=== PATIENT | male | born 1950 | race Caucasian/White ===

== ENCOUNTER 2022-12-04 18:10 | Outpatient (RCR) | payer MEDICARE, SELFPAY | END 2022-12-29 23:59 | disposition home or self-care (01) | LOC: MM 18:10 | PROVIDERS: PCP Nurse Practitioner Family; Visit Provider Internal Medicine | DX: Z51.81 Encounter for therapeutic drug level monitoring (principal); Z79.01 Long term (current) use of anticoagulants; I48.0 Paroxysmal atrial fibrillation ==

== ENCOUNTER 2022-12-26 09:06 | Outpatient (OUT) | payer MEDICARE, SELFPAY ==
[2022-12-26 09:29] LABS: Basophils Percent Auto 0.3 % (0.2-2.0); Eosinophils Absolute Auto 0.1 10^3/uL (0.0-0.7); Eosinophils Percent Auto 1.7 % (0.9-7.0); Hematocrit 43.9 % (42.0-54.0); Hemoglobin 14.4 g/dL (14.0-18.0); Immature Granulocytes Abs Auto 0.03 10^3/uL (0.00-0.03); Immature Granulocytes Pct Auto 0.5 % (0.0-0.5); Lymphocytes Absolute Auto 1.8 10^3/uL (1.2-3.8); Lymphocytes Percent Auto 31.4 % (20.5-60.0); Mean Corpuscular HGB Conc 32.8 g/dL (29.9-35.2); Mean Corpuscular Hemoglobin 33.3 pg (25.9-34.0); Mean Corpuscular Volume 101.4 fL (80.0-94.0); Mean Platelet Volume 9.6 fL (9.5-13.5); Monocytes Absolute Auto 0.4 10^3/uL (0.3-0.8); Monocytes Percent Auto 7.1 % (1.7-12.0); Neutrophils Absolute Auto 3.4 10^3/uL (1.4-6.5); Platelet Count 275 10^3/uL (150-450); Red Blood Count 4.33 10^6/uL (4.70-6.10); White Blood Count 5.7 10^3/uL (4.0-11.0)
[2022-12-26 10:47] LABS: Estimated Average Glucose 192 mg/dL; Glycohemoglobin A1C 8.3 % (4.5-6.2)
[2022-12-26 11:27] LABS: Alanine Aminotransferase 17 U/L (16-63); Albumin Globulin Ratio 1.2; Albumin Level 3.8 g/dL (3.4-5.0); Alkaline Phosphatase 39 U/L (46-116); Anion Gap 11.7; Aspartate Amino Transferase 19 U/L (15-37); BUN Creatinine Ratio 14.6; Bilirubin Total 0.9 mg/dL (0.2-1.0); Calcium 8.9 mg/dL (8.5-10.1); Carbon Dioxide 30.8 mmol/L (21.0-32.0); Chloride 102 mmol/L (98-107); Cholesterol 112 mg/dL (<=200); Estimated GFR (African America >60 (>=60); Estimated GFR (Non-African Ame >60 (>=60); Free T3 2.05 pg/mL (2.18-3.98); Globulin 3.2 g/dL; Glucose 158 mg/dL (74-106); HDL Cholesterol 57 mg/dL (40-60); LDL Cholesterol Calculated 41.4 mg/dL; Potassium 4.5 mmol/L (3.5-5.1); Sodium 140 mmol/L (136-145); Thyroid Stimulating Hormone 6.165 uIU/mL (0.358-3.740); Triglycerides 68 mg/dL (<=150); Uric Acid 3.3 mg/dL (3.5-7.2); VLDL CHOLESTEROL 13.6 mg/dL
[2022-12-27 11:28] LABS: Insulin 58.8 uIU/mL (2.6-24.9)
== END 2022-12-26 09:07 | disposition home or self-care (01) ==
LOC: LAB 09:09
PROVIDERS: PCP Nurse Practitioner Family; Visit Provider Nurse Practitioner Family
DX: E78.5 Hyperlipidemia, unspecified (principal); Z12.5 Encounter for screening for malignant neoplasm of prostate
CPT/HCPCS: 36415; 80053; 80061; 83036; 83525; 84436; 84443; 84481; 84550; 85025; G0103

== ENCOUNTER 2023-01-03 06:45 | Outpatient (OUT) | payer MEDICARE, SELFPAY ==
[2023-01-03 07:15] LABS: Basophils Percent Auto 0.5 % (0.2-2.0); Eosinophils Absolute Auto 0.1 10^3/uL (0.0-0.7); Eosinophils Percent Auto 1.1 % (0.9-7.0); Hematocrit 40.7 % (42.0-54.0); Hemoglobin 13.3 g/dL (14.0-18.0); Immature Granulocytes Abs Auto 0.03 10^3/uL (0.00-0.03); Immature Granulocytes Pct Auto 0.5 % (0.0-0.5); Lymphocytes Absolute Auto 1.8 10^3/uL (1.2-3.8); Lymphocytes Percent Auto 27.8 % (20.5-60.0); Mean Corpuscular HGB Conc 32.7 g/dL (29.9-35.2); Mean Corpuscular Hemoglobin 33.1 pg (25.9-34.0); Mean Corpuscular Volume 101.2 fL (80.0-94.0); Mean Platelet Volume 9.8 fL (9.5-13.5); Monocytes Absolute Auto 0.6 10^3/uL (0.3-0.8); Monocytes Percent Auto 8.4 % (1.7-12.0); Neutrophils Percent Auto 61.7 % (43.0-75.0); Platelet Count 264 10^3/uL (150-450); Red Blood Count 4.02 10^6/uL (4.70-6.10); White Blood Count 6.5 10^3/uL (4.0-11.0)
[2023-01-03 09:41] LABS: Alanine Aminotransferase 20 U/L (16-63); Albumin Globulin Ratio 1.5; Albumin Level 4.2 g/dL (3.4-5.0); Alkaline Phosphatase 41 U/L (46-116); Anion Gap 11.8; Aspartate Amino Transferase 23 U/L (15-37); BUN Creatinine Ratio 17.3; Bilirubin Direct 0.2 mg/dL (0.0-0.2); Bilirubin Total 0.8 mg/dL (0.2-1.0); Calcium 8.6 mg/dL (8.5-10.1); Carbon Dioxide 27.6 mmol/L (21.0-32.0); Chloride 103 mmol/L (98-107); Cholesterol 117 mg/dL (<=200); Estimated GFR (African America >60 (>=60); Estimated GFR (Non-African Ame >60 (>=60); Globulin 2.8 g/dL; Glucose 195 mg/dL (74-106); HDL Cholesterol 58 mg/dL (40-60); LDL Cholesterol Calculated 45.6 mg/dL; Potassium 4.4 mmol/L (3.5-5.1); Sodium 138 mmol/L (136-145); Triglycerides 67 mg/dL (<=150); VLDL CHOLESTEROL 13.4 mg/dL
[2023-01-04 05:07] LABS: HBsAg Screen Negative (Negative); HCV Antibody Non Reactive (Non Reactive); Hep B Core Ab, Tot Negative (Negative); Hep B Surface Ab Non Reactive (.)
[2023-01-05 11:08] LABS: QuantiFERON-TB Gold Plus Negative (Negative)
== END 2023-01-03 06:46 | disposition home or self-care (01) ==
LOC: LAB 06:45
PROVIDERS: PCP Nurse Practitioner Family; Visit Provider Dermatology
DX: L40.0 Psoriasis vulgaris (principal); Z79.899 Other long term (current) drug therapy
CPT/HCPCS: 36415; 80053; 80061; 82248; 85025; 86480; 86704; 86706; 86803; 87340

== ENCOUNTER 2023-11-01 08:25 | Outpatient (OUT) | payer MEDICARE, SELFPAY ==
[2023-11-01 08:56] LABS: Anion Gap 12.3; BUN Creatinine Ratio 14.3; Calcium 9.1 mg/dL (8.5-10.1); Carbon Dioxide 28.9 mmol/L (21.0-32.0); Chloride 104 mmol/L (98-107); Estimated GFR (African America >60 (>=60); Estimated GFR (Non-African Ame >60 (>=60); Glucose 124 mg/dL (74-106); Potassium 4.2 mmol/L (3.5-5.1); Sodium 141 mmol/L (136-145)
== END 2023-11-01 08:26 | disposition home or self-care (01) ==
LOC: LAB 08:27
PROVIDERS: PCP Nurse Practitioner Family; Visit Provider Internal Medicine Cardiovascular Disease
DX: I48.0 Paroxysmal atrial fibrillation (principal)
CPT/HCPCS: 36415; 80048

== ENCOUNTER 2023-12-11 07:34 | Outpatient (OUT) | payer MEDICARE, SELFPAY ==
--- OUTSIDE RECORDS SUMMARY | 2023-12-11 07:38 | XMS_ITS | CCD ---
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 Role Phone Miladis Pereira Primary Care Provider [phone] UNKNOWN, PHYSICIAN Primary Care Unavailable SELF, REFERRED Referring Unavailable AREN SPARROW Attending Unavailable AREN SPARROW Admitting Unavailable BENJAMIN PATEL Attending Unavailable BENJAMIN PATEL Admitting Unavailable SELF, REFERRED Referring Unavailable SELF, REFERRED Primary Care Unavailable UNKNOWN, PHYSICIAN Primary Care Unavailable SELF, REFERRED Referring Unavailable KAYLA BETTS Attending Unavailable KAYLA BETTS Admitting Unavailable LAKSHMIPATHY ., CATIA Attending Leena vailable LAKSHMIPATHY ., ROSAATH Admitting Leena vailable HOY ., DR PALACIOS Primary Care Unavailable FAWWAD, ONTIVEROS H Admitting Unavailable HOY ., DR PALACIOS Primary Care Unavailable FAWWAD, ONTIVEROS H Attending Unavailable FAWWAD, ONTIVEROS H Admitting Unavailable HOY ., DR PALACIOS Primary Care Unavailable FAWWAD, ONTIVEROS H Attending Unavailable SYDNEE ., DR VARSHA Gonzalez Admitting Unavailable MILADIS PEREIRA Primary Care Unavailable RANDHAWA ., DR VARSHA Gonzalez Attending Unavailable SYDNEE ., DR VARSHA Gonzalez Consulting Unavailable LAKSHMIPATHY ., CATIA Consulting Leena vailable LAKSHMIPATHY ., NARENDTINYATH Attending Leena vailable LAKSHMIPATHY ., NARENDTINYATH Admitting Leena vailable MILADIS PEREIRA Primary Care Unavailable FAWWAD, ONTIVEROS H Admitting Unavailable HOY ., DR PALACIOS Primary Care Unavailable FAWWAD, ONTIVEROS H Attending Unavailable FAWWAD, ONTIVEROS H Admitting Unavailable FAWWAD, ONTIVEROS H Attending Unavailable HOY ., DR PALACIOS Primary Care Unavailable HOY ., DR PALACIOS Primary Care Unavailable HOY ., DR PALACIOS Consulting Unavailable RANDHAWA ., DR VARSHA Gonzalez Attending Unavailable RANDHAWA ., DR VARSHA Gonzalez Admitting Unavailable RANDHAWA ., DR VARSHA Gonzalez Consulting Unavailable AGUBOSIM, LOULOU Consulting Unavailable LAKSHMIPATHY ., NARENDRANATH Consulting Leena vailable LAKSHMIPATHY ., NARENDRANATH Attending Leena vailable LAKSHMIPATHY ., NARENDRANATH Admitting Leena vailable HOY ., DR PALACIOS Primary Care Unavailable FAWWAD, ONTIVEROS H Admitting Unavailable HOY ., DR PALACIOS Primary Care Unavailable FAWWAD, ONTIVEROS H Attending Unavailable FAWWAD, ONTIVEROS H Admitting Unavailable HOY ., DR PALACIOS Primary Care Unavailable FAWWAD, ONTIVEROS H Attending Unavailable FAWWAD, ONTIVEROS H Admitting Unavailable HOY ., DR PALACIOS Primary Care Unavailable FAWWAD, ONTIVEROS H Attending Unavailable FAWWAD, ONTIVEROS H Admitting Unavailable FAWWAD, ONTIVEROS H Attending Unavailable HOY ., DR PALACIOS Primary Care Unavailable FAWWAD, ONTIVEROS H Attending Unavailable FAWWAD, ONTIVEROS H Admitting Unavailable [facility] Primary Care Unavailable FAWWAD, ONTIVEROS H Admitting Unavailable HOY ., DR PALACIOS Primary Care Unavailable FAWWAD, ONTIVEROS H Attending Unavailable LAKSHMIPATHY ., NARENDRANATH Attending Leena vailable LAKSHMIPATHY ., NARENDRANATH Admitting Leena vailable HALKER ., ROSLYN Consulting Unavailable [facility] Primary Care Unavailable ALEX ., DIANA Consulting Unavailable RANDHAWA ., DR VARSHA Gonzalez Admitting Unavailable RANDHAWA ., DR VARSHA Gonzalez Attending Unavailable HOY ., DR PALACIOS Primary Care Unavailable LAKSHMIPATHY ., NARENDRANATH Attending Leena vailable LAKSHMIPATHY ., NARENDRANATH Admitting Leena vailable CÉSAR IBANEZ Consulting Unavaila ble [facility], [place] Primary Care Unavailable LAKSHMIPATHY ., NARENDRANATH Consulting Leena vailable LAKSHMIPATHY ., NARENDRANATH Admitting Leena vailable LAKSHMIPATHY ., CATIA Attending Leena esilable RAFFAELE ., DR PALACIOS Primary Care Unavailable RICHARD, DR MAKENNA Lopez Consulting Unavailable LAKSHMIPATHY ., CATIA Consulting Leena vailable ALGHOTHANI, MOHAMAD Attending Unavailable RICHARD, DR MAKENNA Lopez Consulting Unavailable ALGHOTHANI, MOHAMAD Admitting Unavailable MILADIS PEREIRA Primary Care Unavailable MARISEL, DEEJAY Consulting Unavailable RAFFAELE ., DR PALACIOS Consulting Unavailable SYDNEE ., DR VARSHA Gonzalez Admitting Unavailable RAFFAELE ., DR PALACIOS Primary Care Unavailable RANDHAWA ., DR VARSHA Gonzalez Attending Unavailable ISAI .DIANA Consulting Unavailable FAFLAQUITA, H Admitting Unavailable LIAN PARKIKH H Attending Unavailable MILADIS PEREIRA Primary Care Unavailable AREN SPARROW Attending Unavailable MIMI HERNANDEZ Attending Unavailable AREN SPARROW Admitting Unavailable AREN SPARROW Attending Unavailable AREN SPARROW Referring Unavailable AREN SPARROW Referring Unavailable Allergies Allergy Classification Reported Allergen(s) Allergy Type Date of Onset Reaction(s) Facility (2 sources) Clindamycin; Translations: [CLINDAMYCIN PHOSPHATE] Drug Allergy 12-12-2018 [facility] Medications Completed/Discontinued Medications Medication Drug Class(es) Dates Sig (Normalized) Sig (Original) atorvastatin 80 mg oral tablet (1 source) HMG-CoA Reductase Inhibitor Start: 02-23-2020 atorvastatin (LIPITOR) 80 mg tablet Take by mouth. 0 02/23/2020 Active Comment on above: Take by mouth. glipiZIDE 5 mg oral tablet (1 source) Sulfonylurea Start: 02-23-2020 glipiZIDE (GLUCOTROL) 5 mg tablet Take by mouth. 0 02/23/2020 Active Comment on above: Take by mouth. insulin, isophane / Regular Insulin, Human (1 source) Insulin Start: 11-11-2019 insulin NPH-insulin regular (HumuLIN 70/30) pen Inject subcutaneously. 0 11/11/2019 Active Comment on above: Inject subcutaneousl y. lisinopril 2.5 mg oral tablet (1 source) Angiotensin Converting Enzyme Inhibitor Start: 02-23-2020 lisinopril 2.5 mg tablet Take by mouth. 0 02/23/2020 Active Comment on above: Take by mouth. metFORMIN hydrochloride 1000 mg oral tablet (1 source) Biguanide Start: 02-23-2020 metFORMIN (GLUCOPHAGE) 1,000 mg tablet Take by mouth. 0 02/23/2020 Active Comment on above: Take by mouth. sotalol hydrochloride 80 mg oral tablet (1 source) Antiarrhythmic Start: 11-11-2019 sotalol (BETAPACE) 80 mg tablet Take 80 mg by mouth. 0 11/11/2019 Active Comment on above: Take 80 mg by mouth. warfarin sodium 5 mg oral tablet (1 source) Vitamin K Antagonist Start: 02-23-2020 warfarin (COUMADIN) 5 mg tablet Take by mouth. 0 02/23/2020 Active Comment on above: Take by mouth. Problems Problem Classification Problem Date Documented Date Episodic/Chronic Cancer of bladder (1 source) Personal history of malignant neoplasm of bladder; Translations: [PERSONAL HX MALIG NEOPLASM BLADDER] Onset: 11-09-2022 Episodic Cardiac dysrhythmias (7 sources) Paroxysmal atrial fibrillation; Translations: [PAROXYSMAL ATRIAL FIBRILLATION] Onset: 10-02-2022 Chronic Cardiac dysrhythmias (2 sources) Bradycardia, unspecified; Translations: [Bradycardia, unspecified] Onset: 11-21-2022 Episodic Congestive heart failure; nonhypertensive (2 sources) Chronic systolic (congestive) heart failure; Translations: [Chronic systolic (congestive) heart failure] Onset: 11-03-2022 Chronic Coronary atherosclerosis and other heart disease (2 sources) Atherosclerotic heart disease of [place] coronary artery without angina pectoris; Translations: [Atherosclerotic heart disease of [place] coronary artery without angina pectoris] Onset: 11-03-2022 Chronic Diabetes mellitus without complication (1 source) Type 2 diabetes mellitus without complications; Translations: [TYPE 2 DM WITHOUT COMPLICATIONS] Onset: 11-09-2022 Chronic Disorders of lipid metabolism (5 sources) Pure hypercholesterolemia, unspecified; Translations: [Mixed hyperlipidemia] Onset: 03-17-2022 Chronic Essential hypertension (3 sources) Essential (primary) hypertension; Translations: [ESSENTIAL PRIMARY HYPERTENSION] Onset: 03-17-2022 Chronic Other aftercare (1 source) snf (current) use of insulin; 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] Onset: 11-09-2022 Episodic Other aftercare (1 source) medical terminologist (current) use of aspirin; Translations: [SKILLED NURSING CURRENT USE OF ASPIRIN] Onset: 11-09-2022 Episodic Other aftercare (1 source) medical terminologist (current) use of oral hypoglycemic drugs; Translations: [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 USE ORAL HYPOGLYCEMIC DX] Onset: 11-09-2022 Episodic Other aftercare (5 sources) Encounter for therapeutic drug level monitoring; Translations: [[facility] DRUG LEVL MONITORING] Onset: 10-28-2022 Episodic Other aftercare (1 source) medical terminologist (current) use of anticoagulants; Translations: [SKILLED NURSING CURRNT USE ANTICOAGULANTS] Onset: 11-29-2022 Episodic Other aftercare (4 sources) Other senior care (current) drug therapy; Translations: [OTH SKILLED NURSING CURRENT DRUG THERAPY] Onset: 10-23-2022 Episodic Other nervous system disorders (1 source) Other chronic pain; Translations: [OTHER CHRONIC PAIN] Onset: 10-18-2022 Chronic Residual codes; unclassified (1 source) Procedure and treatment not carried out for other reasons; Translations: [PROC AND TX NOT CARRIED OUT OTH REASONS] Onset: 11-09-2022 Episodic Screening and history of mental health and substance abuse codes (1 source) Personal history of nicotine dependence; Translations: [PERSONAL HISTORY OF NICOTINE DEPEND] Onset: 11-09-2022 Episodic Spondylosis; intervertebral disc disorders; other back problems (4 sources) Other spondylosis with radiculopathy, lumbar region; Translations: [OTH SPONDYLS RADICULOPATHY LUMB RGN] Onset: 02-02-2022 Chronic Spondylosis; intervertebral disc disorders; other back problems (5 sources) Radiculopathy, lumbar region; Translations: [Intervertebral disc disorders with radiculopathy, lumbar region] Onset: 02-06-2022 Episodic Unclassified (1 source) LOW BACK PAIN, UNSPECIFIED; Translations: [LOW BACK PAIN, UNSPECIFIED] Onset: 05-15-2022 Unclassified (1 source) CONTACT W/AND (SUSP) EXPOS COVID-19; Translations: [CONTACT W/AND (SUSP) EXPOS COVID-19] Onset: 2022 Results Test Name Value Interpretation Reference Range Facility Physician Referralon 024 Physician Referral [id number] [facility] Office Visiton 11-21-2023 Follow-up visit [id number] Lenard Pitts 1950 M Date Provider Department Center 11/21/2023 Juan Manuel-MIMI HERNANDEZ [facility] No family history on file Level of Service:77240 NE OFFICE/OUTPATIENT ESTABLISHED MOD MDM 30 MIN Reason for Visit and Comments: Follow-up [887646] - Follow up from cardioversion Normal [facility] 11-05-2023 [facility] Electrophysiology Consult Note Reason for visit: afib HPI: Lenard Pitts is a 73 y.o. year old with past medical history of HTN/ DM2/ Persistent/? Permanent A-fib on amiodarone, metoprolol and warfarin, CAD, hypertension, hyperlipidemia. He was recently at [facility] ER in August 2021 for strokelike symptoms which have resolved and MRI at the time was negative for any acute infarct. He has history of cardioversion x2 and failed therapy on sotalol. Currently asymptomatic of his A-fib and has been tolerating amiodarone Denies chest pain, SOB, palpitations, lightheadedness/syncop e, and bleeding on Eliquis. No recent labs/imaging. He was seen by Kishor KHALIL and was started on amiodarone. seem to be tolerating his DOAC. PMH: No past medical history on file. PSH: No past surgical history on file. SH: Social Determinants of Health Tobacco Use: Medium Risk (11/21/2022) Patient History Smoking Tobacco Use: Former Smokeless Tobacco Use: Never Passive Exposure: Not on file Alcohol Use: Not on file Financial Resource Strain: Not on file Food Insecurity: Not on file Transportation Needs: Not on file Physical Activity: Not on file Stress: Not on file Social Connections: Not on file Intimate Partner Violence: Unknown (08/23/2023) MD Safety & Environment Fear of Current or Ex-Partner: Not on file Emotionally Abused: Not on file Physically Abused: Not on file Sexually Abused: Not on file Physically or Sexually Abused: Not on file Depression: Not on file Housing Stability: Not on file Utilities: Not on file Allergies: Allergies Allergen Reactions Clindamycin Phosphate Swelling Weight: 86.2kg Visit Vitals BP 133/76 Pulse 55 Resp 18 Wt 83.9 kg (185 lb) SpO2 99% BMI 28.98 kg/m??? Smoking Status Former BSA 1.99 m??? Meds: No current facility-administered medications on file prior to encounter. Current Outpatient Medications on File Prior to Encounter Medication Sig Dispense Refill amiodarone (Pacerone) 200 mg tablet Take 1 tablet (200 mg) by mouth once daily as directed. 90 tablet 3 apixaban (Eliquis) 5 mg tablet Take 1 tablet (5 mg) by mouth in the morning and at bedtime. 60 tablet 11 apixaban (Eliquis) 5 mg tablet Take 1 tablet (5 mg) by mouth in the morning and at bedtime. 180 tablet 3 aspirin 81 mg chewable tablet Chew 1 tablet every day by oral route. atorvastatin (Lipitor) 80 mg tablet Take 1 tablet every day by oral route. empagliflozin (Jardiance) 10 mg Take 1 tablet every day by oral route for 30 days. 90 tablet 3 folic acid (Folvite) 1 mg tablet TAKE ONE PILL BY MOUTH ON THE DAYS NOT TAKING THE METHOTREXATE. insulin NPH and regular human (NovoLIN) 100 unit/mL (70-30) injection lisinopril 5 mg tablet TAKE 1 TABLET EVERY DAY (Patient taking differently: Take 2.5 mg by mouth in the morning.) 90 tablet 3 metFORMIN (Glucophage) 1,000 mg tablet Take 1 tablet twice a day by oral route for 90 days. methotrexate 2.5 mg tablet TAKE 4 TABLETS BY MOUTH ONCE WEEKLY ON SUNDAY metoprolol succinate XL (Toprol-XL) 25 mg 24 hr tablet TAKE 1 TABLET ONE TIME DAILY DIRECTED . DO NOT CRUSH OR CHEW 90 tablet 3 multivitamin tablet Take 1 tablet by mouth in the morning. amiodarone (Pacerone) 200 mg tablet Take 1 tablet (200 mg) by mouth in the morning. 90 tablet 3 empagliflozin (Jardiance) 25 mg Take 25 mg by mouth in the morning. nitroglycerin (Nitrostat) 0.4 mg SL tablet [DISCONTINUED] warfarin (Coumadin) 5 mg tablet Take by mouth. ROS: Review of Systems HENT: Positive for hearing loss. Musculoskeletal: Positive for back pain and joint pain. All other systems reviewed and are negative. Physical Exam: Constitutional General Appearance: well-nourished, well-developed, appears stated age Level of Distress: comfortable Psychiatric Mental Status: alert, normal affect Orientation: oriented to time, place, and person Insight: good judgement Eyes Lids and Conjunctivae: non-injected, no xanthelasma ENMT Ears: no lesions on external ear Nose: no lesions on external nose Oropharynx: no cyanosis, no pallor Neck Neck: supple, trachea midline Carotid Arteries: bilateral normal upstroke, no bruits Jugular Veins: normal jugular venous pressure Thyroid: not enlarged Lungs Respiratory Effort: unlabored Chest Exam: normal curvature, no thoracic deformity Auscultation: clear, no wheezing, no rales, no rhonchi Cardiovascular Rate And Rhythm: regular Heart Sounds: normal S1, normal s2, no gallop Systolic Murmur: not heard Diastolic Murmur: not heard Extremities: no cyanosis, no edema, no peripheral signs of emboli Peripheral Pulses Radial Pulse: normal Abdomen Inspection and Palpation: soft, non distended, no bruit, non tender Musculoskeletal Inspection: no joint swelling Neurologic Gait: normal gait Skin Inspection and Palpation: warm and dry Nails: no clubbing Labs: 10/23/22 TSH elevated Liver function no (more content not included)... Normal [facility] NURSNOTEon 11-05-2023 NURSNOTE RN educated pt on d/ c instructions. RN encouraged pt to voice any questions or concerns. Pt verbalizes no questions or concerns at this time. Pt was wheeled off of unit with all of belongings. Normal [facility] Orders Onlyon 10-29-2023 Orders Only [id number] Lenard Pitts 1950 M Date Provider Department Center 10/29/2023 JOSUE SMITH [facility] No family history on file Normal [facility] Office Visiton 10-16-2023 Follow-up visit [id number] Lenard Pitts 1950 M Date Provider Department Center 10/16/2023 Alysha-AREN SPARROW [facility] No family history on file Level of Service:47879 NE OFFICE/OUTPATIENT NEW MODERATE MDM 45 MINUTES Normal [facility] POINT OF CARE GLUCOSEon 05-0 Glucose [Mass/Vol] 228 mg/dL Critically high 74-106 [facility] Comment on above: Performed By: #### P OCGLUC #### [facility] [address] [place], [place] [address] Dr. Alex Doll PROTIMEon 11-07-2022 INR Coag (PPP) [Relative time] 1.03 {INR} Normal [facility] Comment on above: Performed By: #### T , LIVER #### [facility] [address] [place], [place] [address] Dr. Alex Doll INR GUIDELINES SEE BELOW Normal [facility] Comment on above: Result Comment: TARA RED INR: 2.0 - 3.0 CONDITIONS NOT LISTED BELOW 2.5 - 3.5 FOR PROSTHETIC HEART VALVE REPLACEMENT 2.5 - 3.5 RECURRENT THROMBOSIS Performed By: #### T SH, LIVER #### [facility] [address] [place] [address] [address] Alex Doll PT Coag (PPP) [Time] 10.9 s Normal 9.0-11.6 [facility] Comment on above: Performed By: #### T , LIVER #### [facility] [address] [place] [address] [address] Alex Doll MRI LSPINE WO CONon 11-02-19 MRI LSPINE WO CON EXAM: MRI LSPINE WO CON HISTORY: Lumbar radiculopathy COMPARISON: Lumbar spine radiographs 10/17/[address] lumbar spine 10/13/2021. TECHNIQUE: Multiplanar multisequence MR imaging of the lumbar spine was performed without intravenous contrast. FINDINGS: Alignment: No substantial subluxation. Vertebrae: Vertebral body heights are maintained. No marrow signal abnormalities to suggest neoplasm. Conus medullaris: Conus terminates in normal position at L2. Normal signal and contour. Degenerative changes: Lower thoracic spine: Disc desiccation and disc height loss with Schmorl's nodes. Small disc bulges at T11-T12. There is mild canal stenosis at T10-T11. Moderate bilateral foraminal stenosis. T12-L1: Mild disc height loss with diffuse disc bulge. Minimal facet arthropathy. Mild canal stenosis. No substantial foraminal stenosis. L1-L2: Minimal diffuse disc bulge. Mild right greater than left facet arthropathy with minimal thickening of ligamentum flavum. No substantial canal stenosis. Mild right foraminal stenosis. Left foramen is patent. Schmorl's node involving superior endplate of L1.. L2-L3: Diffuse disc bulge slightly eccentric to left. Mild to moderate right and mild left facet arthropathy with thickening of ligamentum flavum. Mild to moderate canal stenosis. Moderate right and mild to moderate left foraminal stenosis. L3-L4: Diffuse disc bulge. Moderate facet arthropathy with thickening of ligamentum flavum. Moderate canal stenosis. Moderate right greater than left foraminal stenosis. L4-L5: Eccentric left disc bulge. Moderate left and mild right facet arthropathy with prominent thickening of ligamentum flavum greater on the left. Mild canal stenosis with narrowing of left subarticular recess. Mild right and advanced left foraminal stenosis. There is an anteriorly projecting left synovial cyst measuring 3.5 x 5.2 x 12 mm. L5-S1: Moderate left and mild right facet arthropathy. No substantial canal or foraminal stenosis. Upper Sacrum: No focal lesion identified. Additional comments: Visualized intra-abdominal/pelvic soft tissues are grossly unremarkable. IMPRESSION: 1. Moderate degenerative change of lower thoracic and lumbar spine as detailed above with canal stenosis most prominent at L3-L4 with moderate canal stenosis. 2. Prominent degenerative changes are also noted at L4-L5 with anteriorly projecting left synovial cyst detailed above. 3. Varying degrees of foraminal stenosis detailed above. Electronically authenticated by: CÉSAR IBANEZ Date: 2022-11-01 10:08 Normal [facility] FREE T4on 10-23-2022 Free T4 [Mass/Vol] 0.89 ng/dL Normal 0.76-1.46 [facility] Comment on above: Performed By: #### F T4 #### [facility] [address] [place] [address] Dr. Alex Doll LIVER PROFILEon 10-23-2022 Albumin [Mass/Vol] 3.8 g/dL Normal 3.4-5.0 [facility] Comment on above: Performed By: #### T SH, LIVER #### [facility] [address] [place] [address] Dr. Alex Doll Albumin/Globulin [Mass ratio] 1.2 {ratio} Normal [facility] Comment on above: Performed By: #### T SH, LIVER #### [facility] [address] [place] [address] Dr. Alex Doll ALP [Catalytic activity/Vol] 40 U/L Critically low 46-116 [facility] Comment on above: Performed By: #### T SH, LIVER #### [facility] [address] [place] [address] Dr. Alex Doll ALT [Catalytic activity/Vol] 20 U/L Normal 16-63 [facility] Comment on above: Performed By: #### T SH, LIVER #### [facility] [address] [place] [address] [address] Alex Doll AST [Catalytic activity/Vol] 22 U/L Normal 15-37 [facility] Comment on above: Performed By: #### T SH, LIVER #### [facility] [address] [place] [address] Dr. Alex Doll BILI, CONJUGATED 0.2 mg/dL Normal 0.0-0.2 [facility] Comment on above: Performed By: #### T EVER, LIVER #### [facility] [address] [place] [address] Dr. Alex Doll Bilirubin [Mass/Vol] 0.9 mg/dL Normal 0.2-1.0 [facility] Comment on above: Performed By: #### T SH, LIVER #### [facility] [address] [place] [address] Dr. Alex Doll Globulin (S) [Mass/Vol] 3.3 g/dL Normal [facility] Comment on above: Performed By: #### T EVER, LIVER #### [facility] [address] [place] [address] Dr. Alex Doll Protein [Mass/Vol] 7.1 g/dL Normal 6.4-8.2 [facility] Comment on above: Performed By: #### T SH, LIVER #### [facility] [address] [place] [address] Dr. Alex Doll TSHon 10-23-2022 TSH 6.589 uIU/mL Critically high 0.358-3.740 [facility] Comment on above: Performed By: #### T SH, LIVER #### [facility] [address] [place] [address] [address] Alex Doll XR CHEST 2 Von 10-23-2022 XR CHEST 2 V EXAMINATION: XR CHES T 2 V HISTORY: Long-term current use of drug therapy COMPARISON: XR chest 10/14/2021 FINDINGS: LUNGS: No significant pulmonary parenchymal abnormalities. VASCULATURE: No increased pulmonary vasculature. PLEURA: No pneumothorax, effusion, or pleural thickening. CARDIAC: No cardiomegaly or cardiac silhouette abnormality. MEDIASTINUM: No visible mass or adenopathy. BONES: No fracture or visible bone lesion. OTHER: Negative. IMPRESSION: 1. No acute cardiopulmonary process or significant fibrosis. Electronically authenticated by: MAKENNA RAMOS Date: 2022-10-23 08:[address] [facility] XR LSPINE 2_3 VIEWSon 2022 XR LSPINE 2_3 VIEWS EXAMINATION: XR LSPI NE 2_3 VIEWS HISTORY: Lumbar radiculopathy COMPARISON: XR L-spine 10/14/2021 FINDINGS: BONES: Moderate left convex curvature of thoracolumbar spine. No fracture or spondylolisthesis. Moderate-marked degenerative facet arthropathy L4-L5, L5-S1. DISC SPACES: Mild-moderate narrowing at all lumbar levels. Mild-moderate foramen narrowing L3-L4 through L5-S1. PARASPINOUS: Negative. No paraspinous abnormality is seen. OTHER: Negative. IMPRESSION: 1. Multilevel moderate degenerative changes of lumbar spine; not appreciably changed. Electronically authenticated by: MAKENNA RAMOS Date: 2022-10-17 09:[address] [facility] POINT OF CARE GLUCOSEon 12-30 Glucose [Mass/Vol] 154 mg/dL Critically high 74-[address] [facility] Comment on above: Performed By: #### P OCGLUC #### [facility] [address] [address] [address] Alex Doll Covid-19 PCR (CVDTB)on 12-30 SARS-CoV-2 (COVID-19) RNA RICH+probe Ql (Unsp spec) Not detected Normal NOT DETECTED [facility] Comment on above: Result Comment: This test is not yet approved or cleared by the [place] FDA. When there are no FDA-approved or cleared tests available, and other criteria are met, FDA can make tests available under an emergency access mechanism called an Emergency Use Authorization (EUA). The EUA for this test is supported by the [place] of Health and Human Service's (HHS's) declaration that circumstances exist to justify the emergency use of in vitro diagnostics for the detection and/or diagnosis of the virus that causes COVID-19. This EUA will remain in effect (meaning this test can be used) for the duration of the COVID-19 declaration justifying emergency of IVDs, unless it is terminated or revoked by FDA (after which the test may no longer be used). When diagnostic testing is negative, the possibility of a false negative should be considered in the context of a patient's recent exposures and the presence of clinical signs and symptoms consistent with SARS-CoV-2. Performed By: #### T , LIVER #### [facility] [address] [address] [address] Alex Doll Cardiovascular Lab Reporton 07-01-2021 Cardiovascular Lab Report [facility] Patient Name: Lenard Pitts MR #: [id number] [facility] Physician: Benjamin Patel CNP Department of Service Date: 06/29/2021 Medicine Birthdate: 1950 Division of Room #: CC Cardiology Adult Cardiovascular Services [place] [address] Cardiovascular Laboratory Report FINAL IMPRESSIONS: 1. Mild CAD, stable from previous coronary angiography RECOMMENDATIONS: 1. Aggressive risk factor modification. 2. Optimization of medical management for non obstructive CAD 3. Follow up with PCP as scheduled PROCEDURE: After risks, benefits, and alternatives were explained, written informed consent was obtained. The patient was prepped and draped in usual sterile fashion. Using 1% lidocaine solution, local infiltration anesthesia was achieved over the left radial artery. Using a micropuncture kit, access to the right radial artery was obtained. Coronary angiography was performed using the JR4 guide cathether and JL4 diagnositc catheters. After reviewing the images, it was elected to conclude the procedure. Overall, the patient tolerated the procedure well. There were no obvious complications. He was to be transferred to Recovery in stable condition. FINDINGS: Hemodynamics: AO 126/76. Left Ventriculography: This was not performed. Ejection fraction: Normal by noninvasive imaging. CORONARY ARTERIES: Left Main Coronary Artery: This arises from the left coronary cusp. It bifurcates into the left anterior descending and left circumflex coronary artery. No significant stenosis noted Left Anterior Descending: Luminal irregularities throughout in LAD. Patient has 50% stenosis in ostial septal branch. This is a small branch and image appears stable from previous coronary angiography Left Circumflex: No signficiant stenosis noted Right coronary artery: This arises from the right coronary cusp. No significant stenosis noted. INDICATIONS: Chest pain Electronically Signed by: Deejay Hermosillo MD 07/01/2021 11:41 A Benjamin Patel CNP Date Dict: 07/01/2021/11:33 A/Deejay Hermosillo MD Date Trans: 07/01/2021 11:33 A/ [id number] Normal [facility] CBC W/DIFFon 06-29-2021 ABS IMM GRANS 0.0 10*3/uL Normal 0.0-0.2 [facility] Comment on above: Performed By: #### 5 0103 #### [facility] [address] [place] [address], [facility] ABS NEUTROPHILS 4.2 10*3/uL Normal 1.6-7.6 [facility] Comment on above: Performed By: #### 5 0103 #### [facility] [address] [place] [address], [facility] Basophils (Bld) [#/Vol] 0.0 10*3/uL Normal 0.0-0.2 [facility] Comment on above: Performed By: #### 5 0103 #### [facility] [address] [place] [address], [facility] Basophils/100 WBC (Bld) 0.6 % Normal 0.0-1.0 [facility] Comment on above: Performed By: #### 5 0103 #### [facility] [address] [place] [address], [facility] Eosinophils (Bld) [#/Vol] 0.1 10*3/uL Normal 0.0-0.5 [facility] Comment on above: Performed By: #### 5 0103 #### [facility] [address] [place] [address], [facility] Eosinophils/100 WBC (Bld) 1.3 % Normal 0.0-6.0 [facility] Comment on above: Performed By: #### 5 0103 #### [facility] [address] Erythrocyte distribution width (RBC) [Ratio] 12.7 % Normal 11.5-15.0 [facility] Comment on above: Performed By: #### 5 0103 #### [facility] [address] [place] [address], [facility] Hematocrit (Bld) [Volume fraction] 43.8 % Normal 39.0-50.0 [facility] Comment on above: Performed By: #### 5 0103 #### [facility] [address] [place] [address], [facility] Hemoglobin (Bld) [Mass/Vol] 14.5 g/dL Normal 13.0-17.0 [facility] Comment on above: Performed By: #### 5 0103 #### [facility] [address] [place] [address], [facility] IMMATURE GRANS 0.3 % Normal 0.0-1.0 [facility] Comment on above: Performed By: #### 5 0103 #### [facility] [address] [place] [address], [facility] Lymphocytes (Bld) [#/Vol] 1.9 10*3/uL Normal 1.2-4.0 [facility] Comment on above: Performed By: #### 5 0103 #### [facility] [address] [place] [address], [facility] Lymphocytes/100 WBC (Bld) 28.5 % Normal 20.0-45.0 [facility] Comment on above: Performed By: #### 5 3 #### [facility] [address] [place] [address], [facility] MCH (RBC) [Entitic mass] 32.7 pg Normal 27.0-33.0 [facility] Comment on above: Performed By: #### 3 #### [facility] [address] [facility] [place] [address], [facility] MCHC (RBC) [Mass/Vol] 33.1 g/dL Normal 32.0-35.0 [facility] Comment on above: Performed By: #### 5 3 #### [facility] [address] [facility] [place] [address], [facility] MCV (RBC) [Entitic vol] 98.9 fL High 82.0-98.0 [facility] Comment on above: Performed By: #### 5 102 #### [facility] [address] [place] [address], [facility] Monocytes (Bld) [#/Vol] 0.5 10*3/uL Normal 0.1-1.0 [facility] Comment on above: Performed By: #### 5 3 #### [facility] [address] [facility] [place] [address], [facility] MONOS 7.4 % Normal 5.0-12.0 [facility] Comment on above: Performed By: #### 5 3 #### [facility] [address] [place] [address], [facility] Neutrophils/100 WBC (Bld) 61.9 % Normal 40.0-72.0 [facility] Comment on above: Performed By: #### 102 #### [facility] [address] [facility] [place] [place] [address], [facility] Nucleated RBC/100 WBC (Bld) [Ratio] 0 % Normal 0-0 [facility] Comment on above: Performed By: #### 5 0103 #### [facility] [address] [place] [address], [facility] PLAT CNT 249 10*3/uL Normal 150-400 [facility] Comment on above: Performed By: #### 5 0103 #### [facility] [address] [place] [address], [facility] RBC (Bld) [#/Vol] 4.43 10*6/uL Normal 4.20-5.70 [facility] Comment on above: Performed By: #### 5 0103 #### [facility] [address] [place] [address], [facility] WBC (Bld) [#/Vol] 6.74 10*3/uL Normal 4.00-10.60 [facility] Comment on above: Performed By: #### 5 0103 #### [facility] [address] [place], [place] [id number] [place] [address] Cardiovascular Lab Reporton 05-16-2021 Cardiovascular Lab Report [facility] Patient Name: Lenard Pitts [facility] MR #: [id number] Physician: Aren Sparrow MD Department of Service Date: 05/16/2021 Medicine Birthdate: 1950 Division of Room #: CC Cardiology Adult Cardiovascular Services [facility] [address] [place], [place] [address] Cardiovascular Laboratory Report DIRECT CARDIOVERSION PROCEDURE NOTE Date: 05/16/2021. Type of procedure: DC Cardioversion. Performed by: Aren Sparrow MD. Informed consent: Signed by patient. Indication: Afib. Preparation and technique: 71-year-old gentleman who was seen by Jazmyn Patel in the [facility] who had a previous cardioversion in 2019 and that converted to sinus rhythm. 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 He had previously failed sotalol cardioversion and so he was brought after anticoagulation. After an informed consent was obtained following a discussion with the patient where I explained the risk and benefit of the procedure that is not limited to skin davis, fluid in the lungs, heart attack, stroke, or even , though that is very rare. Patches were placed in anteroposterior direction and patient was made comfortable with Versed 3mg/ Fentanyl 25mcg. Following sedation, the patient underwent 360 joules synchronized which failed to cardiovert and with repositioning and 360J. he converted to sinus rhythm. Post procedure, the patient was stable. No complications noted. Plan: Continue anticoagulation. Ct Amiodarone. Aren Sparrow MD Cardiac Electrophysiology Electronically Signed by: Aren Sparrow MD 05/18/2021 09:45 A Aren Sparrow MD Date Dict: 05/16/2021/12:56 P/Aren Sparrow MD Date Trans: 05/16/2021 03:42 P/alicia [id number] Normal [facility] CNOVon 11-23-2020 CNOV Office Visit (MARKO ) LENARD PITTS ([id number]) 1950 M Date Time Provider Department 11/23/20 2:00 PM WEIGHT, COLE ZHU During your visit today, we recorded the following information about you: Rula Nobles APRN.DOPE SPRAYER 11/23/2020 9:19 PM Signed No show Referring Provider: SREEDHAR THURMAN [[id number]] Allergies As of Date: 11/23/2020 Noted Allergy Reaction CLINDAMYCIN PHOSPHATE 12/12/2018 7 - Swelling Date Reviewed: 11/12/2020 Reviewed by: Praveena Pritchard MA - Fully Assessed Reason for Visit: No Show [1558] Primary Visit Diagnosis:NO SHOW Prescriptions as of 11/23/2020 Sig: FOLIC ACID 1 MG TABLET Take 1 mg by mouth. METHOTREXATE SODIUM 2.5 MG TA* TAKE 4 TABLEST BY MOUTH ONCE * ONE-A-DAY MEN'S MULTIVITAMIN * Take by mouth. NOVOLIN 70-30 FLEXPEN U-100 I* Inject subcutaneously twice d* MULTI-VITAMIN ORAL Take 1 tablet by mouth. WARFARIN 5 MG TABLET Take by mouth. ATORVASTATIN 80 MG TABLET Take by mouth. GLIPIZIDE 5 MG TABLET Take by mouth. LISINOPRIL 2.5 MG TABLET Take by mouth. METFORMIN 1,000 MG TABLET Take by mouth. SOTALOL 80 MG TABLET Take 80 mg by mouth. 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 CNOVSRaimundo 11-12-2020 CNOVSP Visit (SP) Office (HEMASA) LENARD PITTS ([id number]) 1950 M Date Time Provider Department 11/12/20 9:00 AM SREEDHAR THURMAN During your visit today, we recorded the following information about you: Temperature Pulse Respiration Blood pressure 97.3 degrees 70/minute 16/minute 476/92 Weight Height 94.3 kg 1.702 m Sreedhar Thurman MD 11/12/2020 9:25 AM Signed PATIENT NAME: Lenard White [facility] NO.: [id number] ATTENDING PHYSICIAN: Sreedhar Thurman MD DATE OF SERVICE: November 12, [address] Sreedhar Thurman [address] [place] [address] here is an update on a follow up visit on male Lenard Pitts at the clinic 11/12/2020 Diagnosis: 1. Bladder cancer s/p TURBT and BCG ( Last BCG 2014) Treatment History: HPI: Lenard Pitts is a 70 year old year old male here for follow up. Doing well and has not seen urology yet. Denies any urinary symptoms. PAST MEDICAL HISTORY Diagnosis Date - Atrial fibrillation (HCC) - Bladder cancer (HCC) - Diabetes mellitus type 2 (HCC) - Hyperlipidemia - Hypertension - Psoriasis Social History Tobacco Use - Smoking status: Former Smoker Quit date: 1983 Years since quittin.3 - Smokeless tobacco: Never Used Vaping Use - Vaping Use: Never used Substance Use Topics - Alcohol use: Not on file - Drug use: Not on file FAMILY HISTORY Problem Relation Age of Onset - Heart disease Mother - Diabetes Father Past medical, social and family history reviewed without any changes. REVIEW OF SYSTEMS GENERAL: No weight loss, malaise or fevers. No night sweats. HEENT: Negative for headaches, No changes in hearing or vision, no nose bleeds or other nasal problems. RESPIRATORY: Negative for cough, wheezing and shortness of breath CARDIOVASCULAR: Negative for chest pain, leg swelling and palpitations GI: Negative for abdominal discomfort, blood in stools or black stools and change in bowel habits : Negative for dysuria, frequency and incontinence MUSCULOSKELETAL: Negative for joint pain or swelling, back pain, and muscle pain. SKIN: Negative for lesions, rash, and itching. HEMATOLOGY/LYMPHOLOGY Negative for prolonged bleeding, bruising easily, and swollen nodes. NEURO: Negative for numbness or tingling of hands/feet. No weakness. PHYSICAL EXAMINATION: BP 476/92 Pulse 70 Temp (Src) 97.3 (Temporal) Resp 16 Ht 5' 7.008 (1.70m) Wt 207 lb 12.8 oz (94.3kg) SpO2 97% BMI 32.54 kg/(m2). Wt 94.3 kg (207 lb 12.8 oz) BMI 32.54 kg/m2 Last 3 Encounter Wt Readings: Date: Wt: 11/12/2020 94.3 kg (207 lb 12.8 oz) 05/25/2020 96.2 kg (212 lb) General appearance:ECOG PERFORMANCE STATUS: 0- Fully active, able to carry on all pre-disease performance w/o restriction. Patient in NAD. Skin: Skin color, texture, turgor normal. No rashes or lesions. Eyes: Anicteric sclera. Pupils are equally round and reactive to light. Extraocular movements are intact. Lymph Nodes: No cervical, supraclavicular, axillary or inguinal adenopathy. Oropharynx: Lips, mucosa, and tongue normal. Back: No pain to percussion. Negative SLR test Lungs clear to auscultation, No wheezing or rhonchi Heart: RRR without murmur, gallop, or rubs. Abdomen soft, non-tender. No masses, organomegaly Extremities: No deformities. No edema Neuro: Gait and speech normal. Reflexes normal and symmetric. Muscular strength intact. Sensation grossly intact. Rectal: Deferred : Deferred LABS: No results found for: GLUC, K, NA, CHLOR, CO2, CREAT, BUN, ANION, CA, TPROT, ALB, TBILI, ALKPHOS, AST, ALT No results found for: WBC, RBC, HB, HCT, MCV, MCH, MCHC, RDWCV, PLT, MPV, MPV, NEUT, ABSNEUT, LYMPHP, ABSLYMPH, MONOP, ABSMONO, EOSINP, ABSEOSIN, BASOP, ABSBASO PATH: Imaging: Assessment and Plan: Lenard Pitts is a 70 year old year old male here for follow up. 1. Bladder cancer- Arrange for referral for surveillance 2. Afib- FU anticoag clinic for coumadin 3. See us as needed Thank you for the kind referral. If there are any questions and or concerns please do not hesitate to contact me at [phone]. Sreedhar Thurman MD Hematology/Medical Oncology [facility] 15 I spent a total of 15 minutes on the date of the service which included preparing to see the patient, [id number] patient care, completing clinical documentation, obtaining and/or reviewing separately obtained history and ordering medications, tests, or procedures. Medical Decision Making CC: Referring Provider: SREEDHAR THURMAN [[id number]] Allergies As of Date: 11/12/2020 Noted Allergy Reaction CLINDAMYCIN PHOSPHATE 12/12/2018 7 - Swelling Date Reviewed: 11/12/2020 Reviewed by: Praveena Pritchard MA - Fully Assessed Reason for Visit: A-fib [167] Cmt: 5 month follow up Primary Visit Diagnosis:Malignant neoplasm of urinary bladder, unspecified site (HCC) [C67.9] Other Visit Diagnosis (more content not included)... Normal [facility] CNPNon 11-12-2020 CNPN Telephone (NCCAP) LENARD PITTS ([id number]) 1950 Date Time Provider Department 11/12/20 SREEDHAR THURMAN NCCAP During your visit today, we recorded the following information about you: Stacie Aaron Sec 11/12/2020 1:11 PM Signed Patient is seeing Dr. Ray wilcox [facility] in [place]. appt on 12-02-20 1:10pm [facility]. Diya, Please fax his records with the info in your mailbox. Thank you Julia [facility] 11/15/2020 10:30 AM Signed Records faxed. Allergies As of Date: 11/12/2020 Noted Allergy Reaction CLINDAMYCIN PHOSPHATE 12/12/2018 7 - Swelling Date Reviewed: 11/12/2020 Reviewed by: Praveena Pritchard MA - Fully Assessed Reason for Visit: Future Appointment [256] Prescriptions as of 11/12/2020 Sig: FOLIC ACID 1 MG TABLET Take 1 mg by mouth. METHOTREXATE SODIUM 2.5 MG TA* TAKE 4 TABLEST BY MOUTH ONCE * ONE-A-DAY MEN'S MULTIVITAMIN * Take by mouth. NOVOLIN 70-30 FLEXPEN U-100 I* Inject subcutaneously twice d* MULTI-VITAMIN ORAL Take 1 tablet by mouth. WARFARIN 5 MG TABLET Take by mouth. ATORVASTATIN 80 MG TABLET Take by mouth. GLIPIZIDE 5 MG TABLET Take by mouth. LISINOPRIL 2.5 MG TABLET Take by mouth. METFORMIN 1,000 MG TABLET Take by mouth. SOTALOL 80 MG TABLET Take 80 mg by mouth. 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 BASIC METABOLIC PANELon 07-04 Anion gap [Moles/Vol] 15 mmol/L Normal 5-15 [facility] Comment on above: Performed By: #### L AB064 ####[place] [phone] Calcium [Mass/Vol] 9.7 mg/dL Normal 8.5-10.5 [facility] Comment on above: Performed By: #### L AB064 ####[place] [phone] Chloride [Moles/Vol] 100 mmol/L Normal 96-110 [facility] Comment on above: Performed By: #### L AB064 ####[place] [phone] CO2 [Moles/Vol] 24 mmol/L Normal 19-32 [facility] Comment on above: Performed By: #### L AB064 ####[place] [phone] Creatinine [Mass/Vol] 0.6 mg/dL Normal 0.5-1.4 [facility] Comment on above: Performed By: #### L AB064 ####[place] [phone] GFR/1.73 sq M.predicted MDRD (S/P/Bld) [Vol rate/Area] 103 ML/MIN/1.73M2 Normal [facility] Comment on above: Result Comment: IF THE PATIENT IS , PLEASE MULTIPLY THIS BY 1.159. THIS RESULT HAS BEEN CALCULATED ASSUMING THE PATIENT IS NON- Performed By: #### L AB064 ####[place] [phone] Glucose [Mass/Vol] 127 mg/dL High 70-99 [facility] Comment on above: Performed By: #### L AB064 ####[place] [phone] Potassium [Moles/Vol] 4.4 mmol/L Normal 3.4-5.3 [facility] Comment on above: Performed By: #### L AB064 ####[place] [phone] Sodium [Moles/Vol] 139 mmol/L Normal 135-148 [facility] Comment on above: Performed By: #### L AB064 ####[place] [phone] Urea nitrogen [Mass/Vol] 15 mg/dL Normal 3-29 [facility] Comment on above: Performed By: #### L AB064 ####[place] [phone] Urea nitrogen/Creatinine [Mass ratio] 25 (CALC) Normal 7.0-25.0 [facility] Comment on above: Performed By: #### L AB064 ####[place] [phone] EKG Standardon 07-31-2019 EKG Standard Ventricular Rate: 65 BPM Atrial Rate: 65 BPM P-R Interval: 184 ms QRS Duration: 106 ms Q-T Interval: 424 ms QTC Calculation(Bazett): 440 ms Calculated P [place]: 49 degrees Calculated R [place]: 27 degrees Calculated T [place]: 53 degrees Diagnosis: Sinus rhythm with premature supraventricular complexes and with occasional premature ventricular complexes Incomplete right bundle branch block Nonspecific T wave abnormality Abnormal ECG Normal [facility] EKG Standard Ventricular Rate: 84 BPM Atrial Rate: 288 BPM QRS Duration: 98 ms Q-T Interval: 376 ms QTC Calculation(Bazett): 444 ms Calculated R [place]: 36 degrees Calculated T [place]: 61 degrees Diagnosis: Atrial fibrillation Nonspecific T wave abnormality Abnormal ECG Normal [facility] PROTHROMBIN TIMEon 0 INR Coag (PPP) [Relative time] 1.6 {INR} High 0.9-1.1 [facility] Comment on above: Result Comment: MODERATE-INTENSITY WARFARIN THERAPY: 2.0-3.0 HIGHER-INTENSITY WARFARIN THERAPY: 3.0-4.0 Performed By: #### L AB119 #### [place] [address] PT Coag (PPP) [Time] 18.5 s High 11.7-13.9 [facility] Comment on above: Performed By: #### L AB119 #### [place] [address] ACCUCHECK GLUCOSEon 12-07-19 19 Glucose [Mass/Vol] 198 mg/dL High 70-99 [facility] Comment on above: Result Comment: NURS E AWARE Performed By: #### L AB119 #### [place] [address] BASIC METABOLIC PANELon 060 Anion gap [Moles/Vol] 11 mmol/L Normal 5-15 [facility] Comment on above: Performed By: #### L AB119 #### [place] [address] Calcium [Mass/Vol] 8.8 mg/dL Normal 8.5-10.5 [facility] Comment on above: Performed By: #### L AB119 #### [place] [address] Chloride [Moles/Vol] 97 mmol/L Normal 96-110 [facility] Comment on above: Performed By: #### L AB119 #### [place] [address] CO2 [Moles/Vol] 31 mmol/L Normal 19-32 [facility] Comment on above: Performed By: #### L AB119 #### [place] [address] Creatinine [Mass/Vol] 0.6 mg/dL Normal 0.5-1.4 [facility] Comment on above: Performed By: #### L AB119 #### [place] [address] GFR/1.73 sq M.predicted MDRD (S/P/Bld) [Vol rate/Area] 104 ML/MIN/1.73M2 Normal [facility] Comment on above: Result Comment: IF THE PATIENT IS , PLEASE MULTIPLY THIS BY 1.159. THIS RESULT HAS BEEN CALCULATED ASSUMING THE PATIENT IS NON- Performed By: #### L AB119 #### [place] [address] Glucose [Mass/Vol] 170 mg/dL High 70-99 [facility] Comment on above: Performed By: #### L AB119 #### [place] [address] Potassium [Moles/Vol] 4.1 mmol/L Normal 3.4-5.3 [facility] Comment on above: Performed By: #### L AB119 #### [place] [address] Sodium [Moles/Vol] 139 mmol/L Normal 135-148 [facility] Comment on above: Performed By: #### L AB119 #### [place] [address] Urea nitrogen [Mass/Vol] 8 mg/dL Normal 3-29 [facility] Comment on above: Performed By: #### L AB119 #### [place] [address] Urea nitrogen/Creatinine [Mass ratio] 13 (CALC) Normal 7.0-25.0 [facility] Comment on above: Performed By: #### L AB119 #### [place] [id number] COMPLETE BLOOD COUNTon 12-06 Erythrocyte distribution width (RBC) [Ratio] 12.8 % Normal 9.0-15.0 [facility] Comment on above: Performed By: #### L AB119 #### [place] [id number] Hematocrit (Bld) [Volume fraction] 40.4 % Low 41.0-50.0 [facility] Comment on above: Performed By: #### L AB119 #### [place] [id number] Hemoglobin (Bld) [Mass/Vol] 13.9 g/dL Normal 13.8-17.2 [facility] Comment on above: Performed By: #### L AB119 #### [place] [id number] MCH (RBC) [Entitic mass] 32.2 pg Normal 27.0-33.0 [facility] Comment on above: Performed By: #### L AB119 #### [place] [id number] MCHC (RBC) [Mass/Vol] 34.4 g/dL Normal 32.0-36.0 [facility] Comment on above: Performed By: #### L AB119 #### [place] [address] MCV (RBC) [Entitic vol] 93.5 fL Normal 80.0-100.0 [facility] Comment on above: Performed By: #### L [id number] #### [place] [address] Platelets (Bld) [#/Vol] 264 10*3/uL Normal 130-400 [facility] Comment on above: Performed By: #### L [id number] #### [place] [address] RBC (Bld) [#/Vol] 4.32 M/MM3 Low 4.40-5.80 [facility] Comment on above: Performed By: #### L [id number] #### [place] [address] WBC (Bld) [#/Vol] 9.1 10*3/uL Normal 3.8-10.8 [facility] Comment on above: Performed By: #### L [id number] #### [place] [address] PROTHROMBIN TIMEon 9 INR Coag (PPP) [Relative time] 2.2 {INR} High 0.9-1.1 [facility] Comment on above: Result Comment: MODERATE-INTENSITY WARFARIN THERAPY: 2.0-3.0 HIGHER-INTENSITY WARFARIN THERAPY: 3.0-4.0 Performed By: #### L [id number] #### [place] [address] PT Coag (PPP) [Time] 23.5 s High 11.7-13.9 [facility] Comment on above: Performed By: #### L [id number] #### [place] [address] ACCUCHECK GLUCOSEon 12-06-19 19 Glucose [Mass/Vol] 293 mg/dL High 70-[address] [place] [address] Comment on above: Result Comment: NURS E AWARE Performed By: #### L [id number] #### [place] [address] Glucose [Mass/Vol] 131 mg/dL High 70-99 [facility] Comment on above: Result Comment: NURS E AWARE Performed By: #### L [id number] #### [place] [address] Glucose [Mass/Vol] 311 mg/dL High 70-99 [facility] Comment on above: Result Comment: NURS E AWARE Performed By: #### L [id number] #### [place] [address] Glucose [Mass/Vol] 169 mg/dL High 70-99 [facility] Comment on above: Performed By: #### L [id number] #### [place] [address] Glucose [Mass/Vol] 243 mg/dL High 70-99 [facility] Comment on above: Result Comment: NURS E AWARE Performed By: #### L [id number] #### [place] [address] BASIC METABOLIC PANELon 06-0 Anion gap [Moles/Vol] 10 mmol/L Normal 5-15 [facility] Comment on above: Performed By: #### L [id number] #### [place] [address] Calcium [Mass/Vol] 8.8 mg/dL Normal 8.5-10.5 [facility] Comment on above: Performed By: #### L [id number] #### [place] [address] Chloride [Moles/Vol] 100 mmol/L Normal 96-110 [facility] Comment on above: Performed By: #### L [id number] #### [place] [address] CO2 [Moles/Vol] 29 mmol/L Normal 19-32 [facility] Comment on above: Performed By: #### L [id number] #### [place] [address] Creatinine [Mass/Vol] 0.6 mg/dL Normal 0.5-1.4 [facility] Comment on above: Performed By: #### L [id number] #### [place] [address] GFR/1.73 sq M.predicted MDRD (S/P/Bld) [Vol rate/Area] 104 ML/MIN/1.73M2 Normal [facility] Comment on above: Result Comment: IF THE PATIENT IS , PLEASE MULTIPLY THIS BY 1.159. THIS RESULT HAS BEEN CALCULATED ASSUMING THE PATIENT IS NON- Performed By: #### L [id number] #### [place] [address] Glucose [Mass/Vol] 222 mg/dL High 70-99 [facility] Comment on above: Performed By: #### L [id number] #### [place] [address] Potassium [Moles/Vol] 4.1 mmol/L Normal 3.4-5.3 [facility] Comment on above: Performed By: #### L [id number] #### [place] [address] Sodium [Moles/Vol] 139 mmol/L Normal 135-148 [facility] Comment on above: Performed By: #### L [id number] #### [place] [address] Urea nitrogen [Mass/Vol] 14 mg/dL Normal 3-29 [facility] Comment on above: Performed By: #### L [id number] #### [place] [address] Urea nitrogen/Creatinine [Mass ratio] 25 (CALC) Normal 7.0-25.0 [facility] Comment on above: Performed By: #### L [id number] #### [place] [address] Anion gap [Moles/Vol] 10 mmol/L Normal 5-15 [facility] Comment on above: Performed By: #### L [id number] #### [place] [address] Calcium [Mass/Vol] 9.3 mg/dL Normal 8.5-10.5 [facility] Comment on above: Performed By: #### L [id number] #### [place] [address] Chloride [Moles/Vol] 98 mmol/L Normal 96-110 [facility] Comment on above: Performed By: #### L [id number] #### [place] [address] CO2 [Moles/Vol] 29 mmol/L Normal 19-32 [facility] Comment on above: Performed By: #### L [id number] #### [place] [address] Creatinine [Mass/Vol] 0.6 mg/dL Normal 0.5-1.4 [facility] Comment on above: Performed By: #### L [id number] #### [place] [address] GFR/1.73 sq M.predicted MDRD (S/P/Bld) [Vol rate/Area] 104 ML/MIN/1.73M2 Normal [facility] Comment on above: Result Comment: IF THE PATIENT IS , PLEASE MULTIPLY THIS BY 1.159. THIS RESULT HAS BEEN CALCULATED ASSUMING THE PATIENT IS NON- Performed By: #### L [id number] #### [place] [address] Glucose [Mass/Vol] 193 mg/dL High 70-99 [facility] Comment on above: Performed By: #### L [id number] #### [place] [address] Potassium [Moles/Vol] 5.0 mmol/L Normal 3.4-5.3 [facility] Comment on above: Performed By: #### L [id number] #### [place] [address] Sodium [Moles/Vol] 137 mmol/L Normal 135-148 [facility] Comment on above: Performed By: #### L [id number] #### [place] [address] Urea nitrogen [Mass/Vol] 13 mg/dL Normal 3-29 [facility] Comment on above: Performed By: #### L [id number] #### [place] [address] Urea nitrogen/Creatinine [Mass ratio] 23 (CALC) Normal 7.0-25.0 [facility] Comment on above: Performed By: #### L [id number] #### [place] [address] COMPLETE BLOOD COUNTon 12-05 Erythrocyte distribution width (RBC) [Ratio] 13.0 % Normal 9.0-15.0 [facility] Comment on above: Performed By: #### L [id number] #### [place] [address] Hematocrit (Bld) [Volume fraction] 40.7 % Low 41.0-50.0 [facility] Comment on above: Performed By: #### L [id number] #### [place] [address] Hemoglobin (Bld) [Mass/Vol] 13.6 g/dL Low 13.8-17.2 [facility] Comment on above: Performed By: #### L [id number] #### [place] [address] MCH (RBC) [Entitic mass] 31.1 pg Normal 27.0-33.0 [facility] Comment on above: Performed By: #### L [id number] #### [place] [address] MCHC (RBC) [Mass/Vol] 33.4 g/dL Normal 32.0-36.0 [facility] Comment on above: Performed By: #### L [id number] #### [place] [address] MCV (RBC) [Entitic vol] 93.3 fL Normal 80.0-100.0 [facility] Comment on above: Performed By: #### L [id number] #### [place] [address] Platelets (Bld) [#/Vol] 260 10*3/uL Normal 130-400 [facility] Comment on above: Performed By: #### L [id number] #### [place] [address] RBC (Bld) [#/Vol] 4.36 M/MM3 Low 4.40-5.80 [facility] Comment on above: Performed By: #### L [id number] #### [place] [address] WBC (Bld) [#/Vol] 8.4 10*3/uL Normal 3.8-10.8 [facility] Comment on above: Performed By: #### L [id number] #### [place] [address] COMPLETE BLOOD COUNT WITH DI FFERENTIALon 12-05-2018 ABSOLUTE BASOPHIL 0.0 K/MM3 Normal 0.0-0.3 [facility] Comment on above: Performed By: #### L [id number] #### [place] [address] ABSOLUTE SEGMENTED NEUTROPHIL 6.8 K/MM3 Normal 1.5-7.8 [facility] Comment on above: Performed By: #### L [id number] #### [place] [address] Basophils/100 WBC (Bld) 0.3 % Normal 0.0-2.0 [facility] Comment on above: Performed By: #### L [id number] #### [place] [address] Eosinophils (Bld) [#/Vol] 0.2 10*3/uL Normal 0.0-0.6 [facility] Comment on above: Performed By: #### L [id number] #### [place] [address] Eosinophils/100 WBC (Bld) 2.7 % Normal 0.0-7.0 [facility] Comment on above: Performed By: #### L [id number] #### [place] [address] Erythrocyte distribution width (RBC) [Ratio] 13.0 % Normal 9.0-15.0 [facility] Comment on above: Performed By: #### L [id number] #### [place] [address] Hematocrit (Bld) [Volume fraction] 42.7 % Normal 41.0-50.0 [facility] Comment on above: Performed By: #### L [id number] #### [place] [address] Hemoglobin (Bld) [Mass/Vol] 14.4 g/dL Normal 13.8-17.2 [facility] Comment on above: Performed By: #### L [id number] #### [place] [address] Lymphocytes (Bld) [#/Vol] 1.0 10*3/uL Normal 0.9-4.1 [facility] Comment on above: Performed By: #### L [id number] #### [place] [address] Lymphocytes/100 WBC (Bld) 11.5 % Low 14.0-51.0 [facility] Comment on above: Performed By: #### L [id number] #### [place] [address] MCH (RBC) [Entitic mass] 31.8 pg Normal 27.0-33.0 [facility] Comment on above: Performed By: #### L [id number] #### [place] [address] MCHC (RBC) [Mass/Vol] 33.8 g/dL Normal 32.0-36.0 [facility] Comment on above: Performed By: #### L [id number] #### [place] [address] MCV (RBC) [Entitic vol] 94.0 fL Normal 80.0-100.0 [facility] Comment on above: Performed By: #### L [id number] #### [place] [address] Monocytes (Bld) [#/Vol] 0.6 10*3/uL Normal 0.2-1.1 [facility] Comment on above: Performed By: #### L [id number] #### [place] [address] Monocytes/100 WBC (Bld) 7.3 % Normal 0-14.0 [facility] Comment on above: Performed By: #### L [id number] #### [place] [address] Platelets (Bld) [#/Vol] 265 10*3/uL Normal 130-400 [facility] Comment on above: Performed By: #### L [id number] #### [place] [address] RBC (Bld) [#/Vol] 4.54 M/MM3 Normal 4.40-5.80 [facility] Comment on above: Performed By: #### L [id number] #### [place] [address] Segmented neutrophils/100 WBC (Bld) 78.2 % High 40.0-76.0 [facility] Comment on above: Performed By: #### L [id number] #### [place] [address] WBC (Bld) [#/Vol] 8.7 10*3/uL Normal 3.8-10.8 [facility] Comment on above: Performed By: #### L [id number] #### [place] [address] [address] EXTREMITY LOWER RIGHT WIT HOUT CONTRASTon 12-05-2018 CT EXTREMITY LOWER RIGHT WITHOUT CONTRAST CT EXTREMITY LOWER RIGHT WITHOUT CONTRAST 12/05/2018 1:03 AM HISTORY: See Epic for more information: cellultis, Cellulitis and abscess of foot, Cellulitis and abscess of foot, Paroxysmal atrial fibrillation ( ), Malignant neoplasm of urinary bladder, unspecified site ( ), Chronic anticoagulation, Essential hypertensio COMPARISON: Radiographs of the foot 12/04/2018 FINDINGS: CT right foot and ankle performed per standard protocol with axial, sagittal, and coronal reformatted images submitted. No radiopaque foreign body identified. Strandy inflammatory changes identified throughout the subcutaneous tissues predominantly within the plantar aspect of the foot consistent with cellulitis. No fluid collection or drainable abscess identified. No radiographic evidence for osteomyelitis. IMPRESSION: CELLULITIS WITHOUT EVIDENCE FOR ABSCESS. NO FOREIGN BODY IDENTIFIED. DICTATED BY: DAREN MORTENSEN M.D. Workstation ID:[id number] cellultis Normal [facility] HEMOGLOBIN A1Con 12-05-2018 HbA1c (Bld) [Mass fraction] 177 MG/DL Normal [facility] Comment on above: Performed By: #### L [id number] #### [place] [address] HbA1c (Bld) [Mass fraction] [place], [place] Normal [facility] Comment on above: Performed By: #### L [id number] #### [place] [address] HbA1c (Bld) [Mass fraction] 7.8 % TOTAL HGB High [facility] Comment on above: Result Comment: (NOT E) The [place] [employer] recommends the following guidelines: 5.7-6.4% Indicates increased risk for diabetes (Prediabetes). > 6.5% Diagnostic of diabetes. In the absence of unequivocal hyperglycemia, results should be confirmed by repeat test. < 7% Glycemic recommendation for non adults with diabetes. [place] [employer], Standards of Medical Care in Diabetes, Volume 40; 2017 Performed By: #### L [id number] #### [place] [address] PROTHROMBIN TIMEon 9 INR Coag (PPP) [Relative time] 3.5 {INR} High 0.9-1.1 [facility] Comment on above: Result Comment: MODERATE-INTENSITY WARFARIN THERAPY: 2.0-3.0 HIGHER-INTENSITY WARFARIN THERAPY: 3.0-4.0 Performed By: #### L [id number] #### [place] [address] PT Coag (PPP) [Time] 33.7 s High 11.7-13.9 [facility] Comment on above: Performed By: #### L [id number] #### [place] [address] INR Coag (PPP) [Relative time] 3.7 {INR} High 0.9-1.1 [facility] Comment on above: Result Comment: MODERATE-INTENSITY WARFARIN THERAPY: 2.0-3.0 HIGHER-INTENSITY WARFARIN THERAPY: 3.0-4.0 Performed By: #### L [id number] #### [place] [address] PT Coag (PPP) [Time] 35.6 s High 11.7-13.9 [facility] Comment on above: Performed By: #### L [id number] #### [place] [address] XR FOOT RIGHT MINIMUM 3 VIEW Son 12-05-2018 XR FOOT RIGHT MINIMUM 3 VIEWS XR FOOT RIGHT MINIMUM 3 VIEWS 12/04/2018 10:50 PM HISTORY: FOOT SWELLING, COMPARISON: 12/03/2018 FINDINGS: The previously identified radiopaque foreign body within the medial great toe has been removed. Soft tissue swelling noted. No gas seen in the soft tissues. Osseous structures are intact. IMPRESSION: PREVIOUSLY IDENTIFIED FOREIGN BODY HAS BEEN REMOVED. DICTATED BY: DAREN MORTENSEN M.D. Workstation ID:[id number] Pt is c/o stepping on a insulin needle on Sunday and it was removed here. Pt was placed on antibiotic. Pt is now complaining of pain and swelling to the bottom of his right foot. Pt has redness going up his leg Normal [facility] XR FOOT RIGHT MINIMUM 3 VIEW Son 12-03-2018 XR FOOT RIGHT MINIMUM 3 VIEWS XR FOOT RIGHT MINIMUM 3 VIEWS 12/03/2018 2:11 AM HISTORY: FOOT PAIN, COMPARISON: None. FINDINGS: 3 views are submitted. Radiopaque foreign body identified within the soft tissues of the great toe along the lateral margin. This appears to be a needle on the lateral view. Osseous structures are intact. No acute fracture or dislocation. IMPRESSION: RADIOPAQUE FOREIGN BODY IDENTIFIED IN THE MEDIAL GREAT TOE. DICTATED BY: DAREN MORETNSEN M.D. Workstation ID:[id number] Pt arrived to ER c/o right foot pain . Pt states bottom of foot is painful and has been for a couple of days. Pt states pain with palpation. Denies injury. Normal [facility] Encounters Encounter Date Encounter Type Care Provider Facility Start: 12-07-2023 ambulatory Facility:Roni Ponce Start: 11-21-2023 End: 11-21-2023 ambulatory MIMI HERNANDEZ [facility] Start: 11-05-2023 ambulatory [facility] Start: 11-05-2023 End: 11-05-2023 ambulatory [facility] Start: 10-16-2023 End: 10-16-2023 ambulatory [facility] Start: 11-21-2022 ambulatory NARENDRANATH LAKSHMIPATHY . Facility:[facility] Start: 11-07-2022 End: 11-07-2022 ambulatory NARENDRANATH LAKSHMIPATHY . Facility:[facility] Start: 11-01-2022 End: 11-02-2022 ambulatory NARENDRANATH LAKSHMIPATHY . Facility:[facility] Start: 10-30-2022 End: 11-29-2022 ambulatory ONTIVEROS H FAWWAD Facility:[facility] Start: 10-23-2022 End: 10-24-2022 ambulatory MOHAMAD ALGHOTHANI Facility:[facility] Start: 10-17-2022 End: 10-18-2022 ambulatory NARENDRANATH LAKSHMIPATHY . Facility:[facility] Start: 10-12-2022 End: 10-13-2022 ambulatory NARENDRANATH LAKSHMIPATHY . Facility:[facility] Start: 10-02-2022 End: 10-27-2022 ambulatory ONTIVEROS H FAWWAD Facility:[facility] Start: 09-19-2022 ambulatory NARENDRANATH LAKSHMIPATHY . Facility:[facility] Start: 08-30-2022 End: 09-29-2022 ambulatory ONTIVEROS H FAWWAD Facility:[facility] Start: 08-02-2022 End: 08-30-2022 ambulatory ONTIVEROS H FAWWAD Facility:[facility] Start: 07-03-2022 End: 08-02-2022 ambulatory ONTIVEROS H FAWWAD Facility:[facility] Start: 06-01-2022 End: 07-02-2022 ambulatory ONTIVEROS H FAWWAD Facility:[facility] Start: 05-11-2022 End: 05-12-[address] PHILIP DA SILVA . Facility:[facility] Start: 05-02-2022 End: 05-31-2022 ambulatory ONTIVEROS H FAWWAD Facility:[facility] Start: 04-02-2022 End: 05-01-2022 ambulatory ONTIVEROS H FAWWAD Facility:[facility] Start: 03-02-2022 End: 04-01-2022 ambulatory ONTIVEROS H FAWWAD Facility:[facility] Start: 02-02-2022 End: 02-03-2022 ambulatory DIANA ALEX . Facility:[facility] Start: 01-30-2022 End: 03-01-2022 ambulatory ONTIVEROS H FAWWAD Facility:[facility] Start: 01-17-2022 End: 01-17-[address] PHILIP DA SILVA . Facility:[facility] Start: 2022 Encounter for preprocedural laboratory examination DR VARSHA RANDHAWA . [facility] Start: 01-12-2022 End: [address] VARSHA RANDHAWA . Facility: Start: 01-12-2022 End: 2022 Encounter for preprocedural laboratory examination DR VARSHA RANDHAWA . Facility: Start: 01-02-2022 End: 01-27-2022 ambulatory Brittany VIVIAN Facility: Start: 06-07-2021 End: 06-11-2021 ambulatory PHYSICIAN UNKNOWN Facility:[facility] Start: 05-16-2021 End: 05-17-2021 ambulatory PHYSICIAN UNKNOWN Facility:[facility] Start: 04-18-2021 End: 04-19-2021 ambulatory BENJAMIN BELEN Facility:[facility] Start: 05-24-2020 End: 05-24-2020 Chart abstracting Sreedhar Thurman Work Phone: Hematology/Oncology Start: 05-24-2020 End: 05-24-2020 Patient encounter procedure External Provider [facility] Start: 05-24-2020 Results Only External Provider Exter nal-Non[facility] Procedures Date Procedure Procedure Detail Performing Clinician Start: 05-24-2020 EXTERNAL LAB External P rovider Start: 05-24-2020 EXTERNAL PROCEDURE Exte rnal Provider Plan of Treatment Date Care Activity Detail Author Start: 03-02-2020 Influenza vaccination INFLUENZA (#1) [facility] Start: 01-06-2019 Urine microalbumin profile DTAP,TDAP ,TD (2 - Td) [facility] Start: 03-13-2017 PNEUMOVAX AGE 65 AND OVER WITH 5YR LOOKBACK (#1) PNEUMOVAX AGE 65 AND OVER WITH 5YR LOOKBACK (#1) [facility] Start: 01-14-2016 ADVANCE DIRECTIVE DISCUSSION ADVANCE DIRECTIVE DISCUSSION [facility] Start: 2001 COLORECTAL CANCER SCREENING,SEE MODIFIER COLORECTAL CANCER SCREENING,SEE MODIFIER [facility] Start: 2001 SHINGRIX VACCINE (1 of 2) BROWN GRIX VACCINE (1 of 2) [facility] Start: 01-14-1996 DIABET[facility]EN [facility] Start: 1986 LIPID SCREEN LIPID SCREEN [facility] Start: 1969 HEPATITIS C SCREENING HEPATITIS C TOBY MYERS [facility] Immunizations Immunization Date Immunization Notes Care Provider June maloney 05-20-2019 influenza, high dose seasonal, preservative-free External Provider [facility] 01-08-2019 pneumococcal conjuga te vaccine, 13 valent External Provider [facility] 04-09-2018 influenza, high dose seasonal, preservative-free External Provider [facility] 04-18-2013 influenza, injectabl e, quadrivalent, contains preservative External Provider [facility] 06-22-2012 influenza, injectabl e, quadrivalent, contains preservative External Provider [facility] 03-13-2012 influenza, injectabl e, quadrivalent, contains preservative External Provider [facility] 03-13-2012 pneumococcal polysaccharide vaccine, 23 valent External Provider [facility] 03-13-2012 pneumococcal vaccine , unspecified formulation External Provider [facility] 01-06-2009 tetanus toxoid, redu leticia diphtheria toxoid, and acellular pertussis vaccine, adsorbed External Provider [facility] Payers Date Payer Category Payer Medicare HUMANA MEDICARE HU[employer] MEDICARE PPO [id number] 2019-Present PPO [id number] 1959 Private Health Insurance [id number] 1951 Unknown [id number] 2..840.1.203795.3.579. 2.647 1950 Unknown [id number] 2.840.1.734938.3.579. 2.647 1951 Unknown [id number] 2.16.840.1.322404.3.579. 2.647 1951 Unknown [id number] 2.16.840.1.250765.3.579. 2.593 1951 Unknown [id number] 2.16.840.1.877979.3.579. 2.593 1951 Unknown [id number] 2.16.840.1.154553.3.579. 2.593 1951 Unknown [id number] 2.16.840.1.703856.3.579. 2.593 1951 Unknown [id number] 2.16.840.1.387692.3.579. 2.593 1951 Unknown [id number] 2.16.840.1.516154.3.579. 2.593 1951 Unknown [id number] 2.16.840.1.039620.3.579. 2.593 1951 Unknown [id number] 2.16.840.1.056523.3.579. 2.59 1951 Unknown [id number] 2.16.840.1.540950.3.579. 2.59 1951 Unknown [id number] 2.16.840.1.168719.3.579. 2.59 1951 Unknown [id number] 2.16.840.1.075513.3.579. 2.593 1951 Unknown [id number] 2.16.840.1.059445.3.579. 2.593 1951 Unknown [id number] 2.16.840.1.178443.3.579. 2.593 1951 Unknown [id number] 2.16.840.1.992442.3.579. 2.593 1951 Unknown [id number] 2.16.840.1.415707.3.579. 2.593 1951 Unknown [id number] 2.16.840.1.634865.3.579. 2.593 1951 Unknown [id number] 2.16.840.1.092910.3.579. 2.593 1951 Unknown [id number] 2.16.840.1.437340.3.579. 2.593 1951 Unknown [id number] 2.16.840.1.209394.3.579. 2.593 1951 Unknown [id number] 2.16.840.1.739130.3.579. 2.593 1951 Unknown [id number] 2.16.840.1.803748.3.579. 2.593 1951 Unknown [id number] 2.16.840.1.290276.3.579. 2.593 Social History Date Type Detail Facility Start: 05-24-2020 Tobacco smoking status NHIS Former s moker [facility] Start: 05-24-2020 Tobacco use and exposure Never used [facility] Sex Assigned At Not on file [facility] Exposure to SARS-CoV-2 (event) Unable to assess [facility] Clinical Notes 11-12-2020 to 11-21-2023 Note Date & Type Note Facility 11-21-2023 Note Remains stable witho ut any concerning symptoms [facility] 11-21-2023 Note Congestive heart jeromy lure due to CAD and A fib with RVR . Heart failure is unchanged. NYHA Class II. Continue current treatment regimen. Dietary sodium restriction. Encouraged daily monitoring of the patient's weight. Regular aerobic exercise. Continue current medications. Heart failure will be reassessed in 3 months. [facility] 11-21-2023 Note Coronary artery dise ase is unchanged. Continue current treatment regimen. Regular aerobic exercise. Continue current medications. Cardiac status will be reassessed in 3 months. [facility] 11-21-2023 Note Hypertension is unch anged. Continue current medications. Blood pressure will be reassessed at the next regular appointment. [facility] 11-21-2023 Note Lipid abnormalities are unchanged. Pharmacotherapy as ordered. [facility] 11-21-2023 Note [facility] Continue amiodarone, toprol and eliquis anticoagulation Denied any bleeding tendencies Currently in sinus rhythm- sinus bradycardia per ECG today [facility] 11-21-2023 Note UTP CARDIOLOGY PROGR ESS NOTE HPI: Lenard Pitts is a 73 y.o. male here for routine F/U after recent cardioversion HPI Lenard presents today with past medical history of HTN/ DM2/ Persistent/? Permanent A-fib on amiodarone, metoprolol and warfarin, CAD, hypertension, hyperlipidemia. He was recently at [facility] ER in August 2021 for strokelike symptoms which have resolved and MRI at the time was negative for any acute infarct. Denied palpitations, bleeding tendencies, chest pain, SOB, orthopnea. Denied fluid retention or weight gain. Reviewed B/P log and overall b/p controlled Review of Systems Constitutional: Negative. Respiratory: Negative. Cardiovascular: Negative. Neurological: Negative. All other systems reviewed and are negative. Previous HPI 73 y.o. year old with past medical history of HTN/ DM2/ Persistent/? Permanent A-fib on amiodarone, metoprolol and warfarin, CAD, hypertension, hyperlipidemia. He was recently at [facility] ER in August 2021 for strokelike symptoms which have resolved and MRI at the time was negative for any acute infarct. He has history of cardioversion x2 and failed therapy on sotalol. Currently asymptomatic of his A-fib and has been tolerating amiodarone Denies chest pain, SOB, palpitations, lightheadedness/syncope, and bleeding on Eliquis. No recent labs/imaging. He was seen by Kishor KHALIL and was started on amiodarone. seem to be tolerating his DOAC. Visit Vitals BP 120/74 (BP Location: Left arm, Patient Position: Sitting, BP Cuff Size: Adult) Pulse 60 Resp 12 Ht 1.702 m (5' 7 ) Wt 85.6 kg (188 lb 12.8 oz) SpO2 96% BMI 29.57 kg/m??? Smoking Status Former BSA 2.01 m??? Allergies Allergen Reactions Clindamycin Phosphate Swelling Medications: Current Outpatient Medications on File Prior to Visit Medication Sig Dispense Refill amiodarone (Pacerone) 200 mg tablet Take 1 tablet (200 mg) by mouth once daily as directed. 90 tablet 3 apixaban (Eliquis) 5 mg tablet Take 1 tablet (5 mg) by mouth in the morning and at bedtime. 180 tablet 3 aspirin 81 mg chewable tablet Chew 1 tablet every day by oral route. atorvastatin (Lipitor) 80 mg tablet Take 1 tablet every day by oral route. empagliflozin (Jardiance) 25 mg Take 25 mg by mouth in the morning. folic acid (Folvite) 1 mg tablet TAKE ONE PILL BY MOUTH ON THE DAYS NOT TAKING THE METHOTREXATE. insulin NPH and regular human (NovoLIN) 100 unit/mL (70-30) injection lisinopril 2.5 mg tablet Take 2.5 mg by mouth in the morning. metFORMIN (Glucophage) 1,000 mg tablet Take 1 tablet twice a day by oral route for 90 days. methotrexate 2.5 mg tablet TAKE 4 TABLETS BY MOUTH ONCE WEEKLY ON SUNDAY multivitamin tablet Take 1 tablet by mouth in the morning. nitroglycerin (Nitrostat) 0.4 mg SL tablet [DISCONTINUED] apixaban (Eliquis) 5 mg tablet Take 1 tablet (5 mg) by mouth in the morning and at bedtime. 60 tablet 11 empagliflozin (Jardiance) 10 mg Take 1 tablet every day by oral route for 30 days. (Patient not taking: Reported on 11/21/2023) 90 tablet 3 [DISCONTINUED] amiodarone (Pacerone) 200 mg tablet Take 1 tablet (200 mg) by mouth in the morning. 90 tablet 3 [DISCONTINUED] lisinopril 5 mg tablet TAKE 1 TABLET EVERY DAY (Patient not taking: Reported on 11/21/2023) 90 tablet 3 No current facility-administered medications on file prior to visit. Physical Exam: Constitutional: Appearance: Normal appearance. Without apparent distress HENT: Head: Normocephalic and atraumatic. Nose: Nose normal. Mouth/Throat: Mouth: Mucous membranes are moist. Eyes: Extraocular Movements: Extraocular movements intact. Conjunctiva/sclera: Conjunctivae normal. Neck: Vascular: No JVD. Cardiovascular: Rate and Rhythm: Bradycardic and regular rhythm. Pulses: Dorsalis pedis pulses are 3 on the right side and 3on the left side. Posterior tibial pulses are 3 on the right side and 3 on the left side. Heart sounds: Normal heart sounds, S1 normal and S2 normal. Pulmonary: Effort: Pulmonary effort is normal. Breath sounds: Normal breath sounds. Abdominal: General: Bowel sounds are normal. Palpations: Abdomen is soft. Musculoskeletal: General: Normal range of motion. Cervical back: Normal range of motion. Right lower leg: No edema. Left lower leg: No edema. Skin: General: Skin is warm and dry. Capillary Refill: Capillary refill takes less than 2 seconds. Neurological: General: No focal deficit present. Mental Status: he is alert and oriented to person, place, and time. Psychiatric: Mood and Affect: Mood normal. Behavior: Behavior normal. Thought Content: Thought content normal. Judgment: Judgment normal. Labs: 10/23/22 TSH elevated Liver function normal 09/30/21 CBC stable Renal function normal Chol 123, HDL 51, trig 83, LDL 55.4 Last lab values have been reviewed CV Testin11/05/23 Conclusion DIRECT CARDIOVERSION PROCEDURE NOTE Date: 11/05/2023. Type (more content not included)... [facility] 11-05-2023 Note DIRECT CARDIOVERSION PROCEDURE NOTE Date: 11/05/2023. Type of procedure: DC Cardioversion. Performed by: Aren Sparrow MD Informed consent: Signed by patient. Indication: 73 year old with past medical history of HTN/ DM2/ Persistent? Permanent A-fib on amiodarone, metoprolol and warfarin, CAD, hypertension, hyperlipidemia. He was recently at [facility] ER in August 2021 for strokelike symptoms which have resolved and MRI at the time was negative for any acute infarct. He has history of cardioversion x2 and failed therapy on sotalol. Currently asymptomatic of his A-fib and has been tolerating amiodarone Denies chest pain, SOB, palpitations, lightheadedness/syncope, and bleeding on Eliquis. No recent labs/imaging.He was seen by Kishor KHALIL and was started on amiodarone. He seems to be tolerating his DOAC. He had been on uninterrupted anticoagulation for minimum of 6 weeks. Hence, WANDY was deferred. Preparation and technique: Patient was brought into the procedure room. After an informed consent was obtained following a discussion with the patient where I explained the risk and benefit of the procedure that is not limited to skin davis, fluid in the lungs, heart attack, stroke, or even , though that is very rare. Patches were placed in anteroposterior direction and once patient was made comfortable with Versed 2mg and Fentanyl 25mcg. Following sedation, the patient underwent synchronized cardioversion using 360J which converted to sinus rhythm. Post procedure, the patient was stable. No complications noted. Plan: Continue anticoagulation and consider ablation. Aren Sparrow MD Cardiac Electrophysiology [facility] 11-05-2023 Note Patient: Lenard Srinivasan er Procedure Information Date/Time: 11/05/23829 Procedure: Cardioversion Location: [facility] / [facility] (Cath) Providers: Aren Sparrow MD Clinical information reviewed: Allergies Meds Physical Exam Airway Mallampati: II TM distance: >3 FB Neck ROM: full Cardiovascular Dental Pulmonary Abdominal Anesthesia Plan ASA 2 CSE Anesthetic plan and risks discussed with patient. Use of blood products discussed with patient who. Additional Equipment Requests [facility] 10-16-2023 Note Patient here for 1 y ear follow up CAD, chronic systolic heart failure, and PAF. Denies chest pain, SOB, palpitations, lightheadedness/syncope, and bleeding on Eliquis. No recent labs/imaging. MD Electrophysiology Consult Note Reason for visit: afib HPI: Lenard Pitts is a 73 y.o. year old with past medical history of HTN/ DM2/ Persistent/? Permanent A-fib on amiodarone, metoprolol and warfarin, CAD, hypertension, hyperlipidemia. He was recently at [facility] ER in August 2021 for strokelike symptoms which have resolved and MRI at the time was negative for any acute infarct. He has history of cardioversion x2 and failed therapy on sotalol. Currently asymptomatic of his A-fib and has been tolerating amiodarone Denies chest pain, SOB, palpitations, lightheadedness/syncope, and bleeding on Eliquis. No recent labs/imaging. He was seen by Kishor KHALIL and was started on amiodarone. seem to be tolerating his DOAC. PMH: No past medical history on file. PSH: No past surgical history on file. SH: Social Determinants of Health Tobacco Use: Medium Risk (11/21/2022) Patient History Smoking Tobacco Use: Former Smokeless Tobacco Use: Never Passive Exposure: Not on file Alcohol Use: Not on file Financial Resource Strain: Not on file Food Insecurity: Not on file Transportation Needs: Not on file Physical Activity: Not on file Stress: Not on file Social Connections: Not on file Intimate Partner Violence: Unknown (08/23/2023) MD Safety & Environment Fear of Current or Ex-Partner: Not on file Emotionally Abused: Not on file Physically Abused: Not on file Sexually Abused: Not on file Physically or Sexually Abused: Not on file Depression: Not on file Housing Stability: Not on file Utilities: Not on file Allergies: Allergies Allergen Reactions Clindamycin Phosphate Swelling Weight: 86.2kg Visit Vitals BP 132/76 (BP Location: Right arm, Patient Position: Sitting) Pulse 68 Ht 1.702 m (5' 7 ) Wt 86.2 kg (190 lb) SpO2 98% BMI 29.76 kg/m??? Smoking Status Former BSA 2.02 m??? Meds: Current Outpatient Medications on File Prior to Visit Medication Sig Dispense Refill amiodarone (Pacerone) 200 mg tablet Take 1 tablet (200 mg) by mouth once daily as directed. 90 tablet 3 apixaban (Eliquis) 5 mg tablet Take 1 tablet (5 mg) by mouth in the morning and at bedtime. 60 tablet 11 aspirin 81 mg chewable tablet Chew 1 tablet every day by oral route. atorvastatin (Lipitor) 80 mg tablet Take 1 tablet every day by oral route. empagliflozin (Jardiance) 25 mg Take 25 mg by mouth in the morning. folic acid (Folvite) 1 mg tablet TAKE ONE PILL BY MOUTH ON THE DAYS NOT TAKING THE METHOTREXATE. insulin NPH and regular human (NovoLIN) 100 unit/mL (70-30) injection lisinopril 5 mg tablet TAKE 1 TABLET EVERY DAY (Patient taking differently: Take 2.5 mg by mouth in the morning.) 90 tablet 3 metFORMIN (Glucophage) 1,000 mg tablet Take 1 tablet twice a day by oral route for 90 days. methotrexate 2.5 mg tablet TAKE 4 TABLETS BY MOUTH ONCE WEEKLY ON SUNDAY metoprolol succinate XL (Toprol-XL) 25 mg 24 hr tablet TAKE 1 TABLET ONE TIME DAILY DIRECTED . DO NOT CRUSH OR CHEW 90 tablet 3 multivitamin tablet Take 1 tablet by mouth in the morning. nitroglycerin (Nitrostat) 0.4 mg SL tablet amiodarone (Pacerone) 200 mg tablet Take 1 tablet (200 mg) by mouth in the morning. 90 tablet 3 apixaban (Eliquis) 5 mg tablet Take 1 tablet (5 mg) by mouth in the morning and at bedtime. 180 tablet 3 empagliflozin (Jardiance) 10 mg Take 1 tablet every day by oral route for 30 days. (Patient not taking: Reported on 10/16/2023) 90 tablet 3 warfarin (Coumadin) 5 mg tablet Take by mouth. No current facility-administered medications on file prior to visit. ROS: Review of Systems HENT: Positive for hearing loss. Musculoskeletal: Positive for back pain and joint pain. All other systems reviewed and are negative. Physical Exam: Constitutional General Appearance: well-nourished, well-developed, appears stated age Level of Distress: comfortable Psychiatric Mental Status: alert, normal affect Orientation: oriented to time, place, and person Insight: good judgement Eyes Lids and Conjunctivae: non-injected, no xanthelasma ENMT Ears: no lesions on external ear Nose: no lesions on external nose Oropharynx: no cyanosis, no pallor Neck Neck: supple, trachea midline Carotid Arteries: bilateral normal upstroke, no bruits Jugular Veins: normal jugular venous pressure Thyroid: not enlarged Lungs Respiratory Effort: unlabored Chest Exam: normal curvature, no thoracic deformity Auscultation: clear, no wheezing, no rales, no rhonchi Cardiovascular Rate And Rhythm: regular Heart Sounds: normal S1, normal s2, no gallop Systolic Murmur: not heard Diastolic Murmur: not heard Extremities: no cyanosis, no edema, no peripheral signs of emboli Peripheral Pulses Radial Pulse: normal (more content not included)... [facility] 10-12-2022 Note CONSULTATION CONSULTATION DATE: 10/12/2022 TO: Philip Da Silva M.D. CHIEF COMPLAINT: Includes severe left lower extremity pain, left lower back pain. HISTORY: Overall rates the pain as 5-7/10 pain, sharp in character, increased with activities such as standing, walking and performing transitioning maneuvers. He feels most comfortable in the semi-recumbent position. Denies any change in bowel and bladder habits. He does complain of some mild tingling of his left lower extremity with mild weakness. He reports that he has been quite stable since his last epidural injection, which was on 01/17/2022. He reports the pain was improved by 100% until approximately eight weeks ago, when he had gradually constant pain almost back to his baseline. Since that time, he has been using Aleve. He has undergone activity modification. He was enrolled in physical therapy one year ago, and he continues to be compliant with the home exercise program. Despite these changes, he still reports progression of his pain, where it altered his quality of life, level of functioning and at times his sleep pattern. EXAM: Notable for the patient having hypoesthesia along the left L4 dermatome, weakness of his left anterior tibialis, depressed left patella reflex and a straight leg raise positive at approximately 90 degrees. I could not appreciate any signs consistent with myelopathy involving his lower extremities. He had moderate myofascial spasm of his lumbar paravertebral muscles occurring bilaterally. IMPRESSION: Patient has chronic pain secondary to left L4 radiculopathy. RECOMMENDATIONS: I have recommended lumbar spine films, lumbar MRI. I have placed him on Zonegran 50 mg at h.s. and to proceed with an L4-5 lumbar epidural steroid injection under fluoroscopic guidance. His CYNTHIA was 15 on today's visit. As part of providing excellent, safe, comprehensive care, the following was completed at our patient's visit: 1. A medication reconciliation and review to ensure accurate knowledge of current/active medications, including asking our patients to inform us about any [id number] medications or herbal remedies/nutritional supplements/alternative remedies. 2. A review to specifically ensure our patients have had annual screening for: elevated body mass index (BMI, see intake chart for exact total), tobacco use, screening for depression, and screening for unhealthy alcohol use. When screening is concerning, patients are provided with education and the specific recommendation to discuss the concerning health issue and treatment options with their primary care provider. [facility] 05-11-2022 Note CONSULTATION CONSULTATION DATE: 05/11/2022 HISTORY OF PRESENT ILLNESS: This is a pleasant, 72-year-old gentleman returning to the Pain Clinic for a three month follow up for his lumbar radiculitis. He reports to the clinic today with no pain. He feels overall he has been doing well and his last procedure was a lumbar epidural steroid injection in December of this year. He denies any new vasomotor weakness, numbness or tingling. He is currently being followed up with his PCP for elevated blood pressure. Current medications include Coumadin, baby aspirin and ibuprofen as needed. Patient's REVIEW OF SYSTEMS / PAST MEDICAL HISTORY / ALLERGIES and IMAGES have been reviewed and they are noted on the chart. PHYSICAL EXAM: VITAL SIGNS: Blood pressure is 163/104. Heart rate is 95. Temperature is 97.7. He is 5'7 , weighs 95 kg. GENERAL IMPRESSION: Pleasant, appropriate, no acute distress. FOCUSED EXAM - BACK: Range of motion is functional in lateral rotation and flexion/extension. No reproduction of spinal axial pain and paravertebral muscles are non-spasmodic. Betsy's point non-tender with negative FABERs and compression test. MUSCULOSKELETAL: Slight muscle atrophy noted to bilateral lower extremities, right greater than left. Anterior tibialis and extensor digitorum longus slight weakness to the right lower extremity. NEUROLOGICAL: Radicular sensory is intact. Negative polyneuropathy. Reflexes are +1 bilaterally. DIAGNOSIS: Lumbar radiculitis and chronic lower back pain. PLAN: Overall, the patient is doing greater in regards to chronic pain. He does have a pending appointment later today with his PCP, in regards to his blood pressure. Patient is to follow up with us on a p.r.n. basis and may call us at any time. [facility] 02-02-2022 Note CONSULTATION CONSULTATION DATE: 02/02/2022 This is a very pleasant 72-year-old gentleman returning to the clinic status post lumbar epidural steroid injection completed on 01/17/2021 that afforded him 100% relief and is ongoing. The patient states since the injection, he no longer needed his cane and he feels overall stronger, in his legs. Prior to that he was using a cane and was slightly unstable in his gait. Medications include Coumadin, multivitamin and baby aspirin. Occasionally he will use an Advil. The patient is very happy with his outcome at this time. REVIEW OF SYSTEMS, PAST MEDICAL HISTORY, ALLERGIES AND IMAGES: Have been reviewed and noted in the chart. PHYSICAL EXAM: VITAL SIGNS: Blood pressure 113/77, heart rate is 63, temperature is 97.7. Height is 5'7 , weighs 92.4 kg. GENERAL APPEARANCE: Pleasant, appropriate and in no acute distress. FOCUSED EXAM: BACK: Range of motion is functional, lateral rotation and flexion extension. No reproduction of spinoaxial pain to compression along the posterior elements of the lumbar facets. Paravertebral muscles are non-spasmodic. Betsy's point is nontender, negative Keerthi's and compression test. MUSCULOSKELETAL: Motor is intact, 4 out of 5 bilaterally. Walks with a steady gait without an assistive device. NEUROLOGICAL: Radicular sensory is intact. Negative polyneuropathy. DIAGNOSIS: Lumbar radiculitis, lumbar degenerative disk disease, lumbar spondylosis. PLAN: Overall the patient is doing great. I did discuss with the patient regarding a possible repeat lumbar epidural steroid injection in the Fall, if needed. We may consider if back pain returns, medial branch block to his upper lumbar region. At this time, the patient wishes to hold off on any further procedures until pain returns. Nutrition and vitamin importance was stressed. The patient agrees to the plan of care and will see him in three months' time unless otherwise indicated. [facility] 11-23-2020 Note HNO ID: [id number] Author: Rula Nobles APRN.DOPE SPRAYER Service: ? Author Type: Nurse Practitioner Type: Progress Notes Filed: 11/23/2020 9:19 PM Note Text: No show [facility] 11-23-2020 Note Patient Outreach (UR OLMN) ---- LENARD PITTS ([id number]) 1950 M Date Time Provider Department 11/23/20 WEIGHT, COLE ZHU During your visit today, we recorded the following information about you: Allergies As of Date: 11/23/2020 Noted Allergy Reaction CLINDAMYCIN PHOSPHATE 12/12/2018 7 - Swelling Date Reviewed: 11/12/2020 Reviewed by: Praveena Pritchard MA - Fully Assessed Visit Diagnosis:Screening for genitourinary condition [Z13.89] Order(s):URINALYSIS, DIPSTICK ONLY [SQUA] Order #: [id number] Prescriptions as of 11/23/2020 Sig: FOLIC ACID 1 MG TABLET Take 1 mg by mouth. METHOTREXATE SODIUM 2.5 MG TA* TAKE 4 TABLEST BY MOUTH ONCE * ONE-A-DAY MEN'S MULTIVITAMIN * Take by mouth. NOVOLIN 70-30 FLEXPEN U-100 I* Inject subcutaneously twice d* MULTI-VITAMIN ORAL Take 1 tablet by mouth. WARFARIN 5 MG TABLET Take by mouth. ATORVASTATIN 80 MG TABLET Take by mouth. GLIPIZIDE 5 MG TABLET Take by mouth. LISINOPRIL 2.5 MG TABLET Take by mouth. METFORMIN 1,000 MG TABLET Take by mouth. SOTALOL 80 MG TABLET Take 80 mg by mouth. Problem List As Of Date 11/23/2020 Noted Resolved snf current use of anticoagulant [Z79.01] 06/01/2020 Atrial fibrillation (HCC) [I48.91] 06/01/2020 Encounter Status:Closed by [employer]atch[employer]USER on 11/26/[address] [facility] 11-12-2020 Note HNO ID: [id number] Author: Sreedhar Thurman MD Service: ? Author Type: Physician Type: Progress Notes Filed: 11/12/2020 9:25 AM Note Text: PATIENT NAME: Lenard Pitts CLINIC NO.: [id number] ATTENDING PHYSICIAN: Sreedhar Thurman MD DATE OF SERVICE: November 12, [address] Sreedhar Thurman [address] [place] [address] here is an update on a follow up visit on male Lenard Pitts at the clinic 11/12/2020 Diagnosis: 1. Bladder cancer s/p TURBT and BCG ( Last BCG 2014) Treatment History: HPI: Lenard Pitts is a 70 year old year old male here for follow up. Doing well and has not seen urology yet. Denies any urinary symptoms. PAST MEDICAL HISTORY Diagnosis Date - Atrial fibrillation (HCC) - Bladder cancer (HCC) - Diabetes mellitus type 2 (HCC) - Hyperlipidemia - Hypertension - Psoriasis Social History Tobacco Use - Smoking status: Former Smoker Quit date: 1983 Years since quittin.3 - Smokeless tobacco: Never Used Vaping Use - Vaping Use: Never used Substance Use Topics - Alcohol use: Not on file - Drug use: Not on file FAMILY HISTORY Problem Relation Age of Onset - Heart disease Mother - Diabetes Father Past medical, social and family history reviewed without any changes. REVIEW OF SYSTEMS GENERAL: No weight loss, malaise or fevers. No night sweats. HEENT: Negative for headaches, No changes in hearing or vision, no nose bleeds or other nasal problems. RESPIRATORY: Negative for cough, wheezing and shortness of breath CARDIOVASCULAR: Negative for chest pain, leg swelling and palpitations GI: Negative for abdominal discomfort, blood in stools or black stools and change in bowel habits : Negative for dysuria, frequency and incontinence MUSCULOSKELETAL: Negative for joint pain or swelling, back pain, and muscle pain. SKIN: Negative for lesions, rash, and itching. HEMATOLOGY/LYMPHOLOGY Negative for prolonged bleeding, bruising easily, and swollen nodes. NEURO: Negative for numbness or tingling of hands/feet. No weakness. PHYSICAL EXAMINATION: BP 476/92 Pulse 70 Temp (Src) 97.3 (Temporal) Resp 16 Ht 5' 7.008 (1.70m) Wt 207 lb 12.8 oz (94.3kg) SpO2 97% BMI 32.54 kg/(m2). Wt 94.3 kg (207 lb 12.8 oz) BMI 32.54 kg/m2 Last 3 Encounter Wt Readings: Date: Wt: 11/12/2020 94.3 kg (207 lb 12.8 oz) 05/25/2020 96.2 kg (212 lb) General appearance:ECOG PERFORMANCE STATUS: 0- Fully active, able to carry on all pre-disease performance w/o restriction. Patient in NAD. Skin: Skin color, texture, turgor normal. No rashes or lesions. Eyes: Anicteric sclera. Pupils are equally round and reactive to light. Extraocular movements are intact. Lymph Nodes: No cervical, supraclavicular, axillary or inguinal adenopathy. Oropharynx: Lips, mucosa, and tongue normal. Back: No pain to percussion. Negative SLR test Lungs clear to auscultation, No wheezing or rhonchi Heart: RRR without murmur, gallop, or rubs. Abdomen soft, non-tender. No masses, organomegaly Extremities: No deformities. No edema Neuro: Gait and speech normal. Reflexes normal and symmetric. Muscular strength intact. Sensation grossly intact. Rectal: Deferred : Deferred LABS: No results found for: GLUC, K, NA, CHLOR, CO2, CREAT, BUN, ANION, CA, TPROT, ALB, TBILI, ALKPHOS, AST, ALT No results found for: WBC, RBC, HB, HCT, MCV, MCH, MCHC, RDWCV, PLT, MPV, MPV, NEUT, ABSNEUT, LYMPHP, ABSLYMPH, MONOP, ABSMONO, EOSINP, ABSEOSIN, BASOP, ABSBASO PATH: Imaging: Assessment and Plan: Lenard Pitts is a 70 year old year old male here for follow up. 1. Bladder cancer- Arrange for referral for surveillance 2. Afib- FU anticoag clinic for coumadin 3. See us as needed Thank you for the kind referral. If there are any questions and or concerns please do not hesitate to contact me at [phone]. Sreedhar Thurman MD Hematology/Medical Oncology [facility] 15 I spent a total of 15 minutes on the date of the service which included preparing to see the patient, [id number] patient care, completing clinical documentation, obtaining and/or reviewing separately obtained history and ordering medications, tests, or procedures. Medical Decision Making CC: [facility] Summary Purpose Family History No Family History Records FoundNo Family History Records FoundNo Family History Records FoundNo Family History Records FoundNo Family History Records FoundNo Family History Records Found Advance Directives No Advanced Directives Records FoundNo Advanced Directives Records FoundNo Advanced Directives Records FoundNo Advanced Directives Records FoundNo Advanced Directives Records FoundNo Advanced Directives Records Found Additional Source Comments (unrecognized sect ion and content) No Status Records FoundNo Status Records FoundNo Status Records FoundNo Status Records FoundNo Status Records FoundNo Status Records Found INFORMATION SOURCE (unrecogn ized section and content) DATE CREATED AUTHOR 08/01/2019 [facility] DATE CREATED AUTHOR AUTHOR'S ORGANIZ ATION 07/05/2021 [facility] DATE CREATED AUTHOR AUTHOR'S ORGANIZ ATION 07/26/[address] [facility] DATE CREATED AUTHOR AUTHOR'S ORGANIZ ATION 12/10/2022 [facility] DATE CREATED AUTHOR AUTHOR'S ORGANIZ ATION 11/23/2023 [facility] DATE CREATED AUTHOR AUTHOR'S ORGANIZ ATION 12/10/2023 [facility] Source Comments (unrecognize d section and content) In the event this informatio n is protected by the Federal Confidentiality of Alcohol and Drug Abuse Patient Records regulations: The Federal rules restrict any use of the information to criminally investigate or prosecute any alcohol or drug abuse patient.[facility] the event this information is protected by the Federal Confidentiality of Alcohol and Drug Abuse Patient Records regulations: The Federal rules restrict any use of the information to criminally investigate or prosecute any alcohol or drug abuse patient.[facility] the event this information is protected by the Federal Confidentiality of Alcohol and Drug Abuse Patient Records regulations: The Federal rules restrict any use of the information to criminally investigate or prosecute any alcohol or drug abuse patient.[facility] the event this information is protected by the Federal Confidentiality of Alcohol and Drug Abuse Patient Records regulations: The Federal rules restrict any use of the information to criminally investigate or prosecute any alcohol or drug abuse patient.[facility] FOR RECORDS PERTAINING TO PATIENTS WHO ARE OR HAVE BEEN ENROLLED IN A CHEMICAL DEPENDENCY/SUBSTANCEABUSE PROGRAM, SOME INFORMATION MAY BE OMITTED. This clinical summary was aggregated from multiple sources. Caution should be exercised in using it in the provision of clinical care. This summary normalizes information from multiple sources, and as a consequence, information in this document may materially change the coding, format and clinical context of patient data. In addition, data may be omitted in some cases. CLINICAL DECISIONS SHOULD BE BASED ON THE PRIMARY CLINICAL RECORDS. [facility] provides no warranty or guarantee of the accuracy or completeness of information in this document.
[2023-12-11 08:01] LABS: Basophils Percent Auto 0.4 % (0.2-2.0); Eosinophils Absolute Auto 0.1 10^3/uL (0.0-0.7); Hematocrit 44.1 % (42.0-54.0); Hemoglobin 14.3 g/dL (14.0-18.0); Immature Granulocytes Abs Auto 0.03 10^3/uL (0.00-0.03); Immature Granulocytes Pct Auto 0.4 % (0.0-0.5); Lymphocytes Absolute Auto 1.4 10^3/uL (1.2-3.8); Lymphocytes Percent Auto 19.7 % (20.5-60.0); Mean Corpuscular HGB Conc 32.4 g/dL (29.9-35.2); Mean Corpuscular Hemoglobin 32.9 pg (25.9-34.0); Mean Corpuscular Volume 101.4 fL (80.0-94.0); Mean Platelet Volume 9.5 fL (9.5-13.5); Monocytes Absolute Auto 0.5 10^3/uL (0.3-0.8); Monocytes Percent Auto 6.8 % (1.7-12.0); Neutrophils Percent Auto 71.7 % (43.0-75.0); Platelet Count 327 10^3/uL (150-450); Red Blood Count 4.35 10^6/uL (4.70-6.10); Red Cell Distribution Width 13.2 % (11.0-15.0); White Blood Count 6.9 10^3/uL (4.0-11.0)
[2023-12-11 10:01] LABS: Alanine Aminotransferase 19 U/L (16-63); Albumin Globulin Ratio 1.1; Albumin Level 3.9 g/dL (3.4-5.0); Alkaline Phosphatase 72 U/L (46-116); Anion Gap 12.2; Aspartate Amino Transferase 26 U/L (15-37); Bilirubin Total 1.1 mg/dL (0.2-1.0); Calcium 9.1 mg/dL (8.5-10.1); Carbon Dioxide 30.5 mmol/L (21.0-32.0); Chloride 102 mmol/L (98-107); Chol HDL Ratio 1.9; Cholesterol 136 mg/dL (<=200); Estimated GFR (African America >60 (>=60); Estimated GFR (Non-African Ame >60 (>=60); Free T3 2.23 pg/mL (2.18-3.98); Globulin 3.7 g/dL; Glucose 200 mg/dL (74-106); HDL Cholesterol 73 mg/dL (40-60); Potassium 4.7 mmol/L (3.5-5.1); Sodium 140 mmol/L (136-145); Thyroid Stimulating Hormone 11.557 uIU/mL (0.358-3.740); Total Protein 7.6 g/dL (6.4-8.2); Triglycerides 64 mg/dL (<=150); VLDL CHOLESTEROL 12.8 mg/dL
[2023-12-11 11:54] LABS: Estimated Average Glucose 180 mg/dL; Glycohemoglobin A1C 7.9 % (4.5-6.2)
[2023-12-12 10:13] LABS: Insulin 16.2 uIU/mL (2.6-24.9)
== END 2023-12-11 07:35 | disposition home or self-care (01) ==
LOC: LAB 07:36
PROVIDERS: PCP Nurse Practitioner Family; Visit Provider Nurse Practitioner Family
DX: I10 Essential (primary) hypertension (principal)
CPT/HCPCS: 36415; 80053; 80061; 83036; 83525; 84436; 84443; 84481; 85025

== ENCOUNTER 2025-01-30 13:04 | Outpatient (OUT) | payer MEDICARE, SELFPAY ==
--- NOTE | 2025-01-30 13:08 | CA_ITS ---
Patient Name: RADHA PETERS MR#: [id number] : 1950 Exam Date: 01/30/2025 Ordering Doctor: BENJAMIN GLOVER CNP ECHOCARDIOGRAM REPORT PROCEDURE: CA ECHO DOPPLER COMPLETE INDICATIONS: Heart failure with reduced ejection fraction COMPARISON: None. DESCRIPTION: COMPLETE ECHOCARDIOGRAM Real-time transthoracic echocardiography with 2D, M-mode, spectral and color flow Doppler performed. QUALITY: Technical quality was good. LEFT VENTRICLE: Mild dilatation. Moderate concentric left ventricular hypertrophy. Global left ventricular systolic function is normal. LV EF: Estimated left ventricular ejection fraction is 60%. DIASTOLIC: Grade II diastolic dysfunction. ATRIAL SEPTUM: LEFT ATRIUM: Severe dilatation. RIGHT ATRIUM: Moderate dilatation. RIGHT VENTRICLE: Mild dilatation. Normal right ventricular systolic function. TRICUSPID VALVE: Normal mobility and thickness. No stenosis with mild regurgitation. Mild pulmonary hypertension. RVSP 35 mmHg. MITRAL VALVE: Mildly thickened with normal mobility. No evidence of mitral valve stenosis. Mild mitral annular calcification. Mild mitral regurgitation. AORTIC VALVE: Normal trileaflet appearance. Mildly calcified aortic valve. Calcified nodule of Arantius is seen in the left coronary cusp. Normal leaflet mobility. No evidence of aortic valve stenosis. Mild aortic regurgitation. AORTIC ROOT: Normal diameter and appearance, measuring 3.6 cm. The ascending aorta is borderline dilated measuring 3.7 cm. PULMONIC VALVE: Normal thickness and mobility. No stenosis. Trivial regurgitation. PERICARDIUM: No evidence of pericardial effusion. IVC: Collapses with inspirations. Normal size. PLEURA: CONCLUSION: 1. Moderate concentric left ventricular hypertrophy with normal systolic function. Estimated LVEF is 60%. 2. Mildly dilated right ventricle with normal systolic function. 3. Moderate to severe biatrial dilatation. 4. Grade 2 diastolic dysfunction. 5. Mild aortic, mitral and tricuspid regurgitation. 6. Mildly elevated right-sided pressures. Adult Echocardiography Procedure Report Left Ventricle LVEDD (3.7 - 5.6 cm): 5.76 cm LVESD (2.2 - 4.0 cm): 4.15 cm LVIVS thickness (0.6 - 1.2 cm): 1.49 cm LVPW thickness (0.5 - 1.0 cm): 1.53 cm e': 0.07 m/s E - e': 12.37 LVOT Max Gradient: 1.79 mm[Hg], 1.98 mm[Hg] LVOT Area (cm2): 0.69 m/s Peak Velocity (LVOT): 0.67 m/s, 0.70 m/s Mean Velocity (LVOT): 0.48 m/s LVOT Diameter 2.36 cm Left Ventricular Ejection Fraction: 60 % Left Atrium LA Volume Index (2D A2C): 113.44 ml/m2 Left Atrium Systolic Dimension: 6.25 cm Mitral Valve MV E to A Ratio: 2.17 Mitral Valve A-Wave Peak Velocity: 0.43 m/s Mitral Valve E-Wave Peak Velocity: 0.93 m/s Right Ventricle RV Internal Diastolic Dimension: 4.41 cm Aorta AO Root Diam: 3.64 cm Ascending Ao Diam: 3.67 cm Aortic Valve AoV Area (Peak Brennan): 1.60 cm2, 1.56 cm2 AoV Area (VTI): 1.75 cm2, 1.70 cm2 Deceleration [place]: 1.37 m/s2 Pressure Half-Time: 812.49 ms Peak Velocity(Antegrade Flow): 1.87 m/s Peak Gradient(Antegrade Flow): 14.01 mm[Hg] Mean Velocity(Antegrade Flow): 1.13 m/s Mean Gradient(Antegrade Flow): 6.34 mm[Hg] Velocity Time Integral: 38.71 cm Tricuspid Valve Peak Velocity (Regurgitant Flow): 2.54 m/s, 2.82 m/s, 2.84 m/s Pulmonic Valve Mean Gradient: 1.57 mm[Hg], 1.70 mm[Hg] Mean Velocity: 0.60 m/s, 0.60 m/s Peak Velocity: 0.79 m/s Peak Gradient: 2.20 mm[Hg], 2.81 mm[Hg] Right Atrium Right Atrium Systolic Pressure: 81.25 ml, 81.25 ml Dictated by: Chay Sánchze M.D. on 01/30/2025 at 18:07 Approved by: Chay Sánchez M.D. on 01/30/2025 at 18:12
--- OUTSIDE RECORDS SUMMARY | 2025-01-30 13:14 | XMS_ITS | CCD ---
Author Organization [facility] Care Team Providers Care Paralegal Instructor Name Role Phone Miladis Pereira Primary Care Provider [phone] UNKNOWN, PHYSICIAN Primary Care Unavailable SELF, REFERRED [...] HOY ., DR PALACIOS Primary Care Unavailable FAWWABlanquita, ONTIVEROS H Attending Unavailable SYDNEE ., DR VARSHA Gonzalez Admitting Unavailable MILADIS PEREIRA Primary Care Unavailable RANDHAWA ., DR VARSHA Gonzalez Attending Unavailable RANDHAWA ., DR VARSHA Gonzalez Consulting Unavailable LAKSHMIPATHY ., CATIA Consulting Leena vailable LAKSHMIPATHY ., GREGENDFRANKY Attending Leena vailable LAKSHMIPATHY ., ROSAATH Admitting Leena vailable MILADIS PEREIRA Primary Care Unavailable FAWWAD, ONTIVEROS H Admitting Unavailable HOY ., DR PALACIOS Primary Care Unavailable FAWWAD, ONTIVEROS H Attending Unavailable FAWWAD, ONTIVEROS H Admitting Unavailable FAWWABlanquita, ONTIVEROS H Attending Unavailable HOY ., DR [...] Attending Unavailable FAWWAD, ONTIVEROS H Admitting Unavailable [facility] Primary Care Unavailable FAWWAD, ONTIVEROS H Admitting Unavailable HOY ., DR PALACIOS Primary Care Unavailable FAWWAD, ONTIVEROS H Attending Unavailable LAKSHMIPATHY ., NARENDRANATH Attending Leena vailable LAKSHMIPATHY ., NARENDRANATH Admitting Leena vailable HALKER ., ROSLYN Consulting Unavailable [facility] Primary Care Unavailable ALEX .DIANA Consulting Unavailable RANDHAWA ., DR VARSHA Gonzalez Admitting Unavailable RANDHAWA ., DR VARSHA Gonzalez Attending Unavailable HOY ., DR PALACIOS Primary Care Unavailable LAKSHMIPATHY ., NARENDRANATH Attending Leena vailable LAKSHMIPATHY ., NARENDRANATH Admitting Leena vailable CÉSAR IBANEZ Consulting Unavaila ble [facility], [facility] Primary Care Unavailable LAKSHMIPATHY ., NARENDTINYATH Consulting Leena vailable LAKSHMIPATHY ., NARENDRANATH Admitting Leena vailable LAKSHMIPATHY ., CATIA Attending Leena vailable RAFFAELE ., DR PALACIOS Primary Care Unavailable RICHARD, DR MAKENNA Lopez Consulting Unavailable LAKSHMIPATHY ., CATIA Consulting Leena vailable ALGHOTHANI, MOHAMAD Attending Unavailable RICHARD, DR MAKENNA Lopez Consulting Unavailable ALGHOTHANI, MOHAMAD Admitting Unavailable MILADIS PEREIRA Primary Care Unavailable MARISEL, AGD Consulting Unavailable RAFFAELE ., DR PALACIOS Consulting Unavailable SYDNEE ., DR VARSHA Gonzalez Admitting Unavailable RAFFAELE ., DR PALACIOS Primary Care Unavailable SYDNEE ., DR VARSHA Gonzalez Attending Unavailable ISAI .DIANA Consulting Unavailable VIVIAN, H Admitting Unavailable SHAIKH PARK H Attending Unavailable MILADIS PEREIRA Primary Care Unavailable MILADIS PEREIRA Primary Care Physician Abelardo MATTA Attending Unavailable Abelardo MATTA Attending Unavailable MILADIS PEREIRA Referring Unavailable MILADIS PEREIRA S Primary Care Unavailable AREN AHUMADA Attending Unavailable MILADIS PEREIRA Primary Care Unavailable RANDALL, MILADIS S Primary Care Unavailable SWATI SUAZO Attending Unavailable AREN SPARROW Attending Unavailable AREN SPARROW Admitting Unavailable AREN SPARROW Referring Unavailable AREN SPARROW Referring Unavailable AREN SPARROW Attending Unavailable AREN SPARROW Attending Unavailable BENJAMIN PATEL Attending Unavailable Allergies Allergy Classification Reported Allergen(s) Allergy Type Date of Onset Reaction(s) Facility (2 sources) Clindamycin; Translations: [CLINDAMYCIN PHOSPHATE] Drug Allergy 9 Swelling [facility] (1 source) No Known Medication Allergies; Translations: [No Known Medication Allergies] Propensity to adverse reactions (disorder) [facility] [place] Repository Medications Current Medications Medication Drug Class(es) Dates Sig (Normalized) Sig (Original) amiodarone hydrochloride 200 mg oral tablet (2 sources) Antiarrhythmic Start: 05-19-2024 take 1 tablet by mouth once daily amiodarone 200 mg Tab 200 mg = 1 tab(s), Oral, Daily, Refills(s) 0 Start Date: 05/19/24 Status: Ordered apixaban 5 mg oral tablet (2 sources) Factor Xa Inhibitor Start: 05-19-2024 take 1 tablet by mouth twice daily Eliquis 5 mg oral tablet 5 mg = 1 tab(s), Oral, BID, Refills(s) 0 Start Date: 05/19/24 Status: Ordered aspirin 81 mg chewable tablet (2 sources) Platelet Aggregation Inhibitor, Nonsteroidal Anti-inflammatory Drug Start: 05-19-2024 aspirin 81 mg Chew Tab 81 mg = 1 tab(s), Chewed, Daily, Refills(s) 0 Start Date: 05/19/24 Status: Ordered atorvastatin 80 mg oral tablet (3 sources) HMG-CoA Reductase Inhibitor Start: 05-19-2024 take 1 tablet by mouth once daily atorvastatin 80 mg Tab 80 mg = 1 tab(s), Oral, Daily, Refills(s) 0 Start Date: 05/19/24 Status: Ordered Start: 02-23-2020 atorvastatin ( LIPITOR) 80 mg tablet Take by mouth. 0 02/23/2020 Active Comment on above: Take by mouth. empagliflozin 25 mg oral tablet (2 sources) Sodium-Glucose Cotransporter 2 Inhibitor Start: 4 take 1 tablet by mouth once daily in the morning Jardiance 25 mg oral tablet 25 mg = 1 tab(s), Oral, qAM, Refills(s) 0 Start Date: 05/19/24 Status: Ordered folic acid 1 mg oral tablet (2 sources) Start: 4 take 1 tablet by mouth once daily folic acid 1 mg Tab 1 mg = 1 tab(s), Oral, Daily, Refills(s) 0 Start Date: 05/19/24 Status: Ordered insulin, isophane / Regular Insulin, Human (3 sources) Insulin Start: 4 Novolin 70/30 as directed, Refill(s) 0 Start Date: 05/19/24 Status: Ordered Start: 11-11-2019 insulin NPH-in sulin regular (HumuLIN 70/30) pen Inject subcutaneously. 0 11/11/2019 Active Comment on above: Inject subcutaneousl y. lisinopril 2.5 mg oral tablet (3 sources) Angiotensin Converting Enzyme Inhibitor Start: 4 take 1 tablet by mouth once daily lisinopril 2.5 mg Tab 2.5 mg = 1 tab(s), Oral, Daily, Refills(s) 0 Start Date: 05/19/24 Status: Ordered Start: 02-23-2020 lisinopril 2.5 mg tablet Take by mouth. 0 02/23/2020 Active Comment on above: Take by mouth. metFORMIN hydrochloride 1000 mg oral tablet (3 sources) Biguanide Start: 05-19-2024 take 2 tablets by mouth once daily metformin 1000 mg Tab 2,000 mg = 2 tab(s), Oral, Daily, Refills(s) 0 Start Date: 05/19/24 Status: Ordered Start: 02-23-2020 metFORMIN (GLU COPHAGE) 1,000 mg tablet Take by mouth. 0 02/23/2020 Active Comment on above: Take by mouth. metoprolol tartrate 25 mg oral tablet (2 sources) beta-Adrenergic Ej Start: 05-19-2024 take 1 tablet by mouth once daily Metoprolol tartrate 25 mg Tab 25 mg = 1 tab(s), Oral, Daily, Refills(s) 0 Start Date: 05/19/24 Status: Ordered Multi Vitamins oral tablet (2 sources) Start: 05-19-2024 take 1 tablet by mouth once daily Multi Vitamins oral tablet 1 tab(s), Oral, Daily, Refill(s) 0 Start Date: 05/19/24 Status: Ordered Completed/Discontinued Medications Medication Drug Class(es) Dates Sig (Normalized) Sig (Original) glipiZIDE 5 mg oral tablet (1 source) [...] mouth. Problems Problem Classification Problem Date Documented Da te Episodic/Chronic Cancer of bladder (2 sources) Carcinoma of bladder Onset: 11-23-2020 05-19-2024 Chronic Comment on above: Outside Source Comme nt: h/o bladder CA Cancer of bladder (1 source) Personal history of malignant neoplasm of bladder; Translations: [PERSONAL HX MALIG NEOPLASM BLADDER] Onset: 11-09-2022 Episodic Cardiac dysrhythmias (9 sources) Paroxysmal atrial fibrillation; Translations: [Atrial fibrillation] Onset: 06-01-2020 Chronic Cardiac dysrhythmias (2 sources) Sinus bradycardia 05-19-2024 Episodic Diabetes mellitus without complication (3 sources) Type 2 diabetes mellitus without complications; Translations: [Type 2 diabetes mellitus] Onset: 11-23-2020 05-19-2024 Chronic Disorders of lipid metabolism (3 sources) Pure hypercholesterolemia , unspecified; Translations: [Mixed hyperlipidemia] Onset: 11-23-2020 05-19-2024 Chronic Essential hypertension (5 sources) Essential (primary) hypertension; Translations: [Essential hypertension] Onset: 11-23-2020 05-19-2024 Chronic Mood disorders (2 sources) Depressive disorder 05-19-2024 Chronic Other aftercare (1 source) sap solutions architect (current) use of insulin; Translations: [SECTION LEADER SCREEN PRINTING CURRENT USE OF INSULIN] Onset: 11-09-2022 Episodic Other aftercare (1 source) sap solutions architect (current) use of aspirin; Translations: [SECTION LEADER SCREEN PRINTING CURRENT USE OF ASPIRIN] Onset: 11-09-2022 Episodic Other aftercare (1 source) sap solutions architect (current) use of oral hypoglycemic drugs; Translations: [SECTION LEADER SCREEN PRINTING USE ORAL HYPOGLYCEMIC DX] Onset: 11-09-2022 Episodic Other aftercare (5 sources) Encounter for therapeutic drug level monitoring; Translations: [ENC THERAPEUTC DRUG LEVL MONITORING] Onset: 10-28-2022 Episodic Other aftercare (1 source) assisted (current) use of anticoagulants; Translations: [SECTION LEADER SCREEN PRINTING CURRNT USE ANTICOAGULANTS] Onset: 11-29-2022 Episodic Other aftercare (4 sources) Other usp (current) drug therapy; Translations: [OTH FDC CURRENT DRUG THERAPY] Onset: 10-23-2022 Episodic Other and ill-defined heart disease (2 sources) Cardiomegaly 05-19-2024 Chronic Other circulatory disease (3 sources) Personal history of other diseases of the circulatory system; Translations: [Personal history of other diseases of the circulatory system] Onset: 09-17-2024 Episodic Other gastrointestinal disorders (1 source) Abnormal feces; Translations: [Other fecal abnormalities] Onset: 06-03-2024 Episodic Other inflammatory condition of skin (2 sources) Psoriasis 05-19-2024 Chronic Other nervous system disorders (1 source) Other chronic pain; Translations: [OTHER CHRONIC PAIN] Onset: 10-18-2022 Chronic Other non-traumatic joint disorders (1 source) Pain in right shoulder; Translations: [Pain in right shoulder] Onset: 09-08-2024 Episodic Other nutritional; endocrine; and metabolic disorders (2 sources) Obesity caused by energy imbalance 05-19-2024 Chronic Other screening for suspected conditions (not mental disorders or infectious disease) (2 sources) Stool DNA-based colorectal cancer screening positive 05-19-2024 Episodic Residual codes; unclassified (1 source) Procedure and treatment not carried out for other reasons; Translations: [PROC AND TX NOT CARRIED OUT OTH REASONS] Onset: 11-09-2022 Episodic Residual codes; unclassified (2 sources) Other specified postprocedural states; Translations: [Other specified postprocedural states] Onset: 09-17-2024 Episodic Screening and history of mental health and substance abuse codes (1 source) Personal history of nicotine dependence; Translations: [PERSONAL HISTORY OF NICOTINE DEPEND] Onset: 11-09-2022 Episodic Spondylosis; intervertebral disc disorders; other back problems (6 sources) Other spondylosis with radiculopathy, lumbar region; Translations: [Degeneration of lumbar intervertebral disc] Onset: 02-02-2022 Chronic Spondylosis; intervertebral disc disorders; other back problems (5 sources) Radiculopathy, lumbar region; Translations: [Intervertebral disc disorders with radiculopathy, lumbar region] Onset: 02-06-2022 Episodic Unclassified (1 source) LOW BACK PAIN, UNSPECIFIED; Translations: [LOW BACK PAIN, UNSPECIFIED] Onset: 05-15-2022 Unclassified (1 source) CONTACT W/AND (SUSP) EXPOS COVID-19; Translations: [CONTACT W/AND (SUSP) EXPOS COVID-19] Onset: 2022 Unclassified (1 source) Shoulder Injury Onset: 09-08-2024 Unclassified (1 source) High BP Onset: 09-01-2024 Results Test Name Value Interpretation Reference Range Facility Orders Onlyon 12-03-2024 Orders Only [id number] Radha Pitts 1950 Date Provider Department [place] 12/03/2024 [id number], HISTORICAL BH CARD [facility] No family history on file Normal [facility] B-TYPE NATRIURETIC PEPTIDEon 11-25-2024 Natriuretic peptide B (Bld) [Mass/Vol] 68 pg/mL Normal <=[address] [facility] Comment on above: Performed By: #### B HIGH SCHOOL MUSIC TEACHER #### [facility] ([address] [address] VIR CBC WITH AUTO DIFFERENTIALon 11-25-2024 BASOPHILS ABSOLUTE COUNT (10*3/UL) BY AUTOMATED COUNT 0.0 10*3/uL Normal 0.0-0.[address] [facility] Comment on above: Performed By: #### C BCA #### [facility] ([address] [address] VIR BASOPHILS RELATIVE PERCENT BY AUTOMATED COUNT 0.7 % Normal [facility] Comment on above: Performed By: #### C BCA #### [facility] ([address] [address] VIR CELLAVISION DIFFERENTIAL TYPE AUTOMATED DIFFERENTIAL Normal [facility] Comment on above: Performed By: #### C BCA #### [facility] ([address] [address] VIR Eosinophils (Bld) [#/Vol] 0.1 10*3/uL Normal 0.0-0.[address] [facility] Comment on above: Performed By: #### C BCA #### [facility] ([address] [address] VIR EOSINOPHILS RELATIVE PERCENT BY AUTOMATED COUNT 1.3 % Normal [facility] Comment on above: Performed By: #### C BCA #### [facility] ([address] [address] VIR Erythrocyte distribution width (RBC) [Ratio] 14.6 % Normal 11.5-[address] [facility] Comment on above: Performed By: #### C BCA #### [facility] ([address] [address] VIR Hematocrit (Bld) [Volume fraction] 37.3 % Low 39-[address] [facility] Comment on above: Performed By: #### C BCA #### [facility] ([address] [address] VIR Hemoglobin (Bld) [Mass/Vol] 12.9 g/dL Low 13-[address] [facility] Comment on above: Performed By: #### C BCA #### [facility] ([address] [address] VIR LYMPHOCYTES ABSOLUTE COUNT (10*3/UL) BY AUTOMATED COUNT 1.3 10*3/uL Normal 1.0-3.[address] [facility] Comment on above: Performed By: #### C BCA #### [facility] ([address] [address] VIR LYMPHOCYTES RELATIVE PERCENT BY AUTOMATED COUNT 25.7 % Normal [facility] Comment on above: Performed By: #### C BCA #### [facility] ([address] [address] VIR MCH (RBC) [Entitic mass] 34.0 pg Normal 27-[address] [facility] Comment on above: Performed By: #### C BCA #### [facility] ([address] [place] [address] VIR MCHC (RBC) [Mass/Vol] 34.4 g/dL Normal 32-[address] [facility] Comment on above: Performed By: #### C BCA #### [facility] ([address] [address] VIR MCV (RBC) [Entitic vol] 99 fL Normal 80-[address] [facility] Comment on above: Performed By: #### C BCA #### [facility] ([address] [place] [address] VIR MONOCYTES ABSOLUTE COUNT (10*3/UL) BY AUTOMATED COUNT 0.4 10*3/uL Normal 0.0-0.[address] [facility] Comment on above: Performed By: #### C BCA #### [facility] ([address] [place] [address] VIR MONOCYTES RELATIVE PERCENT BY AUTOMATED COUNT 7.4 % Normal [facility] Comment on above: Performed By: #### C BCA #### [facility] ([address] [place] [address] VIR NEUTROPHILS ABSOLUTE COUNT BY AUTOMATED COUNT 3.3 10*3/uL Normal 1.5-6.[address] [facility] Comment on above: Performed By: #### C BCA #### [facility] ([address] [place] [address] VIR NEUTROPHILS RELATIVE PERCENT BY AUTOMATED COUNT 64.9 % Normal [facility] Comment on above: Performed By: #### C BCA #### [facility] ([address] [place] [address] VIR Platelet mean volume (Bld) [Entitic vol] 8.1 fL Normal 7-[address] [facility] Comment on above: Performed By: #### C BCA #### [facility] ([address] [place] [address] VIR Platelets (Bld) [#/Vol] 221 10*3/uL Normal 150-[address] [facility] Comment on above: Performed By: #### C BCA #### [facility] ([address] [place] [address] VIR RBC COUNT 3.78 X10E12/L Low 4.1-5.[address] [facility] Comment on above: Performed By: #### C BCA #### [facility] ([address] [place] [address] VIR WBC (Bld) [#/Vol] 5.1 10*3/uL Normal 4-11 [facility] Comment on above: Performed By: #### C BCA #### [facility] ([place] [address] [place] [address] VIR COMPREHENSIVE METABOLIC PANE Kobi 11-25-2024 Albumin [Mass/Vol] 4.3 g/dL Normal 3.2-5.3 [facility] Comment on above: Performed By: #### C MP #### [facility] ([place] [address] [place] [address] VIR ALP [Catalytic activity/Vol] 44 U/L Normal 39-[address] [facility] Comment on above: Performed By: #### C MP #### [facility] ([address] [place] [address] VIR ALT [Catalytic activity/Vol] 12 U/L Normal <=[address] [facility] Comment on above: Performed By: #### C MP #### [facility] ([place] [address] [place] [address] VIR Anion gap [Moles/Vol] 8 mmol/L Normal 5-[address] [facility] Comment on above: Performed By: #### C MP #### [facility] ([address] [place] [address] VIR AST [Catalytic activity/Vol] 25 U/L Normal <=[address] [facility] Comment on above: Performed By: #### C MP #### [facility] ([place] [address] [place] [address] VIR Bilirubin [Mass/Vol] 1.1 mg/dL Normal 0.3-1.[address] [facility] Comment on above: Performed By: #### C MP #### [facility] ([place] [address] [place] [address] VIR Calcium [Mass/Vol] 8.9 mg/dL Normal 8.5-10.5 [facility] Comment on above: Performed By: #### C MP #### [facility] ([address] [place] [address] VIR Chloride [Moles/Vol] 96 mmol/L Low 98-[address] [facility] Comment on above: Performed By: #### C MP #### [facility] ([address] [place] [address] VIR CO2 [Moles/Vol] 31 mmol/L Normal 22-[address] [facility] Comment on above: Performed By: #### C MP #### [facility] ([address] [place] [address] VIR Creatinine [Mass/Vol] 1.01 mg/dL Normal 0.70-1.[address] [facility] Comment on above: Result Comment: METH OD TRACEABLE TO IDMS STANDARD Performed By: #### C MP #### [facility] ([address] [address] VIR GFR/1.73 sq M.predicted among non-blacks MDRD (S/P/Bld) [Vol rate/Area] 79 mL/min/{1.73_m2} Normal >=[address] [facility] Comment on above: Result Comment: eGFR not reported due to non-numeric value for Creatinine. Reported eGFR is based on the CKD-EPI 2021 equation that does not use a race coefficient. Performed By: #### C MP #### [facility] ([address] [place] [address] VIR Glucose [Mass/Vol] 207 mg/dL High 65-99 [facility] Comment on above: Performed By: #### C MP #### [facility] ([address] [place] [address] VIR Potassium [Moles/Vol] 3.8 mmol/L Normal 3.5-5.[address] [facility] Comment on above: Performed By: #### C MP #### [facility] ([place] [address] [place] [address] VIR Protein [Mass/Vol] 6.9 g/dL Normal 6.0-8.0 [facility] Comment on above: Performed By: #### C MP #### [facility] ([address] [place] [address] VIR Sodium [Moles/Vol] 135 mmol/L Normal 134-146 [facility] Comment on above: Performed By: #### C MP #### [facility] ([address] [place] [address] VIR Urea nitrogen [Mass/Vol] 15 mg/dL Normal 5-[address] [facility] Comment on above: Performed By: #### C MP #### [facility] ([address] [place] [address] VIR MAGNESIUMon 11-25-2024 Magnesium [Mass/Vol] 1.9 mg/dL Normal 1.8-2.[address] [facility] Comment on above: Performed By: #### M G #### [facility] ([address] [place] [address] VIR TROP I, HIGH SENSITIVITY 1 H OURon 11-25-2024 TROPONIN I, HIGH SENSITIVITY 8 ng/L Normal <[address] [facility] Comment on above: Performed By: #### T [id number] #### [facility] ([address] [place] [address] VIR TROPONIN I, HIGH SENSITIVITY 0 HOURon 11-25-2024 TROPONIN I, HIGH SENSITIVITY 8 ng/L Normal <[address] [facility] Comment on above: Performed By: #### T [id number] #### [facility] ([address] [place] [address] VIR 36on 11-14-2024 36 Benjamin Jorge, TEMO Turpin MA Please let him know: BP is looking better. Continue lisinopril 5mg daily. Follow-up BMP in 2-4 weeks. Thanks! Advised patient of Jazmyn's recommendations. Patient will due blood work prior to his appointment on 12/17/2024 [facility] 37on 10-23-2024 37 *Increase lisinopril to 5mg daily. Continue to check your blood pressure daily 2 hours after medications and write down your readings. We will call you in 2 weeks to see how your BP is doing and see if we need to increase your medication any further. [facility] Follow-Upon 10-23-2024 Follow-Up [id number] Radha Pitts 1950 Date Provider Department Center 10/23/2024 166-BENJAMIN PATEL CARD [facility] No family history on file Level of Service:78227 [place] OFFICE/OUTPATIENT ESTABLISHED MOD MDM 30 MIN Reason for Visit and Comments: Atrial Fibrillation [80] Hypertension [308304] Hyperlipidemia [182] [facility] Telephoneon 09-26-2024 Telephone [id number] Radha Pitts 1950 Date Provider Department Center 09/26/2024 1987-AMY GARCIA [facility] No family history on file Reason for Visit and Comments: week f/u post ablation [Other] [facility] 30on 09-18-2024 30 The patient is Moderately Stable - Low risk of patient condition declining or worsening The patient's goals for the shift include comfort, rest The clinical goals for the shift include VSS, safety Problem: Cardiovascular - Adult Goal: Maintains optimal cardiac output and hemodynamic stability Outcome: Progressing Flowsheets (Taken 09/18/2024814) Maintains optimal cardiac output and hemodynamic stability: Monitor blood pressure and heart rate Problem: Gastrointestinal - Adult Goal: Maintains or returns to baseline bowel function Outcome: Progressing Flowsheets (Taken 09/18/2024814) Maintains or returns to baseline bowel function: Assess bowel function Problem: Hematologic - Adult Goal: Maintains hematologic stability Outcome: Progressing Flowsheets (Taken 09/18/2024814) Maintains hematologic stability: Assess for signs and symptoms of bleeding or hemorrhage [facility] CBC WITH AUTO DIFFERENTIALon 09-18-2024 Basophils (Bld) [#/Vol] 0.04 10*3/uL Normal 0.00-0.20 [facility] Comment on above: Performed By: #### L [id number] #### [facility] ([facility]) [address] [place] [address] Basophils/100 WBC (Bld) 0.4 % Normal 0.0-1.0 [facility] Comment on above: Performed By: #### L [id number] #### [facility] ([facility]) [address] [place] [address] Eosinophils (Bld) [#/Vol] 0.00 10*3/uL Normal 0.00-0.50 [facility] Comment on above: Performed By: #### L [id number] #### [facility] ([facility]) [address] [place] [address] Eosinophils/100 WBC (Bld) 0.0 % Normal 0.0-6.0 [facility] Comment on above: Performed By: #### L [id number] #### [facility] ([facility]) [address] [place] [address] Erythrocyte distribution width (RBC) [Ratio] 13.7 % Normal 11.5-15.0 [facility] Comment on above: Performed By: #### L [id number] #### [facility] (BEAKER) [address] [place] [address] ERYTHROCYTE MEAN CORPUSCULAR HEMOGLOBIN CONCENTRATION (G/DL) BY AUTOMATED 32.1 g/dL Normal 32.0-35.0 [facility] Comment on above: Performed By: #### L [id number] #### [facility] (BEAKER) [address] [place] [address] Hematocrit (Bld) [Volume fraction] 37.7 % Low 39.0-50.0 [facility] Comment on above: Performed By: #### L [id number] #### [facility] (BEAKER) [address] [facility] [place] [address] Hemoglobin (Bld) [Mass/Vol] 12.1 g/dL Low 13.0-17.0 [facility] Comment on above: Performed By: #### L [id number] #### [facility] (BEAKER) [address] [place] [address] Immature granulocytes (Bld) [#/Vol] 0.05 10*3/uL Normal 0.00-0.20 [facility] Comment on above: Performed By: #### L [id number] #### [facility] (BEAKER) [address] [place] [address] Immature granulocytes/100 WBC (Bld) 0.5 % Normal 0.0-1.0 [facility] Comment on above: Performed By: #### L [id number] #### [facility] (BEAKER) [address] [place] [address] Lymphocytes (Bld) [#/Vol] 1.12 10*3/uL Low 1.20-4.00 [facility] Comment on above: Performed By: #### L [id number] #### [facility] (BEAKER) [address] [place] [place] [address] Lymphocytes/100 WBC (Bld) 11.8 % Low 20.0-45.0 [facility] Comment on above: Performed By: #### L [id number] #### [facility] (BEAKER) [address] [place] [place] [address] MCH (RBC) [Entitic mass] 32.3 pg Normal 27.0-33.0 [facility] Comment on above: Performed By: #### L [id number] #### [facility] (BEAKER) [address] [place] [address] MCV (RBC) [Entitic vol] 100.5 fL High 82.0-98.0 [facility] Comment on above: Performed By: #### L [id number] #### [facility] (BEAKER) [address] [place] [address] Monocytes (Bld) [#/Vol] 0.51 10*3/uL Normal 0.10-1.00 [facility] Comment on above: Performed By: #### L [id number] #### [facility] ([facility]) [address] [place] [address] Monocytes/100 WBC (Bld) 5.4 % Normal 5.0-12.0 [facility] Comment on above: Performed By: #### L [id number] #### [facility] ([facility]) [address] [place] [address] Neutrophils (Bld) [#/Vol] 7.81 10*3/uL High 1.60-7.60 [facility] Comment on above: Performed By: #### L [id number] #### [facility] ([facility]) [address] [place] [address] Neutrophils/100 WBC (Bld) 81.9 % High 40.0-72.0 [facility] Comment on above: Performed By: #### L [id number] #### [facility] ([facility]) [address] [place] [address] NRBC (PER 100 WBCS) BY AUTOMATED COUNT 0.0 % Normal 0 [facility] Comment on above: Performed By: #### L [id number] #### [facility] ([facility]) [address] [place] [address] PLATELETS (10*3/UL) IN BLOOD AUTOMATED COUNT 260 10*3/uL Normal 150-400 [facility] Comment on above: Performed By: #### L [id number] #### [facility] ([facility]) [address] [place] [address] RBC (Bld) [#/Vol] 3.75 10*6/uL Low 4.20-5.70 [facility] Comment on above: Performed By: #### L [id number] #### [facility] (BEAKER) [address] [place] [address] WBC (Bld) [#/Vol] 9.53 10*3/uL Normal 4.00-10.60 [facility] Comment on above: Performed By: #### L [id number] #### [facility] (MIKI) [address] [place] [address] DSon 09-18-2024 DS Admission Admitted 09/17/2024 for Paroxysmal A-fib (CMS/HCC) Discharge Diagnosis A-fib (CMS/HCC) s/p atrial fibrillation ablation Discharge Disposition Home or Self Care () Discharge Medications Your medication list START taking these medications Instructions Last Dose Given Next Dose Due apixaban 5 mg tablet Commonly known as: Eliquis Take 1 tablet (5 mg) by mouth in the morning and at bedtime. famotidine 20 mg tablet Commonly known as: Pepcid Take 1 tablet (20 mg) by mouth two times daily. CONTINUE taking these medications Instructions Last Dose Given Next Dose Due amiodarone 200 mg tablet Commonly known as: Pacerone Take 1 tablet (200 mg) by mouth once daily as directed. aspirin 81 mg chewable tablet atorvastatin 80 mg tablet Commonly known as: Lipitor empagliflozin 25 mg Commonly known as: Jardiance folic acid 1 mg tablet Commonly known as: Folvite insulin NPH and regular human 100 unit/mL (70-30) injection pen Commonly known as: NovoLIN lisinopril 2.5 mg tablet metFORMIN 1,000 mg tablet Commonly known as: Glucophage methotrexate 2.5 mg tablet metoprolol succinate XL 25 mg 24 hr tablet Commonly known as: Toprol-XL multivitamin tablet ASK your doctor about these medications Instructions Last Dose Given Next Dose Due empagliflozin 10 mg Commonly known as: Jardiance Take 1 tablet every day by oral route for 30 days. Where to Get Your Medications These medications were sent to [facility] - [place], [place] - [address] [place] [address], [facility] [address] famotidine 20 mg tablet Activity Normal activity as tolerated. Do not lift/push/pull more than 5-10 lbs over the next week. Showering instructions: Can shower. Replace bandage with clean and dry one after showering. Do not scrub area. Pat dry and keep clean. , NO tub bathing, hot-tubs, or pools for one week. Diet Continue on the same type of diet and foods as you were eating before your admission. Drink plenty of water. Allergies Clindamycin phosphate Hospital Course Radha Christopher Pitts is a 74 yo male with PMHx significant for HTN, type 2 diabetes mellitus, persistent/permanent atrial fibrillation on amiodarone and eliquis, CAD, hyperlipidemia. He was recently at [facility] ER in 08/2021 for strokelike symptoms which have resolved and MRI at the time was negative for acute infarct. 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 Currently asymptomatic with his afib and has been tolerating amiodarone. Patient presented for elective afib ablation this admission. ATRIAL FIBRILLATION ABLATION PROCEDURE NOTE DATE OF PROCEDURE: 09/17/2024 PERFORMING PHYSICIAN: Dr. Aren Sparrow BROOD HATCHERY MANAGER: JHOAN CONSENT: Patient NAME OF THE PROCEDURE: Pulmonary Vein Isolation and Comprehensive EP study. INDICATIONS FOR PROCEDURE: 1. Persistent atrial fibrillation. FLUROSCOPY: 3.4min/ 40mGy. EBL: 15cc SPECIMEN REMOVED: None LA baseline (mmHg) 1st and 2nd 20/11 @750ms, 25/10 @800ms LA 600ms pacing (mmHg) NA LA 400ms pacing (mmHg) NA AHms 95, 85 HVms 57, 63 VERPms 600/300, VA condunction- AV Wenkebach ms 730ms AH jump ms NA AVNERP ms 600/490 AERP ms 600/310 POST PROCEDURE DIAGNOSIS 1. Persistent atrial fibrillation s/p PVI (WACA)+ Superior and Inferior roof line (Post Box isolaton)+ Substrate modification. 2. Atrial flutter s/p CTI ablation with confirmed block. 3. Elevated LA filling pressures with tachycardia. 4. Poor AV clay conduction and sinus node dysfunction. 5. Extreme amount of LA scarring in all of LA. PLAN: 1. Anticoagulation after 2 hrs of sheath removal. 2. Protonix 40mg bid x 1 month 3. Groin precautions. Aren Sparrow MD Cardiac Electrophysiology Pertinent Physical Exam At Time of Discharge Physical Exam Constitutional: Appearance: Normal appearance. HENT: Head: Normocephalic. Cardiovascular: Rate and Rhythm: Normal rate and regular rhythm. Pulses: Normal pulses. Heart sounds: Normal heart sounds. Pulmonary: Effort: Pulmonary effort is normal. Breath sounds: Normal breath sounds. Abdominal: General: Abdomen is flat. Palpations: Abdomen is soft. Musculoskeletal: Cervical back: Normal range of motion and neck supple. Skin: General: Skin is warm and dry. Comments: Ablation access sites examined this morning. Perclose sutures removed and bandage replaced. No bleeding. No bruising. No hematoma. Neurological: General: No focal deficit present. Mental Status: He is alert. Mental status is at baseline. Psychiatric: Mood and Affect: Mood normal. Behavior: Behavior normal. Thought Content: Thought content normal. Lab Results Labs Reviewed CBC WITH AUTO DIFFERENTIAL - Abnormal Result Value Auto WBC 9.53 RBC 3.75 (*) Hemoglobin 12.1 (*) Hematocrit 37.7 (*) MCV 100.5 (*) MCH 32.3 MCHC 32.1 RDW 13.7 Neutrophils Relative 81.9 (*) (more content not included)... Normal [facility] POCT GLUCOSE METER UNSOLICIT ED RESULTSon 09-18-2024 Glucose [Mass/Vol] 179 mg/dL High 70-105 [facility] Comment on above: Order Comment: Waive d Testing in the ED is performed under the ED CLIA certificate #[id number]. Result Comment: [email or web address] Performed By: #### L [id number] ####[facility] (BEAKER)[address] [place] [address] Anesthesiaon 09-17-2024 Anesthesia [id number] Radha Pitts 1950 M Date Provider Department Center 09/17/[id number], TAYL*C VASC LAB [facility] No family history on file Normal [facility] HPon 09-17-2024 HP -- Attestation signed by Aren Sparrow MD at 09/17/2024 2:15 PM By using the attestations below, the signing clinician agrees that I have read and verify that the documentation has been personally reviewed by me and ensure that the documentation accurately reflects the encounter. GC: I performed the wolf portion(s) of the service and participated in the management and confirm the resident's documentation. Please note there may be an additional personal documentation from me. Afib ablation would require placement of multiple catheters in the heart under moderate sedation which will include diagnostic catheters, ICE catheters and ablation catheters. The risk of the procedures can be described as minor and major minor complications being discomfort in the groin area, bleeding, infection and vascular complications at this fistula formation, pseudoaneurysm, nerve injury. Major complications would include catheter induced cardiac perforation leading to tamponade/ pericardial effusion which may or may not require surgical intervention. Other complications are phrenic nerve injury leading to paralysis, thromboembolism including pulmonary and systemic event leading to stroke or endorgan injury or or PV stenosis or AE fistula as post ablation adverse effects. There could be a possibility of catheter induced valve entrapment which may require surgical intervention and valve replacement. Given that these procedures are performed under x-ray, they could be acute or long-term side effects from radiation . Gven the comorbidities, the likelihood of attaining sinus rhythm would be ~75% and reiterated the importance of weight loss and an exercise regimen as well as treatment of sleep apnea which would be beneficial in long-term maintenance of sinus rhythm based on data from LEGACY and CARDIOFIT trials. Overall the risk of these complications ranged anywhere from 1-5%. Patient verbalized understanding and have agreed to proceed with the procedure. ME Electrophysiology Consult Note Reason for visit: afib HPI: Radha Pitts is a 74 y.o. year old with past medical history of HTN/ DM2/ Persistent/? Permanent A-fib on amiodarone, metoprolol and eliquis, CAD, hypertension, hyperlipidemia. He was recently at [facility] in August 2021 for strokelike symptoms which [...] amiodarone. seem to be tolerating his DOAC. 09/18/23: Patient presents for atrial fibrillation ablation. PMH: Past Medical History: Diagnosis Date Afib (CMS/HCC) Cancer (CMS/HCC) bladder cancer Diabetes mellitus (CMS/HCC) Hyperlipidemia Hypertension Joint pain RT SHOULDER PAIN 09/01/24 ER VISIT PSH: Past Surgical History: Procedure Laterality Date BLADDER SURGERY COLONOSCOPY CYSTOSCOPY SH: Social Determinants of Health Tobacco Use: Medium Risk (09/17/2024) Patient History Smoking Tobacco Use: Former Smokeless Tobacco Use: Never Passive Exposure: Not on file Alcohol Use: Not on file Financial Resource Strain: Not on file Food Insecurity: No Food Insecurity (09/08/2024) Received from [facility] Hun[facility] Screening Within the past 12 months we worried whether our food would run out before we got money to buy more.: Never True Within the past 12 months the food we bought just didn't last and we didn't have money to get more.: Never True Transportation Needs: Not on file Physical Activity: Not on file Stress: Not on file Social Connections: Not on file Intimate Partner Violence: Unknown (08/23/2023) [place] [facility] [employer] [place] Fear of Current or Ex-Partner: Not on file Emotionally Abused: Not on file Physically Abused: Not on file Sexually Abused: Not on file Physically or Sexually Abused: Not on file Depression: Not at risk (11/12/2020) [facility] from [facility] PHQ-2 PHQ-2 score: 0 Housing Stability: Low Risk (08/24/2022) [facility] Housing Instability Are you worried or concerned that in the next two months you may not have stable housing that you own, rent or stay in as a part of a household?: No Utilities: Not on file Health Literacy: Not on file Allergies: Allergies Allergen Reactions Clindamycin Phosphate Swelling DENIED Weight: 86.2kg Visit Vitals BP 142/76 Pulse (!) 45 Comment: baseline per pt heart rate is usually in the 50s Temp 36.2 ???C (more content not included)... Normal [facility] POCT GLUCOSE METER UNSOLICIT ED RESULTSon 09-17-2024 Glucose [Mass/Vol] 144 mg/dL High 70-105 [facility] Comment on above: Order Comment: Waive d Testing in the ED is performed under the ED CLIA certificate #[id number]. Result Comment: [email or web address] Performed By: #### L [id number] ####[facility] ([facility])[address] [place] [address] Glucose [Mass/Vol] 157 mg/dL High 70-105 [facility] Comment on above: Order Comment: Waive d Testing in the ED is performed under the ED CLIA certificate #[id number]. Result Comment: [email or web address] Performed By: #### L [id number] #### [facility] ([facility]) [address] [place] [address] Glucose [Mass/Vol] 156 mg/dL High 70-105 [facility] Comment on above: Order Comment: Waive d Testing in the ED is performed under the ED CLIA certificate #[id number]. Result Comment: [email or web address] Performed By: #### L [id number] ####[facility] ([facility])[address] [place] [address] PROTIME-INRon 09-17-2024 INR IN PPP BY COAGULATION ASSAY 1.08 Normal 0.90-1.10 [facility] Comment on above: Result Comment: ACCC P RECOMMENDED INR FOR WARFARIN THERAPY CONDITION INR PROPHYLAXIS OF VENOUS THROMBOSIS 2-3 (HIGH-RISK SURGERY) TREATMENT OF VENOUS THROMBOSIS 2-3 TREATMENT OF PULMONARY EMBOLISM 2-3 PREVENTION OF SYSTEMIC EMBOLISM: 2-3 ACUTE MYOCARDIAL INFARCTION TISSUE HEART VALVES VALVULAR HEART DISEASE ATRIAL FIBRILLATION RECURRENT SYSTEMIC EMBOLISM MECHANICAL HEART VALVE 2.5-3.5 FROM: ORAL ANTICOAGULANTS. MECHANISM OF ACTION, CLINICAL EFFECTIVENESS, AND OPTIMAL THERAPEUTIC RANGE. CHEST 1995;108:231S-246S. Performed By: #### L [id number] #### [facility] (BEAKER) [address] [place] [address] PROTHROMBIN TIME (PT) IN PPP BY COAGULATION ASSAY 13.9 Seconds Normal 12.3-14.8 [facility] Comment on above: Performed By: #### L [id number] #### [facility] (BEAKER) [address] [place] [address] Prep for Procedureon 025 Prep for Procedure [id number] Radha Pitts 1950 [facility] Provider Department Center 09/17/20241986-AMY GARCIA HV VASC LAB [facility] No family history on file Normal [facility] Orders Onlyon 09-11-2024 Orders Only [id number] Radha Pitts 1950 [facility] Provider Department Center 09/11/2024 Connor5-STEFAN JORDAN [facility]OPER [facility] Rosario Hos No family history on file Normal [facility] Orders Onlyon 09-10-2024 Orders Only [id number] Radha Pitts 1950 [facility] Provider Department Center 09/10/2024 Deacon-RICO JAMESON [facility] PAT ME Medical C No family history on file Normal [facility] XR SHOULDER RT MIN 2 VWSon 0 09-08-2024 XR SHOULDER RT MIN 2 VWS XR SHOULDER RT MIN 2 VWS XR SHOULDER RT MIN 2 VWS HISTORY: injury. Pain COMPARISON: none IMPRESSION: No convincing acute fracture, dislocation or malalignment. Subtle cortical irregularity about the inferior glenoid, possibly projectional or related to degenerative changes; nondisplaced fracture is also possible, not especially favored. Moderate degenerative changes acromial clavicular joint, which is congruent. Vascular calcifications. Osteopenia. Finalized by Hong Vigil MD on 09/08/2024 9:47 AM Normal [facility] BASIC METABOLIC PANLon 09-01 Anion gap [Moles/Vol] 8 mmol/L Normal 5-[address] [facility] Comment on above: Performed By: #### B CAROL CBCChristopher, 74101-4 #### [facility] ([id number]) [address] [place] [address] Calcium [Mass/Vol] 9.6 mg/dL Normal 8.5-10.5 [facility] Comment on above: Performed By: #### B CAROL CBCA, 07752-6 #### [facility] ([id number]) [address] [place] [address] Chloride [Moles/Vol] 99 mmol/L Normal 98-[address] [facility] Comment on above: Performed By: #### B CAROL CBCChristopher, 93190-2 #### [facility] ([id number]) [address] [place] [address] CO2 [Moles/Vol] 30 mmol/L Normal 22-[address] [facility] Comment on above: Performed By: #### B CAROL CBCChristopher, 12706-5 #### [facility] ([id number]) [address] [place] [address] Creatinine [Mass/Vol] 1.00 mg/dL Normal 0.70-1.[address] [facility] Comment on above: Result Comment: METH OD TRACEABLE TO IDMS STANDARD Performed By: #### B CAROL CBCA, 38904-2 #### [facility] ([id number]) [address] [place] [address] GFR/1.73 sq M.predicted among non-blacks MDRD (S/P/Bld) [Vol rate/Area] 79 mL/min/{1.73_m2} Normal >[address] [facility] Comment on above: Result Comment: Reported eGFR is based on the CKD-EPI 2020 equation that does not use a race coefficient. Performed By: #### B TIRSO MEDINA, 75351-8 #### [facility] ([id number]) [address] [place] [address] Glucose [Mass/Vol] 111 mg/dL High 65-99 [facility] Comment on above: Performed By: #### B TIRSO MEDINA, 59486-6 #### [facility] ([id number]) [address] [place] [address]651 Potassium [Moles/Vol] 4.2 mmol/L Normal 3.5-5.[address] [facility] Comment on above: Performed By: #### B TIRSO MEDINA, 10783-2 #### [facility] ([id number]) [address] [place] [address]7821 Sodium [Moles/Vol] 137 mmol/L Normal 134-146 [facility] Comment on above: Performed By: #### B TIRSO MEDINA, 40564-9 #### [facility] ([id number]) [address] [place] [address]266 Urea nitrogen [Mass/Vol] 15 mg/dL Normal 5-[address] [facility] Comment on above: Performed By: #### B TIRSO MEDINA, 12274-9 #### [facility] ([id number]) [address] [place] [address]236 CBC AND AUTO DIFFon -- 25 ABSOLUTE BASOPHIL 0.1 X10E9/L Normal 0.0-0.2 [facility] Comment on above: Performed By: #### B TIRSO MEDINA, 60693-2 #### [facility] ([id number]) [address] [place] [address]246 ABSOLUTE NEUTROPHIL 3.8 X10E9/L Normal 1.5-6.6 [facility] Comment on above: Performed By: #### B CAROL, CBCA, 49450-6 #### [facility] ([id number]) [address] [place] [address] 89017 Basophils/100 WBC (Bld) 0.9 % Normal [facility] Comment on above: Performed By: #### B MP, CBCA, 47769-6 #### [facility] ([id number]) [address] [place] [address]876 Eosinophils (Bld) [#/Vol] 0.1 10*3/uL Normal 0.0-0.[address] [facility] Comment on above: Performed By: #### B CAROL, CBCA, 43103-6 #### [facility] ([id number]) [address] [place] [address]11 Eosinophils/100 WBC (Bld) 1.9 % Normal [facility] Comment on above: Performed By: #### B CAROL, CBCA, 37256-6 #### [facility] ([id number]) [address] [place] [address]129 Erythrocyte distribution width (RBC) [Ratio] 14.8 % Normal 11.5-15.[address] [facility] Comment on above: Performed By: #### B CAROL, CBCA, 94848-7 #### [facility] ([id number]) [address] [place] [address] 16581 Hematocrit (Bld) [Volume fraction] 41.9 % Normal 39-[address] [facility] Comment on above: Performed By: #### B CAROL, CBCA, 39533-4 #### [facility] ([id number]) [address] [place] [address] 50391 Hemoglobin (Bld) [Mass/Vol] 14.0 g/dL Normal 13.0-17.[address] [facility] Comment on above: Performed By: #### B CAROL, CBCA, 49251-5 #### [facility] ([id number]) [address] [place] [address] 68084 Lymphocytes (Bld) [#/Vol] 2.2 10*3/uL Normal 1.0-3.[address] [facility] Comment on above: Performed By: #### B CAROL, CBCA, 21402-4 #### [facility] ([id number]) [address] [place] [address] 98610 Lymphocytes/100 WBC (Bld) 32.6 % Normal [facility] Comment on above: Performed By: #### B CAROL, CBCA, 84394-7 #### [facility] ([id number]) [address] [place] [address] 41799 MCH (RBC) [Entitic mass] 32.8 pg Normal 27-[address] [facility] Comment on above: Performed By: #### B CAROL, CBCA, 39301-9 #### [facility] ([id number]) [address] [place] [address] 59955 MCHC (RBC) [Mass/Vol] 33.4 g/dL Normal 32-[address] [facility] Comment on above: Performed By: #### B CAROL, CBCA, 05780-0 #### [facility] ([id number]) [address] [place] [address] 19831 MCV (RBC) [Entitic vol] 98 fL Normal 80-[address] [facility] Comment on above: Performed By: #### B CAROL, CBCA, 86981-1 #### [facility] ([id number]) [address] [place] [address] 95893 Monocytes (Bld) [#/Vol] 0.5 10*3/uL Normal 0-0.[address] [facility] Comment on above: Performed By: #### B CAROL, CBCA, 36724-2 #### [facility] ([id number]) [address] [place] [address] 82193 Monocytes/100 WBC (Bld) 7.8 % Normal [facility] Comment on above: Performed By: #### B MP, CBCA, 31121-9 #### [facility] ([id number]) [address] [place] [address] 63375 Neutrophils/100 WBC (Bld) 56.8 % Normal [facility] Comment on above: Performed By: #### B MP, CBCA, 81859-5 #### [facility] ([id number]) [address] [place] [address] 24844 Platelet mean volume (Bld) [Entitic vol] 8.3 fL Normal 7-[address] [facility] Comment on above: Performed By: #### B MP, CBCA, 64265-8 #### [facility] ([id number]) [address] [place] [address] 34807 Platelets (Bld) [#/Vol] 304 10*3/uL Normal 150-[address] [facility] Comment on above: Performed By: #### B MP, CBCA, 60860-6 #### [facility] ([id number]) [address] [place] [address] 33705 RBC COUNT 4.26 X10E12/L Normal 4.10-5.[address] [facility] Comment on above: Performed By: #### B MP, CBCA, 65880-3 #### [facility] ([id number]) [address] [place] [place] [id number] WBC (Bld) [#/Vol] 6.8 10*3/uL Normal 4.0-11.0 [facility] Comment on above: Performed By: #### B MP, CBCA, 96168-6 #### [facility] ([id number]) [address] [place] [address] [place] [address] Natriuretic peptide B [Mass/ Vol]on 09-01-2024 Natriuretic peptide B (Bld) [Mass/Vol] 58 pg/mL Normal <100.[address] [facility] Comment on above: Performed By: #### B TIRSO MEDINA, 39029-9 #### [facility] ([id number]) [address] [place] [address], [place] [address] Orders Onlyon 08-05-2024 Orders Only [id number] Radha Pitts 1950 [facility] Provider Department Center 08/05/20242003LUZ ELENA JAMESONGURJIT [facility] No family history on file [facility] Orders Onlyon 07-04-2024 Orders Only [id number] Radha Pitts 1950 [facility] Provider Department [place] 07/04/2024[facility] No family history on file [facility] Erroneous Telephone Encounte felisa 07-01-2024 Erroneous Telephone Encounter [id number] Radha Pitts 1950 [facility] Provider Department [place] 07/01/2024 Petrona-CHRISTA TONEY [facility] V[facility] ME HeartVAS No family history on file Reason for Visit and Comments: Error (VOID this visit) [77] - Patient cancelled his a-fib ablation for 07/09/2024 - WANDY will need rescheduled when the ablation is rescheduled [facility] Orders Onlyon 06-30-2024 Orders Only [id number] Radha Pitts 1950 Date Provider Department [place] 06/30/2024 LUZ ELENA LOJAGURJIT [facility] No family history on file [facility] Office Visiton 06-17-2024 Follow-up visit [id number] Radha Pitts 1950 Date Provider Department [place] 06/17/[address] [facility] No family history on file Level of Service:25826 [place] OFFICE/OUTPATIENT ESTABLISHED MOD MDM 30 MIN [facility] Prep for Procedureon 024 Prep for Procedure [id number] Radha Pitts 1950 M Date Provider Department Center 05/23/2024 Leobardo-AMY GARCIA [facility] V[facility] UT Heart[facility]AS No family history on file Normal [facility] Office Visiton 04-22-2024 Follow-up visit [id number] Radha Pitts 1950 Date Provider Department Center 04/22/2024 [facility]-AREN SPARROW [facility] No family history on file Level of Service:09645 [place] OFFICE/OUTPATIENT ESTABLISHED LOW MDM 20 MIN Normal [facility] Physician Referralon 024 Physician Referral [phone] [id number] TIFF Normal [facility] POINT OF CARE GLUCOSEon 05-0 Glucose [Mass/Vol] 228 mg/dL Critically high 74-106 T [facility] Comment on above: Performed By: #### P OCGLUC #### [facility] [address] [address] [address] Alex Doll PROTIMEon 11-07-2022 INR Coag (PPP) [Relative time] 1.03 {INR} Normal [facility] Comment on above: Performed By: #### T SH, LIVER #### [facility] [address] [place] [address] Dr. Alex Doll INR GUIDELINES SEE BELOW Normal [facility] Comment on above: Result Comment: TARA RED INR: 2.0 - 3.0 CONDITIONS NOT LISTED BELOW 2.5 - 3.5 FOR PROSTHETIC HEART VALVE REPLACEMENT 2.5 - 3.5 RECURRENT THROMBOSIS Performed By: #### T SH, LIVER #### [facility] [address] [address] [address] Alex Doll PT Coag (PPP) [Time] 10.9 s Normal 9.0-11.[address] [facility] Comment on above: Performed By: #### T SH, LIVER #### [facility] [address] [place] [address] Dr. Alex Doll MRI LSPINE WO CONon 05-03-20 23 MRI LSPINE WO CON EXAM: MRI LSPINE [...] CÉSAR IBANEZ Date: 2022-11-01 10:08 Normal The [facility] FREE T4on 10-23-2022 Free T4 [Mass/Vol] 0.89 ng/dL Normal 0.76-1.46 [facility] Comment on above: Performed By: #### F T4 #### [facility] [address] [place] [address] Dr. Alex Doll LIVER PROFILEon 10-23-2022 Albumin [Mass/Vol] 3.8 g/dL Normal 3.4-5.0 [facility] Comment on above: Performed By: #### T SH, LIVER #### [facility] [address] [place] [address] Dr. Alex Doll Albumin/Globulin [Mass ratio] 1.2 {ratio} Normal [facility] Comment on above: Performed By: #### T SH, LIVER #### [facility] [address] [place] [address] Dr. Alex Doll ALP [Catalytic activity/Vol] 40 U/L Critically low 46-116 The [facility] Comment on above: Performed By: #### T SH, LIVER #### [facility] [address] [place] [address] Dr. Alex Doll ALT [Catalytic activity/Vol] 20 U/L Normal 16-63 The [facility] Comment on above: Performed By: #### T SH, LIVER #### [facility] [address] [place] [address] Dr. Alex Doll AST [Catalytic activity/Vol] 22 U/L Normal 15-37 The [facility] Comment on above: Performed By: #### T SH, LIVER #### [facility] [address] [place] [address] Dr. Alex Doll BILI, CONJUGATED 0.2 mg/dL Normal 0.0-0.2 The [facility] Comment on above: Performed By: #### T SH, LIVER #### [facility] [address] [place] [address] Dr. Alex Doll Bilirubin [Mass/Vol] 0.9 mg/dL Normal 0.2-1.[address] [facility] Comment on above: Performed By: #### T SH, LIVER #### [facility] [address] [place] [address] Dr. Alex Doll Globulin (S) [Mass/Vol] 3.3 g/dL Normal [facility] Comment on above: Performed By: #### T SH, LIVER #### [facility] [address] [place] [address] Dr. Alex Doll Protein [Mass/Vol] 7.1 g/dL Normal 6.4-8.2 [facility] Comment on above: Performed By: #### T SH, LIVER #### [facility] [address] [place] [address] Dr. Alex Doll TSHon 10-23-2022 TSH 6.589 uIU/mL Critically high 0.358-3.740 [facility] Comment on above: Performed By: #### T SH, LIVER #### [facility] [address] [place] [address] Dr. Alex Doll XR CHEST 2 Von [...] by: MAKENNA RAMOS Date: 2022-10-23 08:[address] [facility] XR LSPINE 2_3 VIEWSon 2022 XR [...] MAKENNA RAMOS Date: 2022-10-17 09:43 Normal The [facility] POINT OF CARE GLUCOSEon 12-30 Glucose [Mass/Vol] 154 mg/dL Critically high 74-106 T he [facility] Comment on above: Performed By: #### P OCGLUC #### [facility] [address] [place], [place] [address] Dr. Alex Doll Covid-19 PCR ([facility])on 12-30 SARS-CoV-2 (COVID-19) RNA RICH+probe Ql (Unsp spec) Not detected Normal NOT DETECTED The [facility] Comment on above: Result Comment: This test is not yet approved or cleared by the [place] FDA. When there are no FDA-approved or cleared tests available, and other criteria are met, FDA can make tests available under an emergency access mechanism called an Emergency Use Authorization (EUA). The EUA for this test is supported by the [place] of Health and Human Service's (HHS's) declaration [...] consistent with SARS-CoV-2. Performed By: #### T SH, LIVER #### [facility] [address] [place], [place] [address] Dr. Alex Doll Cardiovascular Lab Reporton 07-01-2021 Cardiovascular Lab Report [facility] Patient Name: Radha Pitts MR #: [id number] [facility] Physician: Benjamin Patel CNP Department of Service Date: 06/29/2021 Medicine Birthdate: 1950 Division of Room #: CC Cardiology Adult Cardiovascular Services [facility] [address] [place] [address] Cardiovascular Laboratory Report FINAL IMPRESSIONS: 1. Mild [...] Hermosillo MD Date Trans: 07/01/2021 11:33 A/ FAHEEM_[id number] Normal The [facility] CBC W/DIFFon 06-29-2021 ABS IMM GRANS 0.0 10*3/uL Normal 0.0-0.2 The [facility] Comment on above: Performed By: #### 5 0103 #### [facility] [address] [place] [address], [facility] ABS NEUTROPHILS 4.2 10*3/uL Normal 1.6-7.6 The [facility] [place] [facility] Comment on above: Performed By: #### 5 0103 #### [facility] [address] [place] [address], [facility] Basophils (Bld) [#/Vol] 0.0 10*3/uL Normal 0.0-0.2 [facility] Comment on above: Performed By: #### 5 0103 #### [facility] [address] [place] [address], [facility] Basophils/100 WBC (Bld) 0.6 % Normal 0.0-1.0 [facility] Comment on above: Performed By: #### 5 0103 #### [facility] [address] [place] [address], [facility] Eosinophils (Bld) [#/Vol] 0.1 10*3/uL Normal 0.0-0.5 [facility] Comment on above: Performed By: #### 5 0103 #### [facility] [address] [place] [address], [facility] Eosinophils/100 WBC (Bld) 1.3 % Normal 0.0-6.0 [facility] Comment on above: Performed By: #### 5 0103 #### [facility] [address] [place] [address], [facility] Erythrocyte distribution width (RBC) [Ratio] 12.7 % Normal 11.5-15.0 [facility] Comment on above: Performed By: #### 5 3 #### [facility] [address] [place] [address], [facility] Hematocrit (Bld) [Volume fraction] 43.8 % Normal 39.0-50.0 [facility] Comment on above: Performed By: #### 5 0103 #### [facility] [address] [place] [address], [facility] Hemoglobin (Bld) [Mass/Vol] 14.5 g/dL Normal 13.0-17.0 [facility] Comment on above: Performed By: #### 5 0103 #### [facility] [address] [place] [address], [facility] IMMATURE GRANS 0.3 % Normal 0.0-1.0 The [facility] Comment on above: Performed By: #### 5 0103 #### [facility] [address] [place] [address], [facility] Lymphocytes (Bld) [#/Vol] 1.9 10*3/uL Normal 1.2-4.0 [facility] Comment on above: Performed By: #### 5 0103 #### [facility] [address] [place] [address], [facility] Lymphocytes/100 WBC (Bld) 28.5 % Normal 20.0-45.0 [facility] Comment on above: Performed By: #### 5 0103 #### [facility] [address] [facility] [place] [address], [facility] MCH (RBC) [Entitic mass] 32.7 pg Normal 27.0-33.0 [facility] Comment on above: Performed By: #### 5 0103 #### [facility] [address] [place] [address], [facility] MCHC (RBC) [Mass/Vol] 33.1 g/dL Normal 32.0-35.0 [facility] Comment on above: Performed By: #### 5 3 #### [facility] [address] [place] [address], [facility] MCV (RBC) [Entitic vol] 98.9 fL High 82.0-98.0 [facility] Comment on above: Performed By: #### 5 0103 #### [facility] [address] [place] [address], [facility] Monocytes (Bld) [#/Vol] 0.5 10*3/uL Normal 0.1-1.0 [facility] Comment on above: Performed By: #### 5 0103 #### [facility] [address] [place] [address], [facility] MONOS 7.4 % Normal 5.0-12.0 [facility] Comment on above: Performed By: #### 5 102 #### [facility] [address] [place] [address], [facility] Neutrophils/100 WBC (Bld) 61.9 % Normal 40.0-72.0 [facility] Comment on above: Performed By: #### 5 102 #### [facility] [address] [facility] [place] [address], [facility] Nucleated RBC/100 WBC (Bld) [Ratio] 0 % Normal 0-0 [facility] Comment on above: Performed By: #### 5 3 #### [facility] [address] [place] [address], [facility] PLAT CNT 249 10*3/uL Normal 150-400 The [facility] Comment on above: Performed By: #### 5 102 #### [facility] [address] [place] [id number], [facility] RBC (Bld) [#/Vol] 4.43 10*6/uL Normal 4.20-5.70 The [facility] Comment on above: Performed By: #### 102 #### [facility] [address] [place] [address], [facility] WBC (Bld) [#/Vol] 6.74 10*3/uL Normal 4.00-10.60 The [facility] Comment on above: Performed By: #### 5 0103 #### [facility] [address] [place] [address], [facility] Cardiovascular Lab Reporton 05-16-2021 Cardiovascular Lab Report [facility] Patient Name: Radha Pitts [facility] MR #: [id number] Physician: Aren Sparrow MD Department of Service Date: 05/16/2021 Medicine Birthdate: 1950 Division of Room #: CC Cardiology Adult Cardiovascular Services [facility] [address] [place], [place] [address] Cardiovascular Laboratory Report DIRECT CARDIOVERSION PROCEDURE NOTE Date: 05/16/2021. Type of procedure: DC Cardioversion. Performed by: Aren Sparrow MD. Informed consent: Signed by patient. Indication: Afib. Preparation and technique: 71-year-old gentleman who was seen by Jazmyn Patel in the [facility] who had a previous cardioversion in 2019 [...] Sparrow MD Date Trans: 05/16/2021 03:42 P/alicia [id number] Normal [facility] CNOVon 11-23-2020 CNOV Office Visit (UROLMN ) RADHA PITTS ([id number]) 1950 M Date Time Provider Department 11/23/20 2:00 PM WEIGHT, COLE MARKO During your visit today, we recorded the following information about you: Rula Allen APRN.CODING EDUCATOR 11/23/2020 9:19 PM Signed No show Referring Provider: VALENTINE THURMAN [[id number]] Allergies As of Date: 11/23/2020 Noted Allergy [...] List As Of Date 11/23/2020 Noted 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 [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.01] 06/01/2020 Atrial fibrillation (HCC) [I48.91] 06/01/2020 Encounter Status:Closed by RULA ALLEN on 11/23/20 [facility] CNOVSPon 11-12-2020 CNOVSP Visit (SP) Office (HEMASA) RADHA PITTS ([id number]) 1950 M Date Time Provider Department 11/12/20 9:00 AM VALENTINE THURMAN During your visit today, we recorded the following information about you: Temperature Pulse Respiration Blood pressure 97.3 degrees 70/minute 16/minute 476/92 Weight Height 94.3 kg 1.702 m Valentine Thurman MD 11/12/2020 9:25 AM Signed PATIENT NAME: Radha Pitts CLINIC NO.: [id number] ATTENDING PHYSICIAN: Valentine Thurman MD DATE OF SERVICE: November 12, [address] Valentine Thurman [address] [place] [address] here is an update on a follow up visit on male Radha Pitts at the clinic 11/12/2020 Diagnosis: 1. Bladder cancer s/p TURBT and BCG ( Last BCG 2014) Treatment History: HPI: Radha Pitts is a 70 year old year [...] BASOP, ABSBASO PATH: Imaging: Assessment and Plan: Radha Pitts is a 70 year old year old male here for follow up. 1. Bladder cancer- Arrange for referral for surveillance 2. Afib- FU anticoag clinic for coumadin 3. See us as needed Thank you for the kind referral. If there are any questions and or concerns please do not hesitate to contact me at [phone]. Valentine Thurman MD Hematology/Medical Oncology [facility] 15 I spent a total of 15 minutes on the date of the service which included preparing to see the patient, [id number] patient care, completing clinical documentation, obtaining and/or reviewing separately obtained history and ordering medications, tests, or procedures. Medical Decision Making CC: Referring Provider: VALENTINE THURMAN [[id number]] Allergies As of Date: 11/12/2020 Noted Allergy Reaction CLINDAMYCIN PHOSPHATE 12/12/2018 7 - Swelling Date Reviewed: 11/12/2020 Reviewed by: Praveena Pritchard MA - Fully Assessed Reason for Visit: A-fib [167] Cmt: 5 month follow up Primary Visit Diagnosis:Malignant neoplasm of urinary bladder, unspecified site (HCC) [C67.9] Other Visit Diagnosis (more content not included)... Normal [facility] Noni 11-12-2020 CNPN Telephone (NCCAP) RADHA PITTS ([id number]) 1950 M Date Time Provider Department 11/12/20 [facility] During your visit today, we recorded the following information about you: Stacie Aaron Sec 11/12/2020 1:11 PM Signed Patient is seeing Dr. Ray wilcox [facility] in [place]. appt on 12-02-20 1:10pm [facility]. Diya, Please fax his records with the info in your mailbox. Thank you Julia Francis [facility] 11/15/2020 10:30 AM Signed Records faxed. 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 Comment on above: Performed By: #### L AB064 ####[place] [phone] Calcium [Mass/Vol] 9.7 mg/dL Normal 8.5-10.5 [facility] Comment on above: Performed By: #### L AB064 ####[facility] [place] [phone] Chloride [Moles/Vol] 100 mmol/L Normal 96-110 [facility] Comment on above: Performed By: #### L AB064 ####[place] [phone] CO2 [Moles/Vol] 24 mmol/L Normal 19-32 [facility] Comment on above: Performed By: #### L AB064 ####[place] [phone] Creatinine [Mass/Vol] 0.6 mg/dL Normal 0.5-1.4 [facility] Comment on above: Performed By: #### L AB064 ####[place] [phone] GFR/1.73 sq M.predicted MDRD (S/P/Bld) [Vol rate/Area] 103 ML/MIN/1.73M2 Normal [facility] Comment on above: Result Comment: IF THE PATIENT IS , PLEASE MULTIPLY THIS BY 1.159. THIS RESULT HAS BEEN CALCULATED ASSUMING THE PATIENT IS NON- Performed By: #### L AB064 ####[place] [phone] Glucose [Mass/Vol] 127 mg/dL High 70-99 [facility] Comment on above: Performed By: #### L AB064 ####[place] [phone] Potassium [Moles/Vol] 4.4 mmol/L Normal 3.4-5.3 [facility] Comment on above: Performed By: #### L AB064 ####[place] [phone] Sodium [Moles/Vol] 139 mmol/L Normal 135-148 [facility] Comment on above: Performed By: #### L AB064 ####[place] [phone] Urea nitrogen [Mass/Vol] 15 mg/dL Normal 3-29 [facility] Comment on above: Performed By: #### L AB064 ####[place] [phone] Urea nitrogen/Creatinine [Mass ratio] 25 (CALC) Normal 7.0-25.0 [facility] Comment on above: Performed By: #### L AB064 ####[place] [phone] EKG Standardon 07-31-2019 EKG Standard Ventricular Rate: 65 BPM Atrial Rate: 65 BPM P-R Interval: 184 ms QRS Duration: 106 ms Q-T Interval: 424 ms QTC Calculation(Bazett): 440 ms Calculated P [place]: 49 degrees Calculated R [place]: 27 degrees Calculated T [place]: 53 degrees Diagnosis: Sinus rhythm with premature supraventricular complexes and with occasional premature ventricular complexes Incomplete right bundle branch block Nonspecific T wave abnormality Abnormal ECG Normal [facility] EKG Standard Ventricular Rate: 84 BPM Atrial Rate: 288 BPM QRS Duration: 98 ms Q-T Interval: 376 ms QTC Calculation(Bazett): 444 ms Calculated R [place]: 36 degrees Calculated T [place]: 61 degrees Diagnosis: Atrial fibrillation Nonspecific T wave abnormality Abnormal ECG Normal [facility] PROTHROMBIN TIMEon 0 INR Coag (PPP) [Relative time] 1.6 {INR} High 0.9-1.1 [facility] Comment on above: Result Comment: MODERATE-INTENSITY WARFARIN THERAPY: 2.0-3.0 HIGHER-INTENSITY WARFARIN THERAPY: 3.0-4.0 Performed By: #### L AB119 #### [place] [address] PT Coag (PPP) [Time] 18.5 s High 11.7-13.9 [facility] Comment on above: Performed By: #### L AB119 #### [place] [address] ACCUCHECK GLUCOSEon 12-07-19 19 Glucose [Mass/Vol] 198 mg/dL High 70-99 [facility] Comment on above: Result Comment: NURS E AWARE Performed By: #### L AB119 #### [place] [address] BASIC METABOLIC PANELon 060 Anion gap [Moles/Vol] 11 mmol/L Normal 5-15 [facility] Comment on above: Performed By: #### L AB119 #### [place] [address] Calcium [Mass/Vol] 8.8 mg/dL Normal 8.5-10.5 [facility] Comment on above: Performed By: #### L AB119 #### [place] [address] Chloride [Moles/Vol] 97 mmol/L Normal 96-110 [facility] Comment on above: Performed By: #### L AB119 #### [place] [address] CO2 [Moles/Vol] 31 mmol/L Normal 19-32 [facility] Comment on above: Performed By: #### L AB119 #### [place] [address] Creatinine [Mass/Vol] 0.6 mg/dL Normal 0.5-1.4 [facility] Comment on above: Performed By: #### L AB119 #### [place] [address] GFR/1.73 sq M.predicted MDRD (S/P/Bld) [Vol rate/Area] 104 ML/MIN/1.73M2 Normal [facility] Comment on above: Result Comment: IF THE PATIENT IS , PLEASE MULTIPLY THIS BY 1.159. THIS RESULT HAS BEEN CALCULATED ASSUMING THE PATIENT IS NON- Performed By: #### L AB119 #### [place] [address] Glucose [Mass/Vol] 170 mg/dL High 70-99 [facility] Comment on above: Performed By: #### L AB119 #### [place] [address] Potassium [Moles/Vol] 4.1 mmol/L Normal 3.4-5.3 [facility] Comment on above: Performed By: #### L AB119 #### [place] [address] Sodium [Moles/Vol] 139 mmol/L Normal 135-148 [facility] Comment on above: Performed By: #### L AB119 #### [place] [address] Urea nitrogen [Mass/Vol] 8 mg/dL Normal 3-29 [facility] Comment on above: Performed By: #### L AB119 #### [place] [address] Urea nitrogen/Creatinine [Mass ratio] 13 (CALC) Normal 7.0-25.0 [facility] Comment on above: Performed By: #### L [id number] #### [place] [address] COMPLETE BLOOD COUNTon 12-06 Erythrocyte distribution width (RBC) [Ratio] 12.8 % Normal 9.0-15.0 [facility] Comment on above: Performed By: #### L [id number] #### [place] [address] Hematocrit (Bld) [Volume fraction] 40.4 % Low 41.0-50.0 [facility] Comment on above: Performed By: #### L [id number] #### [place] [address] Hemoglobin (Bld) [Mass/Vol] 13.9 g/dL Normal 13.8-17.2 [facility] Comment on above: Performed By: #### L [id number] #### [place] [address] MCH (RBC) [Entitic mass] 32.2 pg Normal 27.0-33.0 [facility] Comment on above: Performed By: #### L [id number] #### [place] [address] MCHC (RBC) [Mass/Vol] 34.4 g/dL Normal 32.0-36.0 [facility] Comment on above: Performed By: #### L [id number] #### [place] [address] MCV (RBC) [Entitic vol] 93.5 fL Normal 80.0-100.0 [facility] Comment on above: Performed By: #### L [id number] #### [place] [address] Platelets (Bld) [#/Vol] 264 10*3/uL Normal 130-400 [facility] Comment on above: Performed By: #### L [id number] #### [place] [address] RBC (Bld) [#/Vol] 4.32 M/MM3 Low 4.40-5.80 [facility] Comment on above: Performed By: #### L [id number] #### [place] [address] WBC (Bld) [#/Vol] 9.1 10*3/uL Normal 3.8-10.8 [facility] Comment on above: Performed By: #### L [id number] #### [place] [address] PROTHROMBIN TIMEon 9 INR Coag (PPP) [Relative time] 2.2 {INR} High 0.9-1.1 [facility] Comment on above: Result Comment: MODERATE-INTENSITY WARFARIN THERAPY: 2.0-3.0 HIGHER-INTENSITY WARFARIN THERAPY: 3.0-4.0 Performed By: #### L [id number] #### [place] [address] PT Coag (PPP) [Time] 23.5 s High 11.7-13.9 [facility] Comment on above: Performed By: #### L [id number] #### [place] [address] ACCUCHECK GLUCOSEon 12-06-19 19 Glucose [Mass/Vol] 293 mg/dL High 70-99 [facility] Comment on above: Result Comment: NURS E AWARE Performed By: #### L [id number] #### [place] [address] Glucose [Mass/Vol] 131 mg/dL High 7099 [facility] Comment on above: Result Comment: NURS E AWARE Performed By: #### L [id number] #### [place] [address] Glucose [Mass/Vol] 311 mg/dL High [address] [place] [address] Comment on above: Result Comment: NURS E AWARE Performed By: #### L [id number] #### [place] [address] Glucose [Mass/Vol] 169 mg/dL High [address] Comment on above: Performed By: #### L [id number] #### [place] [address] Glucose [Mass/Vol] 243 mg/dL High [address] Comment on above: Result Comment: NURS E AWARE Performed By: #### L [id number] #### [place] [address] BASIC METABOLIC PANELon 06-0 Anion gap [Moles/Vol] 10 mmol/L Normal 5-15 [facility] Comment on above: Performed By: #### L [id number] #### [place] [address] Calcium [Mass/Vol] 8.8 mg/dL Normal 8.5-10.5 [facility] Comment on above: Performed By: #### L [id number] #### [place] [address] Chloride [Moles/Vol] 100 mmol/L Normal 96-110 [facility] Comment on above: Performed By: #### L [id number] #### [place] [address] CO2 [Moles/Vol] 29 mmol/L Normal 19-32 [facility] Comment on above: Performed By: #### L [id number] #### [place] [address] Creatinine [Mass/Vol] 0.6 mg/dL Normal 0.5-1.4 [facility] Comment on above: Performed By: #### L [id number] #### [place] [address] GFR/1.73 sq M.predicted MDRD (S/P/Bld) [Vol rate/Area] 104 ML/MIN/1.73M2 Normal [facility] Comment on above: Result Comment: IF THE PATIENT IS , PLEASE MULTIPLY THIS BY 1.159. THIS RESULT HAS BEEN CALCULATED ASSUMING THE PATIENT IS NON- Performed By: #### L AB064 #### [place] [address] Glucose [Mass/Vol] 222 mg/dL High 70-99 [facility] Comment on above: Performed By: #### L [id number] #### [place] [address] Potassium [Moles/Vol] 4.1 mmol/L Normal 3.4-5.3 [facility] Comment on above: Performed By: #### L [id number] #### [place] [address] Sodium [Moles/Vol] 139 mmol/L Normal 135-148 [facility] Comment on above: Performed By: #### L [id number] #### [place] [address] Urea nitrogen [Mass/Vol] 14 mg/dL Normal 3-29 [facility] Comment on above: Performed By: #### L [id number] #### [place] [address] Urea nitrogen/Creatinine [Mass ratio] 25 (CALC) Normal 7.0-25.0 [facility] Comment on above: Performed By: #### L [id number] #### [place] [id number] Anion gap [Moles/Vol] 10 mmol/L Normal 5-15 [facility] Comment on above: Performed By: #### L [id number] #### [place] [id number] Calcium [Mass/Vol] 9.3 mg/dL Normal 8.5-10.5 [facility] Comment on above: Performed By: #### L AB064 #### [place] [address] Chloride [Moles/Vol] 98 mmol/L Normal 96-110 [facility] Comment on above: Performed By: #### L AB064 #### [place] [address] CO2 [Moles/Vol] 29 mmol/L Normal 19-32 [facility] Comment on above: Performed By: #### L AB064 #### [place] [address] Creatinine [Mass/Vol] 0.6 mg/dL Normal 0.5-1.4 [facility] Comment on above: Performed By: #### L AB064 #### [place] [id number] GFR/1.73 sq M.predicted MDRD (S/P/Bld) [Vol rate/Area] 104 ML/MIN/1.73M2 Normal [facility] Comment on above: Result Comment: IF THE PATIENT IS , PLEASE MULTIPLY THIS BY 1.159. THIS RESULT HAS BEEN CALCULATED ASSUMING THE PATIENT IS NON- Performed By: #### L AB064 #### [place] [id number] Glucose [Mass/Vol] 193 mg/dL High 70-99 [facility] Comment on above: Performed By: #### L AB064 #### [place] [id number] Potassium [Moles/Vol] 5.0 mmol/L Normal 3.4-5.3 [facility] Comment on above: Performed By: #### L AB064 #### [place] [id number] Sodium [Moles/Vol] 137 mmol/L Normal 135-148 [facility] Comment on above: Performed By: #### L AB064 #### [place] [id number] Urea nitrogen [Mass/Vol] 13 mg/dL Normal 3-29 [facility] Comment on above: Performed By: #### L [id number] #### [place] [id number] Urea nitrogen/Creatinine [Mass ratio] 23 (CALC) Normal 7.0-25.0 [facility] Comment on above: Performed By: #### L [id number] #### [place] [id number] COMPLETE BLOOD COUNTon 12-05 Erythrocyte distribution width (RBC) [Ratio] 13.0 % Normal 9.0-15.0 [facility] Comment on above: Performed By: #### L [id number] #### [place] [address] Hematocrit (Bld) [Volume fraction] 40.7 % Low 41.0-50.0 [facility] Comment on above: Performed By: #### L AB118 #### [place] [address] Hemoglobin (Bld) [Mass/Vol] 13.6 g/dL Low 13.8-17.2 [facility] Comment on above: Performed By: #### L [id number] #### [place] [address] MCH (RBC) [Entitic mass] 31.1 pg Normal 27.0-33.0 [facility] Comment on above: Performed By: #### L AB118 #### [place] [address] MCHC (RBC) [Mass/Vol] 33.4 g/dL Normal 32.0-36.0 [facility] Comment on above: Performed By: #### L [id number] #### [place] [address] MCV (RBC) [Entitic vol] 93.3 fL Normal 80.0-100.0 [facility] Comment on above: Performed By: #### L AB118 #### [place] [address] Platelets (Bld) [#/Vol] 260 10*3/uL Normal 130-400 [facility] Comment on above: Performed By: #### L AB118 #### [place] [address] RBC (Bld) [#/Vol] 4.36 M/MM3 Low 4.40-5.80 [facility] Comment on above: Performed By: #### L AB118 #### [place] [address] WBC (Bld) [#/Vol] 8.4 10*3/uL Normal 3.8-10.8 [facility] Comment on above: Performed By: #### L AB118 #### [place] [address] COMPLETE BLOOD COUNT WITH DI FFERENTIALon 12-05-2018 ABSOLUTE BASOPHIL 0.0 K/MM3 Normal 0.0-0.3 [facility] Comment on above: Performed By: #### L [id number] #### [place] [address] ABSOLUTE SEGMENTED NEUTROPHIL 6.8 K/MM3 Normal 1.5-7.8 [facility] Comment on above: Performed By: #### L [id number] #### [place] [address] Basophils/100 WBC (Bld) 0.3 % Normal 0.0-2.0 [facility] Comment on above: Performed By: #### L AB119 #### [place] [address] Eosinophils (Bld) [#/Vol] 0.2 10*3/uL Normal 0.0-0.6 [facility] Comment on above: Performed By: #### L AB119 #### [place] [address] Eosinophils/100 WBC (Bld) 2.7 % Normal 0.0-7.0 [facility] Comment on above: Performed By: #### L [id number] #### [place] [address] Erythrocyte distribution width (RBC) [Ratio] 13.0 % Normal 9.0-15.0 [facility] Comment on above: Performed By: #### L [id number] #### [place] [address] Hematocrit (Bld) [Volume fraction] 42.7 % Normal 41.0-50.0 [facility] Comment on above: Performed By: #### L AB119 #### [place] [address] Hemoglobin (Bld) [Mass/Vol] 14.4 g/dL Normal 13.8-17.2 [facility] Comment on above: Performed By: #### L AB119 #### [place] [id number] Lymphocytes (Bld) [#/Vol] 1.0 10*3/uL Normal 0.9-4.1 [facility] Comment on above: Performed By: #### L [id number] #### [place] [id number] Lymphocytes/100 WBC (Bld) 11.5 % Low 14.0-51.0 [facility] Comment on above: Performed By: #### L [id number] #### [place] [id number] MCH (RBC) [Entitic mass] 31.8 pg Normal 27.0-33.0 [facility] Comment on above: Performed By: #### L [id number] #### [place] [id number] MCHC (RBC) [Mass/Vol] 33.8 g/dL Normal 32.0-36.0 [facility] Comment on above: Performed By: #### L [id number] #### [place] [address] MCV (RBC) [Entitic vol] 94.0 fL Normal 80.0-100.0 [facility] Comment on above: Performed By: #### L AB119 #### [facility] [address] [place] [address] Monocytes (Bld) [#/Vol] 0.6 10*3/uL Normal 0.2-1.1 [facility] Comment on above: Performed By: #### L AB119 #### [place] [address] Monocytes/100 WBC (Bld) 7.3 % Normal 0-14.0 [facility] Comment on above: Performed By: #### L AB119 #### [place] [address] Platelets (Bld) [#/Vol] 265 10*3/uL Normal 130-400 [facility] Comment on above: Performed By: #### L [id number] #### [place] [address] RBC (Bld) [#/Vol] 4.54 M/MM3 Normal 4.40-5.80 [facility] Comment on above: Performed By: #### L [id number] #### [place] [address] Segmented neutrophils/100 WBC (Bld) 78.2 % High 40.0-76.0 [facility] Comment on above: Performed By: #### L AB119 #### [place] [address] WBC (Bld) [#/Vol] 8.7 10*3/uL Normal 3.8-10.8 [facility] Comment on above: Performed By: #### L [id number] #### [place] [address] CT EXTREMITY LOWER RIGHT WIT HOUT CONTRASTon [...] IDENTIFIED. DICTATED BY: DAREN MORTENSEN M.D. Workstation ID:[id number] cellultis Normal [facility] HEMOGLOBIN A1Con 12-05-2018 HbA1c (Bld) [Mass fraction] 177 MG/DL Normal [facility] Comment on above: Performed By: #### L [id number] #### [place] [address] HbA1c (Bld) [Mass fraction] [facility] [place] Normal [facility] Comment on above: Performed By: #### L [id number] #### [place] [address] HbA1c (Bld) [Mass fraction] 7.8 % TOTAL HGB High [facility] Comment on above: Result Comment: (NOT E) The [place] [employer] recommends the following guidelines: 5.7-6.4% Indicates increased risk for diabetes (Prediabetes). > 6.5% Diagnostic of diabetes. In the absence of unequivocal hyperglycemia, results should be confirmed by repeat test. < 7% Glycemic recommendation for non adults with diabetes. [place] [employer], Standards of Medical Care in Diabetes, Volume 40; 2017 Performed By: #### L AB119 #### [place] [address] PROTHROMBIN TIMEon 9 INR Coag (PPP) [Relative time] 3.5 {INR} High 0.9-1.1 [facility] Comment on above: Result Comment: MODERATE-INTENSITY WARFARIN THERAPY: 2.0-3.0 HIGHER-INTENSITY WARFARIN THERAPY: 3.0-4.0 Performed By: #### L [id number] #### [place] [address] PT Coag (PPP) [Time] 33.7 s High 11.7-13.9 [facility] Comment on above: Performed By: #### L [id number] #### [place] [address] INR Coag (PPP) [Relative time] 3.7 {INR} High 0.9-1.1 [facility] Comment on above: Result Comment: MODERATE-INTENSITY WARFARIN THERAPY: 2.0-3.0 HIGHER-INTENSITY WARFARIN THERAPY: 3.0-4.0 Performed By: #### L [id number] #### [place] [address] PT Coag (PPP) [Time] 35.6 s High 11.7-13.9 [facility] Comment on above: Performed By: #### L [id number] #### [place] [address] XR FOOT RIGHT MINIMUM 3 VIEW Son [...] REMOVED. DICTATED BY: DAREN MORTENSEN M.D. Workstation ID:[id number] Pt is c/o stepping on a insulin needle on Sunday and it was removed here. Pt was placed on antibiotic. Pt is now complaining of pain and swelling to the bottom of his right foot. Pt has redness going up his leg Normal [facility] XR FOOT RIGHT MINIMUM 3 VIEW [...] THE MEDIAL GREAT TOE. DICTATED BY: DAREN MORTENSEN M.D. Workstation ID:[id number] Pt arrived to ER c/o right foot pain . Pt states bottom of foot is painful and has been for a couple of days. Pt states pain with palpation. Denies injury. Normal [facility] Encounters Encounter Date Encounter Type Care Provider Facility Start: 11-25-2024 End: 11-25-2024 Emergency department patient visit [facility] Start: 10-23-2024 End: 10-23-2024 ambulatory [facility] Start: 09-17-2024 Evaluation and management of inpatient [facility] Start: 09-17-2024 ambulatory [facility] Start: 09-17-2024 End: 09-18-2024 Evaluation and management of inpatient [facility] Start: 09-08-2024 End: 09-08-2024 Emergency department patient visit [facility] Start: 09-01-2024 End: 09-01-2024 Emergency department patient visit [facility] Start: 06-18-2024 End: 06-18-2024 ambulatory Abelardo MATTA Facility:[facility] Start: 06-18-2024 End: 06-18-2024 Patient encounter procedure Abelardo BULLL [facility] Start: 06-17-2024 End: 06-17-2024 ambulatory [facility] Start: 06-03-2024 End: 06-03-2024 ambulatory Abelardo R NILL Facility:[facility] Start: 06-03-2024 End: 06-03-2024 Patient encounter procedure Abelardo R NILL [facility] Start: 04-22-2024 End: 04-22-2024 ambulatory [facility] Start: 12-07-2023 ambulatory Abelardo NILL [facility] Start: 11-21-2022 ambulatory NARENDRANATH LAKSHMIPATHY . Facility:[facility] Start: 11-07-2022 End: 11-07-2022 ambulatory NARENDRANATH LAKSHMIPATHY . Facility:[facility] Start: 11-01-2022 End: 11-02-2022 ambulatory NARENDRANATH LAKSHMIPATHY . Facility:[facility] Start: 10-30-2022 End: 11-29-2022 ambulatory ONTIVEROS H FAWWAD Facility:[facility] Start: 10-23-2022 End: 10-24-2022 ambulatory MOHAMABlanqutia SINGLETONTHANI Facility:[facility] Start: 10-17-2022 End: 10-18-2022 ambulatory NARENDRANATH [...] 03-02-2022 End: 04-01-2022 ambulatory ONTIVEROS H FAWWAD Facility: Start: 02-02-2022 End: 02-03-2022 ambulatory DIANA ISAI . Facility: Start: 01-30-2022 End: 03-01-2022 ambulatory SHAIKH Brittany PARK Facility:[facility] Start: 01-17-2022 End: 01-17-[address] PHILIP DA SILVA . Facility: Start: 2022 Encounter for preprocedural laboratory examination DR VARSHA RANDHAWA . [facility] Start: 01-12-2022 End: [address] VARSHA RANDHAWA . Facility: Start: 01-12-2022 End: 2022 Encounter for preprocedural laboratory examination DR VARSHA RANDHAWA . Facility: Start: 01-02-2022 End: 01-27-2022 ambulatory ONTIVEROSDELMY SKINNERBlanquita Facility: Start: 06-07-2021 End: 06-11-2021 ambulatory PHYSICIAN UNKNOWN Facility:[facility] Start: 05-16-2021 End: 05-17-2021 ambulatory PHYSICIAN UNKNOWN Facility:[facility] Start: 04-18-2021 End: 04-19-2021 ambulatory BENJAMIN JORGE Facility:[facility] Start: 05-24-2020 End: 05-24-2020 Chart abstracting Valentine Thurman Work Phone: Hematology/Oncology Start: 05-24-2020 End: 05-24-2020 Patient encounter procedure External Provider [facility] Start: 05-24-2020 Results Only External Provider Exter nal-Non[facility]F Procedures Date Procedure Procedure Detail Performing Clinician Start: 05-24-2020 EXTERNAL LAB External P rovider Start: 05-24-2020 EXTERNAL PROCEDURE Exte rnal Provider Cardiac ablation usi ng fluoroscopy guidance Abelardo MATTA Tonsillectomy Abelardo MATTA Transurethral resect ion of bladder neoplasm Abelardo MATTA Vasectomy Abelardo MATTA Plan of Treatment Date Care Activity Detail Author Start: 03-02-2020 Influenza vaccination INFLUENZA (#1) [facility] Start: 01-06-2019 Urine microalbumin profile DTAP,TDAP ,TD (2 - Td) [facility] Start: 03-13-2017 PNEUMOVAX AGE 65 AND OVER WITH 5YR LOOKBACK (#1) PNEUMOVAX AGE 65 AND OVER WITH 5YR LOOKBACK (#1) [facility] Start: 01-14-2016 ADVANCE DIRECTIVE DISCUSSION ADVANCE DIRECTIVE DISCUSSION [facility] Start: 2001 COLORECTAL CANCER SCREENING,SEE MODIFIER COLORECTAL CANCER SCREENING,SEE MODIFIER [facility] Start: 2001 SHINGRIX VACCINE (1 of 2) BROWN GRIX VACCINE (1 of 2) [facility] Start: 01-14-1996 DIABETES SCREEN DIABETES SCREEN [facility] Start: 1986 LIPID SCREEN LIPID SCREEN [facility] Start: 1969 HEPATITIS C SCREENING HEPATITIS C [place] [facility] Immunizations Immunization Date Immunization Notes Care Provider June maloney 05-20-2019 influenza, high dose seasonal, preservative-free External Provider [facility] 01-08-2019 pneumococcal conjuga te vaccine, 13 valent External Provider [facility] 04-09-2018 influenza, high dose seasonal, preservative-free External Provider [facility] 04-18-2013 influenza, injectabl e, quadrivalent, contains preservative External Provider [facility] 06-22-2012 influenza, injectabl e, quadrivalent, contains preservative External Provider [facility] 03-13-2012 influenza, injectabl e, quadrivalent, contains preservative External Provider [facility] 03-13-2012 pneumococcal polysaccharide vaccine, 23 valent External Provider [facility] 03-13-2012 pneumococcal vaccine , unspecified formulation External Provider [facility] 01-06-2009 tetanus toxoid, redu leticia diphtheria toxoid, and acellular pertussis vaccine, adsorbed External Provider [facility] Payers Date Payer Category Payer Medicare HU[employer]NA MEDICARE HU[employer] MEDICARE PPO [id number] 2019-Present PPO [id number] 1959 Private Health Insurance [id number] 1951 Unknown [id number] 2.16.840.1.911271.3.579.2 .647 1951 Unknown [id number] 2.16.840.1.052432.3.579.2 .647 1951 Unknown [id number] 2.16.840.1.077011.3.579.2 .647 1951 Unknown [id number] 2.16.840.1.150292.3.579.2 .593 1951 Unknown [id number] 2.16.840.1.412492.3.579.2 .593 1951 Unknown [id number] 2.16.840.1.219738.3.579.2 .59 1951 Unknown [id number] 2.16.840.1.674425.3.579.2 .593 1951 Unknown [id number] 2.16.840.1.061684.3.579.2 .59 1951 Unknown [id number] 2.16.840.1.521817.3.579.2 .593 1951 Unknown [id number] 2.16.840.1.338236.3.579.2 .593 1951 Unknown [id number] 2.16.840.1.683879.3.579.2 .593 1951 Unknown [id number] 2.16.840.1.103478.3.579.2 .59 1951 Unknown [id number] 2.16.840.1.769206.3.579.2 .593 1951 Unknown [id number] 2.16.840.1.243887.3.579.2 .593 1951 Unknown [id number] 2.16.840.1.433468.3.579.2 .593 1951 Unknown [id number] 2.16.840.1.075044.3.579.2 .593 1951 Unknown [id number] 2.16.840.1.435805.3.579.2 .593 1951 Unknown [id number] 2.16.840.1.446754.3.579.2 .593 1951 Unknown [id number] 2.16.840.1.501039.3.579.2 .593 1951 Unknown [id number] 2.16.840.1.245678.3.579.2 .593 1951 Unknown [id number] 2.16.840.1.102021.3.579.2 .593 1951 Unknown [id number] 2.16.840.1.867743.3.579.2 .593 1951 Unknown [id number] 2.16.840.1.828050.3.579.2 .593 1951 Unknown [id number] 2.16.840.1.708715.3.579.2 .593 1951 Unknown [id number] 2.16.840.1.962715.3.579.2 .593 1951 Unknown [id number] 2.16.840.1.974626.3.579.2 .727 1951 Unknown [id number] 2.16.840.1.300966.3.579.2 .727 1951 Unknown [id number] 2.16.840.1.497624.3.579.2 .1286 1951 Unknown [id number] 2.16.840.1.299271.3.579.2 .1286 1951 Unknown [id number] 2.16.840.1.731015.3.579.2 .1286 Social History Date Type Detail Facility Start: 05-24-[facility] Start: 05-24-2020 Tobacco use and exposure Never used [facility] Sex Assigned At Not on file [facility] Exposure to SARS-CoV -2 (event) Unable to assess [facility] Tobacco smoking status No Smokin g Status Entered [facility] [employer] Sex Assigned At Male [facility] Clinical Notes 11-12-2020 to 10-23-2024 Note Date & Type Note Facility 10-23-2024 Note Cardiovascular Medic ine [facility] SUBJECTIVE Chief Complaint Patient presents with Atrial Fibrillation Hypertension Hyperlipidemia Radha Pitts is a 74 y.o. male here for follow-up. HPI PMHx: PAF s/p ablation 09/17/2024, CAD, HFrEF, hyperlipidemia, hypertension, DM type II 10/23/2024 He has been feeling well since his recent a.fib abltion procedure. He did have some right groin bruising that has almost resolved. Beginning of August he was in the ER for uncontrolled HTN. BP at home has been running higher, 150s/80s. Denies c/o CP, dyspnea, orthopnea, PND, LE edema, dizziness/LH, palpitations, syncope. 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 Social History Tobacco Use Smoking status: Former Current packs/day: 0.00 Average packs/day: 1 pack/day for 20.0 years (20.0 ttl pk-yrs) Types: Cigarettes Start date: 1963 Quit date: 1983 Years since quittin.3 Smokeless tobacco: Never Vaping Use Vaping status: Never Used Substance Use Topics Alcohol use: Not Currently Comment: occasional Drug use: Not Currently Allergies Allergen Reactions Clindamycin Phosphate Swelling DENIED ROS Musculoskeletal: Positive for back pain and joint pain. All other systems reviewed and are negative. OBJECTIVE Visit Vitals BP 152/86 (BP Location: Left arm, Patient Position: Sitting) Pulse 57 Ht 1.702 m (5' 7 ) Wt 81.2 kg (179 lb) SpO2 98% BMI 28.04 kg/m??? Smoking Status Former BSA 1.96 m??? Medications: Current Outpatient Medications: amiodarone (Pacerone) 200 mg tablet, Take 1 tablet (200 mg) by mouth once daily as directed., Disp: 90 tablet, Rfl: 3 apixaban (Eliquis) 5 mg tablet, Take 1 tablet (5 mg) by mouth in the morning and at bedtime., Disp: 60 tablet, Rfl: 11 aspirin 81 mg chewable tablet, Chew 1 tablet every day by oral route., Disp: , Rfl: atorvastatin (Lipitor) 80 mg tablet, Take 1 tablet every day by oral route., Disp: , Rfl: empagliflozin (Jardiance) 25 mg, Take 25 mg by mouth in the morning., Disp: , Rfl: folic acid (Folvite) 1 mg tablet, TAKE ONE PILL BY MOUTH ON THE DAYS NOT TAKING THE METHOTREXATE., Disp: , Rfl: insulin NPH and regular human (NovoLIN) 100 unit/mL (70-30) injection, before breakfast and before evening meal. 24 units am, 12 units pm, Disp: , Rfl: lisinopril 2.5 mg tablet, Take 5 mg by mouth in the morning., Disp: , Rfl: metFORMIN (Glucophage) 1,000 mg tablet, Take 1 tablet twice a day by oral route for 90 days., Disp: , Rfl: methotrexate 2.5 mg tablet, TAKE 4 TABLETS BY MOUTH ONCE WEEKLY ON SUNDAY, Disp: , Rfl: metoprolol succinate XL (Toprol-XL) 25 mg 24 hr tablet, Take 25 mg by mouth in the morning. Do not crush or chew., Disp: , Rfl: multivitamin tablet, Take 1 tablet by mouth in the morning., Disp: , Rfl: Physical Exam Constitutional: Appearance: Normal appearance. He is normal weight. HENT: Head: Normocephalic and atraumatic. Right Ear: External ear normal. Left Ear: External ear normal. Eyes: Extraocular Movements: Extraocular movements intact. Pupils: Pupils are equal, round, and reactive to light. Neck: Vascular: No carotid bruit. Cardiovascular: Rate and Rhythm: Regular rhythm. Bradycardia present. Pulses: Normal pulses. Heart sounds: Normal heart sounds. Pulmonary: Effort: Pulmonary effort is normal. Breath sounds: Normal breath sounds. Abdominal: General: Bowel sounds are normal. Palpations: Abdomen is soft. Musculoskeletal: General: Normal range of motion. Cervical back: Neck supple. Right lower leg: No edema. Left lower leg: No edema. Skin: General: Skin is warm and dry. Neurological: General: No focal deficit present. Mental Status: He is alert and oriented to person, place, and time. Psychiatric: Mood and Affect: Mood normal. Behavior: Behavior normal. Thought Content: Thought content normal. Judgment: Judgment normal. Labs: No results found for: EXTCMP , BMPR1A , CBCDIF , BNP , LASAP , RED Admission on 09/17/2024, Discharged on (more content not included)... [facility] 10-23-2024 Note Patient here for [facility] afib ablation performed on 09/17/[address] Sparrow. Doing very well. Denies chest pain, SOB, palpitations, lightheadedness/syncope, and bleeding on Eliquis. Review of Systems Musculoskeletal: Positive for back pain and joint pain. All other systems reviewed and are negative. [facility] 09-17-2024 Note Patient: Radha Srinivasan er Procedure Summary Date: 09/17/24 Room / Location: [facility] / [facility] (Cath) Anesthesia Start: 1408 Anesthesia Stop: 175 Procedure: Ablation a-fib paroxysmal Diagnosis: Paroxysmal A-fib (CMS/HCC) (afib) Providers: Aren Sparrow MD Responsible Provider: Sterling Small MD Anesthesia Type: general ASA Status: 3 Anesthesia Type: general Vitals Value Taken Time BP 129/61 09/17/24 1806 Temp 35.9 ???C (96.6 ???F) 09/17/24 1754 Pulse 58 09/17/24 1805 Resp 11 09/17/24 1805 SpO2 100 % 09/17/24 1805 Vitals shown include unfiled device data. Anesthesia Post Evaluation Patient location during evaluation: PACU Patient participation: complete - patient participated Level of consciousness: awake and alert Pain score: 0 Pain management: adequate Multimodal analgesia pain management approach Airway patency: patent Two or more strategies used to mitigate risk of obstructive sleep apnea Cardiovascular status: hemodynamically stable Respiratory status: room air and nonlabored ventilation Hydration status: euvolemic Patient is hemodynamically stable and is able to be discharged from PACU per anesthesia protocol. There were no known notable events for this encounter. [facility] 09-17-2024 Note ATRIAL FIBRILLATION ABLATION PROCEDURE NOTE DATE OF PROCEDURE: 09/17/2024 PERFORMING PHYSICIAN: Dr. Aren Sparrow BROOD HATCHERY MANAGER: JHOAN CONSENT: Patient NAME OF THE PROCEDURE: Pulmonary Vein Isolation and Comprehensive EP study. INDICATIONS FOR PROCEDURE: 1. Persistent atrial fibrillation. FLUROSCOPY: 3.4min/ 40mGy. EBL: 15cc SPECIMEN REMOVED: None PROCEDURES PERFORMED: 1. Sonosite guided venous access as noted below and images stored in PACS. 2. Comprehensive EP study and catheter ablation for persistent atrial fibrillation through the pulmonary vein isolation technique. This includes right atrial recording and pacing, His bundle recording and right ventricular recording and pacing. 3. Intracardiac EP 3D mapping. 4. Intracardiac echocardiogram 5. Left atrial and coronary sinus recording and pacing to assess ablation results. 6. Left heart pressure measurements and LV pacing and recording. 7. Induction of arrhythmia and testing of ablation results using intravenous adenosine infusion. 8. Fluroscopy. PROCEDURE NOTE: On the day of presentation, he was noted to be in sinus and so WANDY was deferred. Risks, benefits and alternatives of the procedure were discussed with the patient and family who agreed to proceed. Please refer to my consult note for details of the discussion and of indications. The patient was prepped and draped following which four venous access was procured on right side as noted below. Ultrasound was used to determine the course and patency of the femoral veins on both sides and they were noted to be patent and the image stored in PACS. After infiltration with 1% lidocaine, 4 venous sheaths were placed in the right as noted below and a radial arterial line was placed by Anesthesia team. RFV: 8Fx3, [employer] ThermoCool SF Bi-Directional over SL1/ Vizigo, SL1: Octoray,, CS Catheter (EZ Steer). 9F: ICE catheter. Following venous access, heparin bolus was given followed by continuous intravenous drip to target ACT around 350. An intracardiac ultrasound catheter was inserted into the right atrium to examine the right atrial anatomy, atrial septum, pulmonary vein anatomy and to monitor for pericardial effusion and guide transseptal access. The LA and RA was significantly dilated. At baseline, there was no pericardial effusion and no KINA clot but noted a very prominent Coumadin ridge. Esophagus was mapped using the [employer] 3D mapping software and noted to be towards the middle. Transeptal access was procured with ICE guidance using a SL-1 sheath and Erna needle. Following this, Octoray, catheter was advanced and the multipolar mapping performed of the LA creating a geometry as well as bipolar voltage assessment was made which revealed LA voltage to be normal. After FAM geometry was performed, a 2nd transseptal was performed with an SL1 sheath using a Erna needle. Following transseptal, the SL1 sheath was removed and Vizigo sheath was advanced over which the ablation catheter ST-SF thermocol ablation catheter was advanced. Ablation was then performed. A cooling probe was advanced to cool middle of the LA to 4C. Ablation was performed using 40 chavez for 10-12s in the anterior LA and 5-8seconds in the posterior wall and roof area. After completion of the left sided WACA, no signals were noted in the LSPV or LIPV and entrance block was noted. After this, I proceeded to perform ablation of the right-sided vein. Following right WACA, the veins were isolated. I ensured that on the anterior aspect of right WACA and in jere area, phrenic capture was ruled out before any ablation was performed. AEST induced atrial flutter which terminated. Later patient went into Afib. Given significant LA scarring in all of left atrium, I decided to perform superior roof line ablation and inferior roof line ablation. Substrate modification was then performed in the posterior LA. LV pacing revealed no VA conduction. Adenosine was given and no reconnection noted. I then went over to the right atrium and performed CTI ablation. Using ICE, the His and IVC junctions were marked with 3D CARTO mapping software. ICE revealed a small subeustachian pouch. Vizigo sheath was lópez to the right side. Ablation was performed on the CTI line starting at the tricuspid valve aspect. 40W was utilized and I extended the ablation from the TV to the IVC aspect. I verified CTI block, the patient did have bidirectional block. Bidirectional block was noted with medial to lateral pacing with a timingof 179ms and 184ms. Differential pacing confirmed bidirectional block. EP study was then performed. Burst pacing from CS pacing down to 300ms was performed from proximal CS and no arrhythmia was noted. At this point, given there was no arrhythmia noted, the decision was made to stop the ablation. ICE imaging ensured there was no pericardial effusion and phrenic nerve capture was documented on fluoroscopy. The (more content not included)... [facility] 09-17-2024 Note Patient: Radha Srinivasan er Procedure Information Anesthesia Start Date/Time: 09/17/24 1414 Procedure: Ablation a-fib paroxysmal - PC APPROVED 07/09-08/08,ok to move per Location: [facility] EP / [facility] (Cath) Providers: Aren Sparrow MD Relevant Problems Anesthesia (-) History of anesthesia complications Cardio (+) Coronary artery disease involving coquille coronary artery of coquille heart without angina pectoris (+) Essential hypertension (+) Paroxysmal atrial fibrillation (CMS/HCC) Endo (+) Type 2 diabetes mellitus (CMS/HCC) Past Medical History: Diagnosis Date Afib (CMS/HCC) Cancer (CMS/HCC) bladder cancer Diabetes mellitus (CMS/HCC) Hyperlipidemia Hypertension Joint pain RT SHOULDER PAIN 09/01/24 ER VISIT Past Surgical History: Procedure Laterality Date BLADDER SURGERY COLONOSCOPY CYSTOSCOPY Social History Tobacco Use Smoking status: Former Current packs/day: 0.00 Average packs/day: 1 pack/day for 20.0 years (20.0 ttl pk-yrs) Types: Cigarettes Start date: 1963 Quit date: 1983 Years since quittin.2 Smokeless tobacco: Never Vaping Use Vaping status: Never Used Substance Use Topics Alcohol use: Not Currently Comment: occasional Drug use: Not Currently Labs Lab Results Component Value Date WBC 6.74 06/29/2021 HGB 14.5 06/29/2021 HCT 43.8 06/29/2021 PLT 249 06/29/2021 No results found for: NA , K , CO2 , CL , BUN , CREATININE , GLUCOSE , CALCIUM Lab Results Component Value Date PT 13.9 09/17/2024 INR 1.08 09/17/2024 No echocardiogram results found for the past 12 months Clinical information reviewed: Tobacco Allergies Meds Med Hx Surg Hx Physical Exam Airway Mallampati: III TM distance: >3 FB Neck ROM: full Cardiovascular Rhythm: irregular Rate: normal Dental Pulmonary Breath sounds clear to auscultation Abdominal Anesthesia Plan ASA 3 general (Patient chart (PMH/PSH/Social/Meds/Allergies/etc ) was reviewed prior to patient interview. Specifically discussed the risks of oral/airway instrumentation (if needed) including (but not limited to) lip, gum, and teeth trauma. This has the potential to cause significant dental damage including tooth loss. Patient expressed understanding and wished to proceed. Patient was interviewed and evaluated prior to the start of the anesthetic. Note was inputted later. ) intravenous induction Anesthetic plan and risks discussed with patient. Plan discussed with resident. Additional Equipment Requests [facility] 09-17-2024 Note Arterial Line: Date/Time: 09/17/2024 2:00 PM An arterial line was placed in the pre-op for the following indication(s): continuous blood pressure monitoring and blood sampling needed. A 20 G (size), 2 inch (length), Arrow (type) catheter was placed, Seldinger technique used , into the Left radial artery, secured by Biodisc/Biopatch, tape and Tegaderm. Events: patient tolerated procedure well with no complications. Medications Administered midazolam (VERSED) IV - intravenous 1 mg - 09/17/2024 2:00:00 PM lidocaine (XYLOCAINE) 1 % SubQ - infiltration 1 mL - 09/17/2024 2:00:00 PM Staffing Performed: resident/GAS MAIN AND LINE FITTER/CAA and anesthesiologist Anesthesiologist: Perry Chou MD Resident/GAS MAIN AND LINE FITTER: Guillaume Clements MD Performed by: Guillaume Clements MD Authorized by: Perry Chou MD [facility] 09-17-2024 Note Airway Date/Time: 09/17/2024 2:32 PM Urgency: elective Airway not difficult General Information and Staff Patient location during procedure: OR Anesthesiologist: Perry Chou MD Resident/GAS MAIN AND LINE FITTER/CAA: Guillaume Clements MD Performed: resident/GAS MAIN AND LINE FITTER/CAA Indications and Patient Condition Indications for airway management: anesthesia Spontaneous Ventilation: absent Sedation level: deep Preoxygenated: yes Mask difficulty assessment: 2 - vent by mask + OA or adjuvant +/- NMBA Final Airway Details Final airway type: endotracheal airway Successful airway: ETT Cuffed: yes Successful intubation technique: video laryngoscopy Facilitating devices/methods: intubating stylet and cricoid pressure Endotracheal tube insertion site: oral Blade: Cross Blade size: #3 ETT size (mm): 7.5 Cormack-Lehane Classification: grade I - full view of glottis Placement verified by: chest auscultation and capnometry Cuff volume (mL): 9 Measured from: lips ETT to lips (cm): 22 Number of attempts at approach: 1 Number of other approaches attempted: 0 [facility] 06-17-2024 Note [facility] Consult Note Reason for visit: afib 06/17/24 Pt here for Afib consent 04/22/24 Patient here for 6 mo follow up PAF, CAD, CHF, hyperlipidemia, and hypertension. He is feeling well. Did not feel symptoms when he was in Afib in the past. He reports walking 4 miles yesterday, and then went home to mow his grass. No functional complaints. He had routine labs w/ lipids in December 2023. Hasn't had CXR or PFT's yet, they are ordered. He checks his BP every day at home. Having trouble affording Eliquis. Denies chest pain, SOB, palpitations, and bleeding. Prior HPI: Radha Pitts is a 74 y.o. year old with past medical history of HTN/ DM2/ Persistent/? Permanent A-fib on amiodarone, metoprolol and warfarin, CAD, hypertension, hyperlipidemia. He was recently at [facility] in August 2021 for strokelike symptoms [...] Determinants of Health Tobacco Use: Medium Risk (11/21/2023) Patient History Smoking Tobacco Use: Former Smokeless Tobacco Use: Never Passive Exposure: Not on file Alcohol Use: Not on file Financial Resource Strain: Not on file Food Insecurity: No Food Insecurity (08/24/2022) Received from [facility] Hunger Screening Within the past 12 months we worried whether our food would run out before we got money to buy more.: Never True Within the past 12 months the food we bought just didn't last and we didn't have money to get more.: Never True Transportation Needs: Not on file Physical Activity: Not on file Stress: Not on file Social Connections: Not on file Intimate Partner Violence: Unknown (08/23/2023) [place] Safety & Environment Fear of Current or Ex-Partner: Not on file Emotionally Abused: Not on file Physically Abused: Not on file Sexually Abused: Not on file Physically or Sexually Abused: Not on file Depression: Not at risk (11/12/2020) [facility] from [facility], [facility] PHQ-2 PHQ-2 score: 0 Housing Stability: Low Risk (08/24/2022) Received from [facility], [facility], [facility] Housing Instability Are you worried or concerned that in the next two months you may not have stable housing that you own, rent or stay in as a part of a household?: No Utilities: Not on file Health Literacy: Not on file Allergies: Allergies Allergen Reactions Clindamycin Phosphate Swelling Weight: 82.6kg Visit Vitals BP 136/73 Pulse 59 Wt 82.6 kg (182 lb) SpO2 98% BMI 28.51 kg/m??? Smoking Status Former BSA 1.98 m??? Meds: Current Outpatient Medications on File [...] XL (Toprol-XL) 25 mg 24 hr tablet Take 25 mg by mouth in the morning. Do not crush or chew. multivitamin tablet Take 1 tablet by mouth in the morning. apixaban (Eliquis) 5 mg tablet Take 1 tablet (5 mg) by mouth in the morning and at bedtime. (Patient not taking: Reported on 06/17/2024) 60 tablet 11 empagliflozin (Jardiance) 10 mg Take 1 tablet every day by oral route for 30 days. (Patient not taking: Reported on 06/17/2024) 90 tablet 3 No current facility-administered medications on file prior to visit. ROS: Review of Systems HENT: Positive for hearing loss. Musculoskeletal: Positive for back pain and joint pain. All other systems reviewed and are negative. Physical Exam: Constitutional General Appearance: well-nourished, well-developed, appears stated age Level of Distress: comfortable Psychiatric Mental Status: alert, normal affect Orientation: oriented to time, place, (more content not included)... [facility] 04-22-2024 Note Patient here for 6 m o follow up PAF, CAD, CHF, hyperlipidemia, and hypertension. He had routine labs w/ lipids in December 2023. Hasn't had CXR or PFT's yet. He checks his BP every day at home. Having trouble affording Eliquis. Denies chest pain, SOB, palpitations, and bleeding. Review of Systems Musculoskeletal: Positive for back pain and joint pain. All other systems reviewed and are negative. [facility] 04-22-2024 Note [facility] Consult Note Reason for visit: afib 04/22/24 Patient here for 6 mo follow up PAF, CAD, CHF, hyperlipidemia, and hypertension. He is feeling well. Did not feel symptoms when he was in Afib in the past. He reports walking 4 miles yesterday, and then went home to mow his grass. No functional complaints. He had routine labs w/ lipids in December 2023. Hasn't had CXR or PFT's yet, they are ordered. He checks his BP every day at home. Having trouble affording Eliquis. Denies chest pain, SOB, palpitations, and bleeding. Prior HPI: Radha Pitts is a 74 y.o. year old with past medical history of HTN/ DM2/ Persistent/? Permanent A-fib on amiodarone, metoprolol and warfarin, CAD, hypertension, hyperlipidemia. He was recently at [facility] in August 2021 for strokelike symptoms [...] Determinants of Health Tobacco Use: Medium Risk (11/21/2023) Patient History Smoking Tobacco Use: Former Smokeless Tobacco Use: Never Passive Exposure: Not on file Alcohol Use: Not on file Financial Resource Strain: Not on file Food Insecurity: Not on file Transportation Needs: Not on file Physical Activity: Not on file Stress: Not on file Social Connections: Not on file Intimate Partner Violence: Unknown (08/23/2023) [place] Safety & Environment Fear of Current or Ex-Partner: Not on file Emotionally Abused: Not on file Physically Abused: Not on file Sexually Abused: Not on file Physically or Sexually Abused: Not on file Depression: Not on file Housing Stability: Not on file Utilities: Not on file Allergies: Allergies Allergen Reactions Clindamycin Phosphate Swelling Weight: 83.5kg Visit Vitals BP 140/64 (BP Location: Left arm, Patient Position: Sitting) Pulse 53 Ht 1.702 m (5' 7 ) Wt 83.5 kg (184 lb) SpO2 98% BMI 28.82 kg/m??? Smoking Status Former BSA 1.99 m??? Meds: Current Outpatient Medications on File [...] XL (Toprol-XL) 25 mg 24 hr tablet Take 25 mg by mouth in the morning. Do not crush or chew. multivitamin tablet Take 1 tablet by mouth in the morning. [DISCONTINUED] nitroglycerin (Nitrostat) 0.4 mg SL tablet apixaban (Eliquis) 5 mg tablet Take 1 tablet (5 mg) by mouth in the morning and at bedtime. 60 tablet 11 empagliflozin (Jardiance) 10 mg Take 1 tablet every day by oral route for 30 days. 90 tablet 3 No current facility-administered medications [...] no edema, no peripheral signs of emboli P (more content not included)... [facility] 10-12-2022 Note CONSULTATION CONSULTATION DATE: 10/12/2022 [...] our patients to inform us about any [id number] medications or herbal remedies/nutritional supplements/alternative remedies. 2. [...] options with their primary care provider. [facility] 05-11-2022 Note CONSULTATION CONSULTATION DATE: 05/11/2022 HISTORY [...] may call us at any time. [facility] 02-02-2022 Note CONSULTATION CONSULTATION DATE: 02/02/2022 This [...] three months' time unless otherwise indicated. [facility] 11-23-2020 Note HNO ID: [id number] Author: Rula Allen APRN.CODING EDUCATOR Service: ? Author Type: Nurse Practitioner Type: Progress Notes Filed: 11/23/2020 9:19 PM Note Text: No show [facility] 11-23-2020 Note Patient Outreach (UR OLMN) RADHA PITTS ([id number]) 1950 M Date Time Provider Department 11/23/20 WEIGHT, COLE JIMENEZDEUCE During your visit today, we recorded the following information about you: Allergies As of Date: 11/23/2020 Noted Allergy Reaction CLINDAMYCIN PHOSPHATE 12/12/2018 7 - Swelling Date Reviewed: 11/12/2020 Reviewed by: Praveena Pritchard MA - Fully Assessed Visit Diagnosis:Screening for genitourinary condition [Z13.89] Order(s):URINALYSIS, DIPSTICK ONLY [SQUA] Order #: [id number] Prescriptions as of 11/23/2020 Sig: FOLIC ACID [...] List As Of Date 11/23/2020 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 Author Type: Physician Type: Progress Notes Filed: 11/12/2020 9:25 AM Note Text: PATIENT NAME: Radha Pitts CLINIC NO.: [id number] ATTENDING PHYSICIAN: Valentine Thurman MD DATE OF SERVICE: November 12, [address] Valentine Thurman [address] [place] [id number] here is an update on a follow up visit on male Radha Pitts at the clinic 11/12/2020 Diagnosis: 1. Bladder cancer s/p TURBT and BCG ( Last BCG 2014) Treatment History: HPI: Radha Pitts is a 70 year old year [...] BASOP, ABSBASO PATH: Imaging: Assessment and Plan: Radha Pitts is a 70 year old year old male here for follow up. 1. Bladder cancer- Arrange for referral for surveillance 2. Afib- FU anticoag clinic for coumadin 3. See us as needed Thank you for the kind referral. If there are any questions and or concerns please do not hesitate to contact me at [phone]. Valentine Thurman MD Hematology/Medical Oncology [facility] 15 I spent a total of 15 minutes on the date of the service which included preparing to see the patient, [id number] patient care, completing clinical documentation, obtaining and/or reviewing separately obtained history and ordering medications, tests, or procedures. Medical Decision Making CC: [facility] Evaluation + Plan note Future Appointments Appointment Date:06/18/2024 02:00:00 PM Scheduled Provider:Abelardo MATTA MD Location:[facility] Appointment Type: Established 15 [facility] [place] [facility] course Narrative No data available for this section [facility] [place] [facility] Discharge instructions No data available for this section [facility] [place] Progress note No data available for this section [facility] [place] Summary Purpose Family History No Family History Records FoundNo Family History Records FoundNo Family History Records FoundNo Family History Records Found No data available for this section No data available for this section No Family History Records FoundNo Family History [...] section and content) DATE CREATED AUTHOR 08/01/2019 [facility] DATE CREATED AUTHOR AUTHOR'S ORGANIZ ATION 07/05/2021 [facility] DATE CREATED AUTHOR AUTHOR'S ORGANIZ ATION 07/26/2021 [facility] DATE CREATED AUTHOR AUTHOR'S ORGANIZ ATION 12/10/2022 [facility] DATE CREATED AUTHOR AUTHOR'S ORGANIZ ATION 06/22/2024 [facility] DATE CREATED AUTHOR AUTHOR'S ORGANIZ ATION 11/30/2024 [facility] DATE CREATED AUTHOR AUTHOR'S ORGANIZ ATION 12/08/2024 [facility] Source Comments (unrecognize d section and content) In the event this informatio n is protected by the Federal Confidentiality of Alcohol and Drug Abuse Patient Records regulations: The Federal rules restrict any use of the information to criminally investigate or prosecute any alcohol or drug abuse patient.[facility] the event this information is protected by the Federal Confidentiality of Alcohol and Drug Abuse Patient Records regulations: The Federal rules restrict any use of the information to criminally investigate or prosecute any alcohol or drug abuse patient.[facility] the event this information is protected by the Federal Confidentiality of Alcohol and Drug Abuse Patient Records regulations: The Federal rules restrict any use of the information to criminally investigate or prosecute any alcohol or drug abuse patient.[facility] the event this information is protected by the Federal Confidentiality of Alcohol and Drug Abuse Patient Records regulations: The Federal rules restrict any use of the information to criminally investigate or prosecute any alcohol or drug abuse patient.[facility] Patient Care team informatio n (unrecognized section and content) Personnel Name: MILADIS PEREIRA CNP Address: Address: [address], [place] [address]- Personnel Name: MILADIS PEREIRA CNP Address: Address: [address], [address] FOR RECORDS PERTAINING TO PATIENTS WHO ARE [...] BE BASED ON THE PRIMARY CLINICAL RECORDS. [facility]. provides no warranty or guarantee of the accuracy or completeness of information in this document.
== END 2025-01-30 13:05 | disposition home or self-care (01) ==
LOC: CARD 13:05
PROVIDERS: PCP Nurse Practitioner Family; Visit Provider Nurse Practitioner Family
DX: I48.0 Paroxysmal atrial fibrillation (principal); I50.22 Chronic systolic (congestive) heart failure
CPT/HCPCS: 93306; 93356

== ENCOUNTER 2025-03-11 08:30 | Outpatient (OUT) | payer MEDICARE, SELFPAY ==
--- OUTSIDE RECORDS SUMMARY | 2025-03-11 08:37 | XMS_ITS | CCD ---
Author Organization [facility] Care Team Providers Care Body Finisher Name Role Phone Miladis Pereira Primary Care Provider UNKNOWN, PHYSICIAN Primary Care Unavailable SELF, REFERRED [...] ., CATIA Consulting Leena vailable LAKSHMIPATHY ., GREGENDTINYATH Attending Leena vailable LAKSHMIPATHY ., ROSAATH Admitting [...] Attending Unavailable FAWWAD, ONTIVEROS H Admitting Unavailable [facility] Primary Care Unavailable FAWWAD, ONTIVEROS H Admitting Unavailable HOY ., DR PALACIOS Primary Care Unavailable FAWWAD, ONTIVEROS H Attending Unavailable LAKSHMIPATHY ., NARENDRANATH Attending Leena vailable LAKSHMIPATHY ., NARENDRANATH Admitting Leena vailable HALKER ., ROSLYN Consulting Unavailable [facility] Primary Care Unavailable ALEX .DIANA Consulting Unavailable RANDHAWA ., DR VARSHA Gonzalez Admitting Unavailable RANDHAWA ., DR VARSHA Gonzalez Attending Unavailable HOY ., DR PALACIOS Primary Care Unavailable LAKSHMIPATHY ., NARENDRANATH Attending Leena vailable LAKSHMIPATHY ., NARENDRANATH Admitting Leena vailable CÉSAR IBANEZ Consulting Unavaila ble [facility] Primary Care Unavailable LAKSHMIPATHY ., NARENDTINYATH Consulting Leena vailable LAKSHMIPATHY ., NARENDRANATH Admitting Leena vailable LAKSHMIPATHY ., ROSAATH Attending Leena vailable RAFFAELE ., DR PALACIOS Primary Care Unavailable RICHARD, DR MAKENNA Lopez Consulting Unavailable LAKSHMIPATHY ., CATIA Consulting Leena vailable ALGHOTHANI, MOHAMAD Attending Unavailable RICHARD, DR MAKENNA Lopez Consulting Unavailable ALGHOTHANI, MOHAMAD Admitting Unavailable RANDALL, MILADIS Primary Care Unavailable AMRISEL, MOHSOFIAD Consulting Unavailable RAFFAELE ., DR PALACIOS Consulting Unavailable SYDNEE ., DR VARSHA Gonzalez Admitting Unavailable RAFFAELE ., DR PALACIOS Primary Care Unavailable RANDHAWA ., DR VARSHA Gonzalez Attending Unavailable ISAI .DIANA Consulting Unavailable FAWWAD, H Admitting Unavailable FAWTWAN, ONTIVEROS H Attending Unavailable RANDALL, MILADIS Primary Care Unavailable RANDALL, MILADIS S Primary Care Physician Abelardo MATTA Attending Unavailable PAXTON, Abelardo Lopez Attending Unavailable RANDALL, MILADIS S Referring Unavailable RANDALL, MILADIS S Primary Care Unavailable AREN AHUMADA Attending Unavailable RANDALL, MILADIS S Primary Care Unavailable RANDALL, MILADIS S Primary Care Unavailable SWATI SUAZO Attending Unavailable RANDALL, MILADIS S Primary Care Unavailable NINOSKA VASQUEZ Attending Unavailable BALDOMERO, AREN Attending Unavailable AREN SPARROW Referring Unavailable BALDOMERO, AREN Referring Unavailable AREN SPARROW Admitting Unavailable AREN SPARROW Attending Unavailable AREN SPARROW Attending Unavailable BENJAMIN PATEL Attending Unavailable NEGRITA KING Attending Unavailable Allergies Allergy Classification Reported Allergen(s) Allergy Type Date of Onset Reaction(s) Facility (2 sources) Clindamycin; Translations: [CLINDAMYCIN PHOSPHATE] Drug Allergy 9 [facility] (1 source) No Known Medication Allergies; Translations: [No Known Medication Allergies] Propensity to adverse reactions (disorder) [facility] Repository Medications Current Medications Medication Drug Class(es) [...] Comment on above: Take by mouth. Problems Active Problems Problem Classification Problem Date Documented Da [...] dysrhythmias (2 sources) Sinus bradycardia 05-19-2024 Episodic Congestive heart failure; nonhypertensive (4 sources) Chronic systolic (congestive) heart failure; Translations: [Chronic diastolic (congestive) heart failure] Onset: 03-06-2025 Chronic Coronary atherosclerosis and other heart disease (2 sources) Atherosclerotic heart disease of [place] coronary artery without angina pectoris; Translations: [Atherosclerotic heart disease of [place] coronary artery without angina pectoris] Onset: 11-03-2022 Chronic Diabetes mellitus without complication (3 sources) Type 2 diabetes mellitus without complications; Translations: [Type 2 diabetes mellitus] Onset: 11-23-2020 05-19-2024 Chronic Disorders of lipid metabolism (5 sources) Pure hypercholesterolemia, unspecified; Translations: [Mixed hyperlipidemia] Onset: 11-23-2020 05-19-2024 Chronic E Codes: Fall (1 source) Unspecified fall, initial encounter; Translations: [Unspecified fall, initial encounter] Onset: 02-25-2025 Episodic E Codes: Place of occurrence (1 source) Unspecified place in unspecified non-institutional (private) residence as the place of occurrence of the external cause; Translations: [Unspecified place in unspecified non-institutional (private) residence as the place of occurrence of the external cause] Onset: 02-25-2025 Episodic Essential hypertension (5 sources) Essential (primary) hypertension; Translations: [Essential hypertension] Onset: 11-23-2020 05-19-2024 Chronic Hypertension with complications and secondary hypertension (2 sources) Hypertensive heart disease with heart failure; Translations: [Hypertensive heart disease with heart failure] Onset: 03-06-2025 Chronic Malaise and fatigue (1 source) Weakness; Translations: [Weakness] Onset: 02-25-2025 Episodic Mood disorders (2 sources) Depressive disorder 05-19-2024 Chronic Open wounds of extremities (1 source) Laceration without foreign body of left elbow, initial encounter; Translations: [Laceration without foreign body of left elbow, initial encounter] Onset: 02-25-2025 Episodic Other aftercare (1 source) terminal gauger (current) use of insulin; Translations: [FAMILY MANAGER CURRENT USE OF INSULIN] Onset: 11-09-2022 Episodic Other aftercare (1 source) long-term (current) use of aspirin; Translations: [FCI CURRENT USE OF ASPIRIN] Onset: 11-09-2022 Episodic Other aftercare (1 source) long-term (current) use of oral hypoglycemic drugs; Translations: [FAMILY MANAGER USE ORAL HYPOGLYCEMIC DX] Onset: 11-09-2022 Episodic Other aftercare (5 sources) Encounter for therapeutic drug level monitoring; Translations: [ENC THERAPEUTC DRUG LEVL MONITORING] Onset: 10-28-2022 Episodic Other aftercare (1 source) long-term (current) use of anticoagulants; Translations: [FAMILY MANAGER CURRNT USE ANTICOAGULANTS] Onset: 11-29-2022 Episodic Other aftercare (4 sources) Other intermission coordinator (current) drug therapy; Translations: [OTH FAMILY MANAGER CURRENT DRUG THERAPY] Onset: 10-23-2022 Episodic Other and ill-defined heart disease (2 sources) Cardiomegaly 05-19-2024 Chronic Other gastrointestinal disorders (1 source) Abnormal feces; Translations: [Other fecal abnormalities] Onset: 06-03-2024 Episodic Other inflammatory condition of skin (2 sources) Psoriasis 05-19-2024 Chronic Other nervous system disorders (1 source) Other chronic pain; Translations: [OTHER CHRONIC PAIN] Onset: 10-18-2022 Chronic Other nutritional; endocrine; and metabolic disorders (2 [...] EXPOS COVID-19] Onset: 2022 Unclassified (1 source) Weakness - Generalized Onset: 02-25-2025 Unclassified (1 source) Shoulder Injury Onset: 09-08-2024 Unclassified (1 source) High BP Onset: 09-01-2024 Past or Other Problems Problem Classification Problem Date Documented Date Episodic/Chronic Other circulatory disease (3 sources) Personal history of other diseases of the circulatory system; Translations: [Personal history of other diseases of the circulatory system] Onset: 09-17-2024 Episodic Other non-traumatic joint disorders (1 source) Pain in right shoulder; Translations: [Pain in right shoulder] Onset: 09-08-2024 Episodic Residual codes; unclassified (2 sources) Other specified postprocedural states; Translations: [Other specified postprocedural states] Onset: 09-17-2024 Episodic Results Test Name Value Interpretation Reference Range Facility Office Visiton 03-06-2025 Follow-up visit [id number] Radha Pitts 1950 M Date Provider Department Center 03/06/2025 [id number] KING [facility] Family History Family Status - Relation Status Age at Mother Father Level of Service:64810 ND OFFICE/OUTPATIENT ESTABLISHED MOD MDM 30 MIN Reason for Visit and Comments: 3 Month follow [Other] - Recent Echo Hypertension [859985] Hyperlipidemia [182] Atrial Fibrillation [80] Congestive Heart Failure [127] Patient was in [facility] ER last week for a fall [Other] Normal [facility] BASIC METABOLIC PANELon 01-31 Anion gap [Moles/Vol] 8 mmol/L [facility] Comment on above: Performed By: #### C BCA, BMP, 30893-2 #### [facility] ([id number]) [address] [place] [address] 03500 Calcium [Mass/Vol] 8.7 mg/dL Normal 8.5-10.5 [facility] Comment on above: Performed By: #### C INO BMP, 59552-4 #### [facility] ([id number]) [address] [place] [address] 92485 Chloride [Moles/Vol] 100 mmol/L Normal 98-109 [facility] Comment on above: Performed By: #### C INO BMP, 29340-9 #### [facility] ([id number]) [address] [place] [address] 04967 CO2 [Moles/Vol] 30 mmol/L Normal 22-32 [facility] Comment on above: Performed By: #### C NELLY MCKINNON, 24171-9 #### [facility] ([id number]) [address] [place] [address] 08866 Creatinine [Mass/Vol] 0.84 mg/dL Normal 0.70-1.20 [facility] Comment on above: Result Comment: METH OD TRACEABLE TO IDMS STANDARD Performed By: #### C NELLY MCKINNON, 76215-9 #### [facility] ([id number]) [address] [place] [address] 33585 EGFR (CKD-EPI) NON-RACE DEPENDENT >^90 Normal >=60 [facility] Comment on above: Result Comment: eGFR not reported due to non-numeric value for Creatinine. EGFR not calculated due to patient's gender not being defined. Reported eGFR is based on the CKD-EPI 2021 equation that does not use a race coefficient. Performed By: #### C INO, BMP, 37072-6 #### [facility] ([id number]) [address] [place] [address] 12383 Glucose [Mass/Vol] 242 mg/dL High 65-99 [facility] Comment on above: Performed By: #### C INO, BMP, 25916-3 #### [facility] ([id number]) [address] [place] [address] 93051 Potassium [Moles/Vol] 4.0 mmol/L Normal 3.5-5.0 [facility] Comment on above: Performed By: #### C INO BMP, 23110-8 #### [facility] ([id number]) [address] [place] [address] 98709 Sodium [Moles/Vol] 138 mmol/L Normal 134-146 [facility] Comment on above: Performed By: #### C INO BMP, 95886-8 #### [facility] ([id number]) [address] [place] [address] 75249 Urea nitrogen [Mass/Vol] 19 mg/dL Normal 5-27 [facility] Comment on above: Performed By: #### C INO, BMP, 38219-8 #### [facility] ([id number]) [address] [place] [address] 03831 CBC WITH AUTO DIFFERENTIALon 02-25-2025 BASOPHILS ABSOLUTE COUNT (10*3/UL) BY AUTOMATED COUNT 0.0 10*3/uL Normal 0.0-0.2 [facility] Comment on above: Performed By: #### C INO, BMP, 64844-8 #### [facility] ([id number]) [address] [place] [address] [place] [address] BASOPHILS RELATIVE PERCENT BY AUTOMATED COUNT 0.7 % Normal [facility] Comment on above: Performed By: #### C BCA, BMP, 63975-9 #### [facility] ([id number]) [address] [place] [address] [place] [address] CELLAVISION DIFFERENTIAL TYPE AUTOMATED DIFFERENTIAL Normal [facility] Comment on above: Performed By: #### C INO, BMP, 43295-1 #### [facility] ([id number]) [address] [place] [address] 02052 Eosinophils (Bld) [#/Vol] 0.1 10*3/uL Normal 0.0-0.4 [facility] Comment on above: Performed By: #### C NELLY MCKINNON, 97524-8 #### [facility] ([id number]) [address] [place] [address] 44615 EOSINOPHILS RELATIVE PERCENT BY AUTOMATED COUNT 1.5 % Normal [facility] Comment on above: Performed By: #### C NELLY MCKINNON, 19568-0 #### [facility] ([id number]) [address] [place] [address] 72023 Erythrocyte distribution width (RBC) [Ratio] 13.3 % Normal 11.5-15 [facility] Comment on above: Performed By: #### C NELLY MCKINNON, 36539-1 #### [facility] ([id number]) [address] [place] [address] 84031 Hematocrit (Bld) [Volume fraction] 36.7 % Low 39-50 [facility] Comment on above: Performed By: #### NELLY Saldana BCA, 75220-4 #### [facility] ([id number]) [address] [place] [address] 93068 Hemoglobin (Bld) [Mass/Vol] 12.7 g/dL Low 13-17 [facility] Comment on above: Performed By: #### NELLY Saldana BCA, 48450-6 #### [facility] ([id number]) [address] [place] [address] 76780 LYMPHOCYTES ABSOLUTE COUNT (10*3/UL) BY AUTOMATED COUNT 1.4 10*3/uL Normal 1.0-3.5 [facility] Comment on above: Performed By: #### NELLY Saldana BCA, 08296-3 #### [facility] ([id number]) [address] [place] [address] 84373 LYMPHOCYTES RELATIVE PERCENT BY AUTOMATED COUNT 26.8 % Normal [facility] Comment on above: Performed By: #### NELLY Saldana BCA, 86113-3 #### [facility] ([id number]) [address] [place] [address] 93197 MCH (RBC) [Entitic mass] 33.2 pg Normal 27-34 [facility] Comment on above: Performed By: #### NELLY Saldana BCA, 04861-6 #### [facility] ([id number]) [address] [place] [address] 28749 MCHC (RBC) [Mass/Vol] 34.7 g/dL Normal 32-36 [facility] Comment on above: Performed By: #### NELLY Saldana BCA, 51747-4 #### [facility] ([id number]) [address] [place] [address] 02820 MCV (RBC) [Entitic vol] 96 fL Normal 80-100 [facility] Comment on above: Performed By: #### NELLY Saldana BCA, 33902-4 #### [facility] ([id number]) [address] [place] [address] 12353 MONOCYTES ABSOLUTE COUNT (10*3/UL) BY AUTOMATED COUNT 0.5 10*3/uL Normal 0.0-0.9 [facility] Comment on above: Performed By: #### NELLY Saldana BCA, 49751-3 #### [facility] ([id number]) [address] [place] [address] 62896 MONOCYTES RELATIVE PERCENT BY AUTOMATED COUNT 9.4 % Normal [facility] Comment on above: Performed By: #### NELLY Saldana BCA, 22535-2 #### [facility] ([id number]) [address] [place] [address] 52961 NEUTROPHILS ABSOLUTE COUNT BY AUTOMATED COUNT 3.3 10*3/uL Normal 1.5-6.6 [facility] Comment on above: Performed By: #### NELLY Saldana BCA, 51256-1 #### [facility] ([id number]) [address] [place] [address] 76298 NEUTROPHILS RELATIVE PERCENT BY AUTOMATED COUNT 61.6 % Normal [facility] Comment on above: Performed By: #### NELLY Saldana BCA, 87658-5 #### [facility] ([id number]) [address] [place] [address] 96624 Platelet mean volume (Bld) [Entitic vol] 7.8 fL Normal 7-12 [facility] Comment on above: Performed By: #### NELLY Saldana BCA, 47817-6 #### [facility] ([id number]) [address] [place] [address] 79046 Platelets (Bld) [#/Vol] 252 10*3/uL Normal 150-450 [facility] Comment on above: Performed By: #### NELLY Saldana BCA, 98900-2 #### [facility] ([id number]) [address] [place] [address] 74840 RBC COUNT 3.84 X10E12/L Low 4.1-5.7 [facility] Comment on above: Performed By: #### NELLY Saldana BCA, 05508-5 #### [facility] ([id number]) [address] [place] [address] 54276 WBC (Bld) [#/Vol] 5.3 10*3/uL Normal 4-11 [facility] Comment on above: Performed By: #### NELLY Saldana BCA, 90272-2 #### [facility] ([id number]) [address] [place] [address]RAIN WO CONTon CT BRAIN WO CONT CT BRAIN WO CONT CT BRAIN WO CONT CLINICAL INFORMATION: dizziness, fall, on eloquis COMPARISON: 08/24/2022. PROCEDURE: Routine CT Head obtained without contrast. All CT scans at this facility use dose modulation, iterative reconstruction, and/or weight based dosing when appropriate to reduce radiation dose to as low as reasonably achievable. FINDINGS: No acute intracranial hemorrhage. No mass effect or midline shift. No extra-axial fluid collections. The ventricles and sulci are prominent consistent with global atrophy. Low-attenuation areas identified in the periventricular white matter consistent with microvascular ischemia. No depressed calvarial fracture. IMPRESSION: * No acute intracranial findings by CT. Finalized by Dominic Castellano MD on 02/25/2025 4:52 PM Normal [facility] MAGNESIUMon 02-25-2025 Magnesium [Mass/Vol] 2.0 mg/dL Normal 1.8-2.6 [facility] Comment on above: Performed By: #### C NELLY MCKINNON, 22782-7 #### [facility] ([id number]) [address] [place] [address] 94305 TROP I, HIGH SENSITIVITY 1 H OURon 02-25-2025 TROPONIN I, HIGH SENSITIVITY 6 ng/L Normal <21 [facility] Comment on above: Performed By: #### NELLY Saldana BCA, 00249-3 #### [facility] ([id number]) [address] [place] [address] 62172 TROPONIN I, HIGH SENSITIVITY 0 HOURon 02-25-2025 TROPONIN I, HIGH SENSITIVITY 5 ng/L Normal <21 [facility] Comment on above: Performed By: #### NELLY Saldana BCA, 10106-3 #### [facility] ([id number]) [address] [place] [address] 18965 36on 02-04-2025 36 Please let him know his ECHO showed his heart function improved to normal at 60%, yay! He has some mildly leaky mitral/aortic/tricuspi d valves that we can just monitor. Important to keep up with good BP control so we can help preserve his heart function. Thanks! Advised patient of Echo results per Jazmyn Patel CHECKERING MACHINE ADJUSTER. Patient verbalized understanding. Normal [facility] Orders Onlyon 02-02-2025 Orders Only [id number] Radha Pitts 1950 M Date Provider Department Center 02/02/2025 [id number], HISTORICAL CARD [facility] No family history on file Normal [facility] Orders Onlyon 12-03-2024 Orders Only [id number] Radha Pitts 1950 M Date Provider Department Center 12/03/2024 [id number], HISTORICAL CARD [facility] No family history on file Normal [facility] B-TYPE NATRIURETIC PEPTIDEon 11-25-2024 Natriuretic peptide B (Bld) [Mass/Vol] 68 pg/mL Normal <=100 [facility] Comment on above: Performed By: #### B FACILITIES OFFICER #### [facility] ([address] [address] VIR CBC WITH AUTO DIFFERENTIALon 11-25-2024 BASOPHILS ABSOLUTE COUNT (10*3/UL) BY AUTOMATED COUNT 0.0 10*3/uL Normal 0.0-0.2 [facility] Comment on above: Performed By: #### C BCA #### [facility] ([address] [address] VIR BASOPHILS RELATIVE PERCENT BY AUTOMATED COUNT 0.7 % Normal [facility] Comment on above: Performed By: #### C BCA #### [facility] ([address] [address] VIR CELLAVISION DIFFERENTIAL TYPE AUTOMATED DIFFERENTIAL Normal [facility] Comment on above: Performed By: #### C BCA #### [facility] ([address] [address] VIR Eosinophils (Bld) [#/Vol] 0.1 10*3/uL Normal 0.0-0.4 [facility] Comment on above: Performed By: #### C BCA #### [facility] ([address] [place] [address] VIR EOSINOPHILS RELATIVE PERCENT BY AUTOMATED COUNT 1.3 % Normal [facility] Comment on above: Performed By: #### C BCA #### [facility] ([address] [address] VIR Erythrocyte distribution width (RBC) [Ratio] 14.6 % Normal 11.5-15 [facility] Comment on above: Performed By: #### C BCA #### [facility] ([address] [address] VIR Hematocrit (Bld) [Volume fraction] 37.3 % Low 39-50 [facility] Comment on above: Performed By: #### C BCA #### [facility] ([address] [address] VIR Hemoglobin (Bld) [Mass/Vol] 12.9 g/dL Low 13-17 [facility] Comment on above: Performed By: #### C BCA #### [facility] ([address] [address] VIR LYMPHOCYTES ABSOLUTE COUNT (10*3/UL) BY AUTOMATED COUNT 1.3 10*3/uL Normal 1.0-3.5 [facility] Comment on above: Performed By: #### C BCA #### [facility] ([address] [address] VIR LYMPHOCYTES RELATIVE PERCENT BY AUTOMATED COUNT 25.7 % Normal [facility] Comment on above: Performed By: #### C BCA #### [facility] ([address] [address] VIR MCH (RBC) [Entitic mass] 34.0 pg Normal 27-34 [facility] Comment on above: Performed By: #### C BCA #### [facility] ([address] [address] VIR MCHC (RBC) [Mass/Vol] 34.4 g/dL Normal 32-36 [facility] Comment on above: Performed By: #### C BCA #### [facility] ([address] [address] VIR MCV (RBC) [Entitic vol] 99 fL Normal 80-100 [facility] Comment on above: Performed By: #### C BCA #### [facility] ([address] [address] VIR MONOCYTES ABSOLUTE COUNT (10*3/UL) BY AUTOMATED COUNT 0.4 10*3/uL Normal 0.0-0.9 [facility] Comment on above: Performed By: #### C BCA #### [facility] ([address] [address] VIR MONOCYTES RELATIVE PERCENT BY AUTOMATED COUNT 7.4 % Normal [facility] Comment on above: Performed By: #### C BCA #### [facility] ([address] [address] VIR NEUTROPHILS ABSOLUTE COUNT BY AUTOMATED COUNT 3.3 10*3/uL Normal 1.5-6.6 [facility] Comment on above: Performed By: #### C BCA #### [facility] ([address] [address] VIR NEUTROPHILS RELATIVE PERCENT BY AUTOMATED COUNT 64.9 % Normal [facility] Comment on above: Performed By: #### C BCA #### [facility] ([address] [address] VIR Platelet mean volume (Bld) [Entitic vol] 8.1 fL Normal 7-12 [facility] Comment on above: Performed By: #### C BCA #### [facility] ([address] [address] VIR Platelets (Bld) [#/Vol] 221 10*3/uL Normal 150-450 [facility] Comment on above: Performed By: #### C BCA #### [facility] ([address] [place] [address] VIR RBC COUNT 3.78 X10E12/L Low 4.1-5.7 [facility] Comment on above: Performed By: #### C BCA #### [facility] ([address] [place] [address] VIR WBC (Bld) [#/Vol] 5.1 10*3/uL Normal 4-11 [facility] Comment on above: Performed By: #### C BCA #### [facility] ([address] [place] [address] VIR COMPREHENSIVE METABOLIC PANE Kobi 11-25-2024 Albumin [Mass/Vol] 4.3 g/dL Normal 3.2-5.3 [facility] Comment on above: Performed By: #### C MP #### [facility] ([address] [place] [address] VIR ALP [Catalytic activity/Vol] 44 U/L Normal 39-130 [facility] Comment on above: Performed By: #### C MP #### [facility] ([address] [place] [address] VIR ALT [Catalytic activity/Vol] 12 U/L Normal <=40 [facility] Comment on above: Performed By: #### C MP #### [facility] ([address] [place] [address] VIR Anion gap [Moles/Vol] 8 mmol/L Normal 5-15 [facility] Comment on above: Performed By: #### C MP #### [facility] ([address] [place] [address] VIR AST [Catalytic activity/Vol] 25 U/L Normal <=41 [facility] Comment on above: Performed By: #### C MP #### [facility] ([address] [place] [address] VIR Bilirubin [Mass/Vol] 1.1 mg/dL Normal 0.3-1.2 [facility] Comment on above: Performed By: #### C MP #### [facility] ([address] [place] [address] VIR Calcium [Mass/Vol] 8.9 mg/dL Normal 8.5-10.5 [facility] Comment on above: Performed By: #### C MP #### [facility] ([address] [place] [address] VIR Chloride [Moles/Vol] 96 mmol/L Low 98-109 [facility] Comment on above: Performed By: #### C MP #### [facility] ([address] [place] [address] VIR CO2 [Moles/Vol] 31 mmol/L Normal 22-32 [facility] Comment on above: Performed By: #### C MP #### [facility] ([address] [place] [address] VIR Creatinine [Mass/Vol] 1.01 mg/dL Normal 0.70-1.20 [facility] Comment on above: Result Comment: METH OD TRACEABLE TO IDMS STANDARD Performed By: #### C MP #### [facility] ([address] [place] [address] VIR GFR/1.73 sq M.predicted among non-blacks MDRD (S/P/Bld) [Vol rate/Area] 79 mL/min/{1.73_m2} Normal >=60 [facility] Comment on above: Result Comment: eGFR not reported due to non-numeric value for Creatinine. Reported eGFR is based on the CKD-EPI 2021 equation that does not use a race coefficient. Performed By: #### C MP #### [facility] ([address] [place] [address] VIR Glucose [Mass/Vol] 207 mg/dL High 65-99 [facility] Comment on above: Performed By: #### C MP #### [facility] ([address] [place] [address] VIR Potassium [Moles/Vol] 3.8 mmol/L Normal 3.5-5.0 [facility] Comment on above: Performed By: #### C MP #### [facility] ([address] [place] [address] VIR Protein [Mass/Vol] 6.9 g/dL Normal 6.0-8.0 [facility] Comment on above: Performed By: #### C MP #### [facility] ([address] [place] [address] VIR Sodium [Moles/Vol] 135 mmol/L Normal 134-146 [facility] Comment on above: Performed By: #### C MP #### [facility] ([address] [place] [address] VIR Urea nitrogen [Mass/Vol] 15 mg/dL Normal 5-27 [facility] Comment on above: Performed By: #### C MP #### [facility] ([address] [place] [address] VIR MAGNESIUMon 11-25-2024 Magnesium [Mass/Vol] 1.9 mg/dL Normal 1.8-2.6 [facility] Comment on above: Performed By: #### M G #### [facility] ([address] [place] [address] VIR TROP I, HIGH SENSITIVITY 1 H OURon 11-25-2024 TROPONIN I, HIGH SENSITIVITY 8 ng/L Normal <21 [facility] Comment on above: Performed By: #### T [id number] #### [facility] ([place] [address] [place] [address] VIR TROPONIN I, HIGH SENSITIVITY 0 HOURon 11-25-2024 TROPONIN I, HIGH SENSITIVITY 8 ng/L Normal <21 [facility] Comment on above: Performed By: #### T [id number] #### [facility] ([facility]) [address] [place] [address] VIR 36on 11-14-2024 36 TEMO Bright [place] Please let him know: BP is looking better. Continue lisinopril 5mg daily. Follow-up BMP in 2-4 weeks. Thanks! Advised patient of Jazmyn's recommendations. Patient will due blood work prior to his appointment on 12/17/2024 [facility] 37on 10-23-2024 37 *Increase lisinopril to 5mg daily. Continue to check your blood pressure daily 2 hours after medications and write down your readings. We will call you in 2 weeks to see how your BP is doing and see if we need to increase your medication any further. [facility] Follow-Upon 10-23-2024 Follow-Up [id number] Radha Pitts 1950 M Date Provider Department Center 10/23/2024 166-BENJAMIN PATEL [facility] No family history on file Level of Service:85430 ND OFFICE/OUTPATIENT ESTABLISHED MOD MDM 30 MIN Reason for Visit and Comments: Atrial Fibrillation [80] Hypertension [719509] Hyperlipidemia [182] [facility] Telephoneon 09-26-2024 Telephone [id number] Radha Pitts 1950 Date Provider Department Center 09/26/2024 1987-AMY GARCIA [facility] No family history on file Reason for Visit and Comments: week f/u post ablation [Other] [facility] 30on 09-18-2024 30 The patient is Moderately Stable - Low risk of patient condition declining or worsening The patient's goals for the shift include comfort, rest The clinical goals for the shift include VSS, safety Problem: Cardiovascular - Adult Goal: Maintains optimal cardiac output and hemodynamic stability Outcome: Progressing Flowsheets (Taken 09/18/2024 0815) Maintains optimal cardiac output and hemodynamic stability: [...] signs and symptoms of bleeding or hemorrhage Normal [facility] CBC WITH AUTO DIFFERENTIALon 09-18-2024 Basophils (Bld) [#/Vol] 0.04 10*3/uL Normal 0.00-0.20 [facility] Comment on above: Performed By: #### L [id number] #### [facility] ([facility]) [address] [place] [address] Basophils/100 WBC (Bld) 0.4 % Normal 0.0-1.0 [facility] Comment on above: Performed By: #### L [id number] #### [facility] ([facility]) [address] [place] [address] Eosinophils (Bld) [#/Vol] 0.00 10*3/uL Normal 0.00-0.50 [facility] Comment on above: Performed By: #### L [id number] #### [facility] ([facility]) [address] [place] [address] Eosinophils/100 WBC (Bld) 0.0 % Normal 0.0-6.0 [facility] Comment on above: Performed By: #### L [id number] #### [facility] ([facility]) [address] [place] [address] Erythrocyte distribution width (RBC) [Ratio] 13.7 % Normal 11.5-15.0 [facility] Comment on above: Performed By: #### L [id number] #### [facility] ([facility]) [address] [place] [address] ERYTHROCYTE MEAN CORPUSCULAR HEMOGLOBIN CONCENTRATION (G/DL) BY AUTOMATED 32.1 g/dL Normal 32.0-35.0 [facility] Comment on above: Performed By: #### L [id number] #### [facility] ([facility]) [address] [place] [address] Hematocrit (Bld) [Volume fraction] 37.7 % Low 39.0-50.0 [facility] Comment on above: Performed By: #### L [id number] #### [facility] ([facility]) [address] [place] [address] Hemoglobin (Bld) [Mass/Vol] 12.1 g/dL Low 13.0-17.0 [facility] Comment on above: Performed By: #### L [id number] #### [facility] ([facility]) [address] [place] [address] Immature granulocytes (Bld) [#/Vol] 0.05 10*3/uL Normal 0.00-0.20 [facility] Comment on above: Performed By: #### L [id number] #### [facility] ([facility]) [address] [place] [address] Immature granulocytes/100 WBC (Bld) 0.5 % Normal 0.0-1.0 [facility] Comment on above: Performed By: #### L [id number] #### [facility] ([facility]) [address] [place] [address] Lymphocytes (Bld) [#/Vol] 1.12 10*3/uL Low 1.20-4.00 [facility] Comment on above: Performed By: #### L [id number] #### [facility] ([facility]) [address] [place] [address] Lymphocytes/100 WBC (Bld) 11.8 % Low 20.0-45.0 [facility] Comment on above: Performed By: #### L [id number] #### [facility] ([facility]) [address] [place] [address] MCH (RBC) [Entitic mass] 32.3 pg Normal 27.0-33.0 [facility] Comment on above: Performed By: #### L [id number] #### [facility] ([facility]) [address] [place] [address] MCV (RBC) [Entitic vol] 100.5 fL High 82.0-98.0 [facility] Comment on above: Performed By: #### L [id number] #### [facility] ([facility]) [address] [place] [address] Monocytes (Bld) [#/Vol] 0.51 10*3/uL Normal 0.10-1.00 [facility] Comment on above: Performed By: #### L [id number] #### [facility] ([facility]) [address] [place] [address] Monocytes/100 WBC (Bld) 5.4 % Normal 5.0-12.0 [facility] Comment on above: Performed By: #### L [id number] #### [facility] ([facility]) [address] [place] [address] Neutrophils (Bld) [#/Vol] 7.81 10*3/uL High 1.60-7.60 [facility] Comment on above: Performed By: #### L [id number] #### [facility] ([facility]) [address] [place] [address] Neutrophils/100 WBC (Bld) 81.9 % High 40.0-72.0 [facility] Comment on above: Performed By: #### L [id number] #### [facility] ([facility]) [address] [place] [address] NRBC (PER 100 WBCS) BY AUTOMATED COUNT 0.0 % Normal 0 [facility] Comment on above: Performed By: #### L [id number] #### [facility] ([facility]) [address] [place] [address] PLATELETS (10*3/UL) IN BLOOD AUTOMATED COUNT 260 10*3/uL Normal 150-400 [facility] Comment on above: Performed By: #### L [id number] #### [facility] ([facility]) [address] [place] [address] RBC (Bld) [#/Vol] 3.75 10*6/uL Low 4.20-5.70 [facility] Comment on above: Performed By: #### L [id number] #### [facility] ([facility]) [address] [place] [address] WBC (Bld) [#/Vol] 9.53 10*3/uL Normal 4.00-10.60 [facility] Comment on above: Performed By: #### L [id number] #### [facility] ([facility]) [address] [place] [address] DSon 09-18-2024 DS Admission Admitted 09/17/2024 for [...] Medications These medications were sent to [facility] - [place], [place] - [address] [place] [address] [place] [address], [place] [address] famotidine 20 mg tablet Activity Normal activity [...] water. Allergies Clindamycin phosphate Hospital Course Radha Pitts is a 74 yo male with PMHx significant for HTN, type 2 diabetes mellitus, persistent/permanent atrial fibrillation on amiodarone and eliquis, CAD, hyperlipidemia. He was recently at [facility] ER in 08/2021 for strokelike symptoms which have resolved and MRI at the time was negative for acute infarct. 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 Currently asymptomatic with his afib and has been tolerating amiodarone. Patient presented for elective afib ablation this admission. ATRIAL FIBRILLATION ABLATION PROCEDURE NOTE DATE OF PROCEDURE: 09/17/2024 PERFORMING PHYSICIAN: Dr. Aren Sparrow HUMAN RESOURCE ASSISTANT: JHOAN CONSENT: Patient NAME OF THE PROCEDURE: [...] 81.9 (*) (more content not included)... Normal [facility] POCT GLUCOSE METER UNSOLICIT ED RESULTSon 09-18-2024 Glucose [Mass/Vol] 179 mg/dL High 70-[address] [facility] Comment on above: Order Comment: Waive d Testing in the ED is performed under the ED CLIA certificate #[id number]. Result Comment: [email or web address] Performed By: #### L [id number] #### [facility] ([facility]) [address] [place] [address] Anesthesiaon 09-17-2024 Anesthesia [id number] Radha Pitts 1950 M Date Provider Department Center 09/17/202402474-[id number], TAYL*[facility] [place] [facility] No family history on file Normal [facility] HPon 09-17-2024 HP -- Attestation signed [...] have agreed to proceed with the procedure. [place] Electrophysiology Consult Note Reason for visit: afib HPI: Radha Pitts is a 74 y.o. year old with past medical history of HTN/ DM2/ Persistent/? Permanent A-fib on amiodarone, metoprolol and eliquis, CAD, hypertension, hyperlipidemia. He was recently at [facility] ER in August 2021 for strokelike [...] Insecurity: No Food Insecurity (09/08/2024) Received from [facility] Hunger Screening Within the past 12 months [...] on file Intimate Partner Violence: Unknown (08/23/2023) [place] Safety & Environment Fear of Current or Ex-Partner: Not on file Emotionally Abused: Not on file Physically Abused: Not on file Sexually Abused: Not on file Physically or Sexually Abused: Not on file Depression: Not at risk (11/12/2020) Received from [facility], [facility] PHQ-2 PHQ-2 score: 0 Housing Stability: Low Risk (08/24/2022) Received from [employer], [employer], [employer] Housing Instability Are you worried or concerned [...] 36.2 ???C (more content not included)... Normal [facility] POCT GLUCOSE METER UNSOLICIT ED RESULTSon 09-17-2024 Glucose [Mass/Vol] 144 mg/dL High 70-105 [facility] Comment on above: Order Comment: Waive d Testing in the ED is performed under the ED CLIA certificate #[id number]. Result Comment: [email or web address] Performed By: #### L [id number] ####[facility] ([facility])[address] [place] [address] Glucose [Mass/Vol] 157 mg/dL High 70-105 [facility] Comment on above: Order Comment: Waive d Testing in the ED is performed under the ED CLIA certificate #[id number]. Result Comment: [email or web address] Performed By: #### L [id number] ####[facility] ([facility])[address] [place] [address] Glucose [Mass/Vol] 156 mg/dL High 70-105 [facility] Comment on above: Order Comment: Waive d Testing in the ED is performed under the ED CLIA certificate #[id number]. Result Comment: [email or web address] Performed By: #### L [id number] ####[facility] ([facility])[address] [place] [address] PROTIME-INRon 09-17-2024 INR IN PPP BY COAGULATION ASSAY 1.08 Normal 0.90-1.10 [facility] Comment on above: Result Comment: ACCC [...] 1995;108:231S-246S. Performed By: #### L [id number] #### [facility] ([facility]) [address] [place] [address] PROTHROMBIN TIME (PT) IN PPP BY COAGULATION ASSAY 13.9 Seconds Normal 12.3-14.8 [facility] Comment on above: Performed By: #### L [id number] #### [facility] ([facility]) [address] [place] [address] Prep for Procedureon 09-17- 025 Prep for Procedure [id number] Radha Pitts 1950 M Date Provider Department Center 09/17/20241986-AMY GARCIA [facility] [place] [facility] No family history on file Normal [facility] Orders Onlyon 09-11-2024 Orders Only [id number] Radha Pitts 1950 M Date Provider Department Center 09/11/2024 Harry-STEFAN JORDAN ROMAN Gibbs No family history on file Normal [facility] Orders Onlyon 09-10-2024 Orders Only [id number] Radha Pitts 1950 M Date Provider Department Center 09/10/2024 Deacon-RICO JAMESON [facility] [place] Medical C No family history on file Normal [facility] XR SHOULDER RT MIN 2 VWSon [...] Vigil MD on 09/08/2024 9:47 AM Normal [facility] BASIC METABOLIC PANLon 09-01 Anion gap [Moles/Vol] 8 mmol/L Normal 5-15 [facility] Comment on above: Performed By: #### C INO BMP, 61000-3 #### [facility] ([id number]) [address] [place] [address] Calcium [Mass/Vol] 9.6 mg/dL Normal 8.5-10.5 [facility] Comment on above: Performed By: #### C INO BMP, 88612-4 #### [facility] ([id number]) [address] [place] [address] Chloride [Moles/Vol] 99 mmol/L Normal 98-109 [facility] Comment on above: Performed By: #### Les BCA BMP, 77520-6 #### [facility] ([id number]) [address] [place] [address] CO2 [Moles/Vol] 30 mmol/L Normal 22-32 [facility] Comment on above: Performed By: #### C BCA BMP, 20109-5 #### [facility] ([id number]) [address] [place] [address] Creatinine [Mass/Vol] 1.00 mg/dL Normal 0.70-1.20 [facility] Comment on above: Result Comment: METH OD TRACEABLE TO IDMS STANDARD Performed By: #### C NELLY MCKINNON, 94074-7 #### [facility] ([id number]) [address] [place] [address] GFR/1.73 sq M.predicted among non-blacks MDRD (S/P/Bld) [Vol rate/Area] 79 mL/min/{1.73_m2} Normal >59 [facility] Comment on above: Result Comment: Reported eGFR is based on the CKD-EPI 2020 equation that does not use a race coefficient. Performed By: #### C NELLY MCKINNON, 71421-8 #### [facility] ([id number]) [address] [place] [address] Glucose [Mass/Vol] 111 mg/dL High 65-99 [facility] Comment on above: Performed By: #### NELLY Saldana BCA, 13831-0 #### [facility] ([id number]) [address] [place] [address] Potassium [Moles/Vol] 4.2 mmol/L Normal 3.5-5.0 [facility] Comment on above: Performed By: #### NELLY Saldana BCA, 57095-6 #### [facility] ([id number]) [address] [place] [address] 97785 Sodium [Moles/Vol] 137 mmol/L Normal 134-146 [facility] Comment on above: Performed By: #### NELLY Saldana BCA, 08698-8 #### [facility] ([id number]) [address] [place] [address]492 Urea nitrogen [Mass/Vol] 15 mg/dL Normal 5-27 [facility] Comment on above: Performed By: #### NELLY Saldana BCA, 29063-6 #### [facility] ([id number]) [address] [place] [address]4446 CBC AND AUTO DIFFon 03-03-20 25 ABSOLUTE BASOPHIL 0.1 X10E9/L Normal 0.0-0.2 [facility] Comment on above: Performed By: #### NELLY Saldana BCA, 56611-9 #### [facility] ([id number]) [address] [place] [address] 30905 ABSOLUTE NEUTROPHIL 3.8 X10E9/L Normal 1.5-6.6 [facility] Comment on above: Performed By: #### NELLY Saldana BCA, 74596-7 #### [facility] ([id number]) [address] [place] [address] Basophils/100 WBC (Bld) 0.9 % Normal [facility] Comment on above: Performed By: #### NELLY Saldana BCA, 80548-1 #### [facility] ([id number]) [address] [place] [address] 26879 Eosinophils (Bld) [#/Vol] 0.1 10*3/uL Normal 0.0-0.4 [facility] Comment on above: Performed By: #### Les MCKINNON [facility], 48956-1 #### [facility] ([id number]) [address] [place] [address] 47039 Eosinophils/100 WBC (Bld) 1.9 % Normal [facility] Comment on above: Performed By: #### NELLY Saldana BCA, 51114-5 #### [facility] ([id number]) [address] [place] [address]56 Erythrocyte distribution width (RBC) [Ratio] 14.8 % Normal 11.5-15.0 [facility] Comment on above: Performed By: #### NELLY Saldana BCA, 25997-8 #### [facility] ([id number]) [address] [place] [address] 20583 Hematocrit (Bld) [Volume fraction] 41.9 % Normal 39-49 [facility] Comment on above: Performed By: #### C NELLY MCKINNON, 30585-1 #### [facility] ([id number]) [address] [place] [address] 11341 Hemoglobin (Bld) [Mass/Vol] 14.0 g/dL Normal 13.0-17.0 [facility] Comment on above: Performed By: #### C NELLY MCKINNON, 62157-8 #### [facility] ([id number]) [address] [place] [address] 01622 Lymphocytes (Bld) [#/Vol] 2.2 10*3/uL Normal 1.0-3.5 [facility] Comment on above: Performed By: #### NELLY Saldana BCA, 42929-5 #### [facility] ([id number]) [address] [place] [address] 75323 Lymphocytes/100 WBC (Bld) 32.6 % Normal [facility] Comment on above: Performed By: #### NELLY Saldana BCA, 04927-0 #### [facility] ([id number]) [address] [place] [address] 25085 MCH (RBC) [Entitic mass] 32.8 pg Normal 27-34 [facility] Comment on above: Performed By: #### NELLY Saldana BCA, 64769-8 #### [facility] ([id number]) [address] [place] [address] 45326 MCHC (RBC) [Mass/Vol] 33.4 g/dL Normal 32-36 [facility] Comment on above: Performed By: #### C NLELY MCKINNON, 39664-0 #### [facility] ([id number]) [address] [place] [address] 23781 MCV (RBC) [Entitic vol] 98 fL Normal 80-100 [facility] Comment on above: Performed By: #### NELLY Saldana BCA, 38554-2 #### [facility] ([id number]) [address] [place] [address] 87599 Monocytes (Bld) [#/Vol] 0.5 10*3/uL Normal 0-0.9 [facility] Comment on above: Performed By: #### C INO, BMP, 01954-3 #### [facility] ([id number]) [address] [place] [address] 78598 Monocytes/100 WBC (Bld) 7.8 % Normal [facility] Comment on above: Performed By: #### C INO, BMP, 77119-6 #### [facility] ([id number]) [address] [place] [address] 58438 Neutrophils/100 WBC (Bld) 56.8 % Normal [facility] Comment on above: Performed By: #### Les MCKINNON, BMP, 70533-9 #### [facility] ([id number]) [address] [place] [address] 07100 Platelet mean volume (Bld) [Entitic vol] 8.3 fL Normal 7-12 [facility] Comment on above: Performed By: #### Les MCKINNON, NELLY, 43694-4 #### [facility] ([id number]) [address] [place] [address] 18632 Platelets (Bld) [#/Vol] 304 10*3/uL Normal 150-450 [facility] Comment on above: Performed By: #### Les MCKINNON, BMP, 49408-3 #### [facility] ([id number]) [address] [place] [address] 00964 RBC COUNT 4.26 X10E12/L Normal 4.10-5.70 [facility] Comment on above: Performed By: #### Les MCKINNON, BMP, 27021-3 #### [facility] ([id number]) [address] [place] [address] 58042 WBC (Bld) [#/Vol] 6.8 10*3/uL Normal 4.0-11.0 [facility] Comment on above: Performed By: #### C NELLY MCKINNON, 91657-3 #### [facility] ([id number]) [address] [place] [address] Natriuretic peptide B [Mass/ Vol]on 09-01-2024 Natriuretic peptide B (Bld) [Mass/Vol] 58 pg/mL Normal <100.0 [facility] Comment on above: Performed By: #### C INO, BMP, 64180-3 #### [facility] ([id number]) [address] [place] [address] Orders Onlyon 08-05-2024 Orders Only [id number] Radha Pitts 1950 Date Provider Department Center 08/05/2024 LUZ ELENA LOJAGURJIT [facility] No family history on file [facility] Orders Onlyon 07-04-2024 Orders Only [id number] Radha Pitts 1950 Provider Department Center 07/04/2024 LUZ ELENA LOJAGURJIT [facility] C No family history on file [facility] Erroneous Telephone Encounte felisa 07-01-2024 Erroneous Telephone Encounter [id number] Radha Pitts 1950 Provider Department [place] 07/01/2024 Petrona-CHRISTA TONEY [facility] [place] [facility] No family history on file Reason for Visit and Comments: Error (VOID this visit) [77] - Patient cancelled his a-fib ablation for 07/09/2024 - AWNDY will need rescheduled when the ablation is rescheduled [facility] Orders Onlyon 06-30-2024 Orders Only [id number] Radha Pitts 1950 Date Provider Department Center 06/30/2024 LUZ ELENA LOJAGURJIT [facility] C No family history on file [facility] Office Visiton 06-17-2024 Follow-up visit [id number] Radha Pitts 1950 M Date Provider Department Center 06/17/2024 YarielAREN SPARROW ROMAN [facility] No family history on file Level of Service:62663 ND OFFICE/OUTPATIENT ESTABLISHED MOD MDM 30 MIN Normal [facility] Prep for Procedureon 024 Prep for Procedure [id number] Radha Pitts 1950 M Date Provider Department Center 05/23/2024 Leobardo-AMY GARCIA [facility] [place] [facility] No family history on file Normal [facility] Office Visiton 04-22-2024 Follow-up visit [id number] Radha Pitts 1950 Date Provider Department Center 04/22/2024 AlyshaAREN GERARD ROMAN [facility] No family history on file Level of Service:92699 ND OFFICE/OUTPATIENT ESTABLISHED LOW MDM 20 MIN Normal [facility] Physician Referralon 024 Physician Referral [phone] [id number]#[id number] TIFF Normal [facility] POINT OF CARE GLUCOSEon 05-0 Glucose [Mass/Vol] 228 mg/dL Critically high 74-106 [facility] Comment on above: Performed By: #### P OCGLUC #### [facility] [address] [place] [address] Dr. Alex Doll PROTIMEon 11-07-2022 INR Coag (PPP) [Relative time] 1.03 {INR} Normal [facility] Comment on above: Performed By: #### T , LIVER #### [facility] [address] [place] [address] Dr. Alex Doll INR GUIDELINES SEE BELOW Normal [facility] Comment on above: Result Comment: TARA RED INR: 2.0 - 3.0 CONDITIONS NOT LISTED BELOW 2.5 - 3.5 FOR PROSTHETIC HEART VALVE REPLACEMENT 2.5 - 3.5 RECURRENT THROMBOSIS Performed By: #### T SH, LIVER #### [facility] [address] [place] [address] Dr. Alex Doll PT Coag (PPP) [Time] 10.9 s Normal 9.0-11.6 [facility] Comment on above: Performed By: #### T , LIVER #### [facility] [address] [address] [address] Alex Doll MRI [place] CONon 11-02-19 MRI [place] CON EXAM: MRI LSPINE WO CON [...] by: CÉSAR IBANEZ Date: 2022-11-01 10:08 Normal [facility] FREE T4on 10-23-2022 Free T4 [Mass/Vol] 0.89 ng/dL Normal 0.76-1.46 [facility] Comment on above: Performed By: #### F T4 #### [facility] [address] [place] [address] Dr. Alex Doll LIVER PROFILEon 10-23-2022 Albumin [Mass/Vol] 3.8 g/dL Normal 3.4-5.0 [facility] Comment on above: Performed By: #### T SH, LIVER #### [facility] [address] [place] [address] Dr. Alex Doll Albumin/Globulin [Mass ratio] 1.2 {ratio} Normal [facility] Comment on above: Performed By: #### T SH, LIVER #### [facility] [address] [place] [address] Dr. Alex Doll ALP [Catalytic activity/Vol] 40 U/L Critically low 46-116 [facility] Comment on above: Performed By: #### T SH, LIVER #### [facility] [address] [place] [address] Dr. Alex Doll ALT [Catalytic activity/Vol] 20 U/L Normal 16-63 [facility] Comment on above: Performed By: #### T SH, LIVER #### [facility] [address] [place] [address] Dr. Alex Doll AST [Catalytic activity/Vol] 22 U/L Normal 15-37 [facility] Comment on above: Performed By: #### T SH, LIVER #### [facility] [address] [place] [address] Dr. lAex Doll BILI, CONJUGATED 0.2 mg/dL Normal 0.0-0.2 [facility] Comment on above: Performed By: #### T SH, LIVER #### [facility] [address] [place] [address] Dr. Alex Doll Bilirubin [Mass/Vol] 0.9 mg/dL Normal 0.2-1.0 [facility] Comment on above: Performed By: #### T SH, LIVER #### [facility] [address] [place] [address] Dr. Alex Doll Globulin (S) [Mass/Vol] 3.3 g/dL Normal [facility] Comment on above: Performed By: #### T SH, LIVER #### [facility] [address] [place] [address] Dr. Alex Doll Protein [Mass/Vol] 7.1 g/dL Normal 6.4-8.2 [facility] Comment on above: Performed By: #### T SH, LIVER #### [facility] [address] [place] [address] Dr. lAex Doll TSHon 10-23-2022 TSH 6.589 uIU/mL Critically high 0.358-3.740 [facility] Comment on above: Performed By: #### T SH, LIVER #### [facility] [address] [place] [address] Dr. Alex Doll XR CHEST 2 Von [...] by: MAKENNA RAMOS Date: 2022-10-23 08:46 Normal [facility] XR LSPINE 2_3 VIEWSon 2022 XR [...] MAKENNA RAMOS Date: 2022-10-17 09:43 Normal [facility] POINT OF CARE GLUCOSEon 12-30 Glucose [Mass/Vol] 154 mg/dL Critically high 74-106 [facility] Comment on above: Performed By: #### P OCGLUC #### [facility] [address] [address] [address] Alex Doll Covid-19 PCR ([facility])on 12-30 SARS-CoV-2 (COVID-19) RNA RICH+probe Ql (Unsp spec) Not detected Normal NOT DETECTED [facility] Comment on above: Result Comment: This test is not yet approved or cleared by the [place] FDA. When there are no FDA-approved or cleared tests available, and other criteria are met, FDA can make tests available under an emergency access mechanism called an Emergency Use Authorization (EUA). The EUA for this test is supported by the [employer] of Health and Human Service's (HHS's) declaration [...] Performed By: #### T SH, LIVER #### [facility] [address] [address] [address] Alex Doll Cardiovascular Lab Reporton 07-01-2021 Cardiovascular Lab Report [facility] Patient Name: Radha Pitts MR #: [id number] [facility] Physician: Benjamin Patel CNP Department of Service Date: 06/29/2021 Medicine Birthdate: 1950 Division of Room #: Cardiology Adult Cardiovascular Services [facility] [address] [address] Cardiovascular Laboratory Report FINAL IMPRESSIONS: 1. Mild [...] Hermosillo MD Date Trans: 07/01/2021 11:33 A/ FAHEEM_CORY:[id number] Normal [facility] CBC W/DIFFon 06-29-2021 ABS IMM GRANS 0.0 10*3/uL Normal 0.0-0.2 [facility] Comment on above: Performed By: #### 5 0103 #### [facility] [address] [facility] [place] [address], [facility] ABS NEUTROPHILS 4.2 10*3/uL Normal 1.6-7.6 The [facility] Comment on above: Performed By: #### 5 0103 #### [facility] [address] [facility] [place] [address], [facility] Basophils (Bld) [#/Vol] 0.0 10*3/uL Normal 0.0-0.2 [facility] Comment on above: Performed By: #### 5 0103 #### [facility] [address] [facility] [place] [address], [facility] Basophils/100 WBC (Bld) 0.6 % Normal 0.0-1.0 [facility] Comment on above: Performed By: #### 5 0103 #### [facility] [address] [facility] [place] [address], [facility] Eosinophils (Bld) [#/Vol] 0.1 10*3/uL Normal 0.0-0.5 [facility] Comment on above: Performed By: #### 5 0103 #### [facility] [address] [facility] [place] [address], [facility] Eosinophils/100 WBC (Bld) 1.3 % Normal 0.0-6.0 [facility] Comment on above: Performed By: #### 5 0103 #### [facility] [address] [facility] [place] [address], [facility] Erythrocyte distribution width (RBC) [Ratio] 12.7 % Normal 11.5-15.0 [facility] Comment on above: Performed By: #### 5 0103 #### [facility] [address] [place] [address], [facility] Hematocrit (Bld) [Volume fraction] 43.8 % Normal 39.0-50.0 [facility] Comment on above: Performed By: #### 5 0103 #### [facility] [address] [place] [address], [facility] Hemoglobin (Bld) [Mass/Vol] 14.5 g/dL Normal 13.0-17.0 [facility] Comment on above: Performed By: #### 5 0103 #### [facility] [address] [place] [address], [facility] IMMATURE GRANS 0.3 % Normal 0.0-1.[address] [facility] Comment on above: Performed By: #### 5 0103 #### [facility] [address] [place] [address], [facility] Lymphocytes (Bld) [#/Vol] 1.9 10*3/uL Normal 1.2-4.0 [facility] Comment on above: Performed By: #### 5 0103 #### [facility] [address] [place] [address], [facility] Lymphocytes/100 WBC (Bld) 28.5 % Normal 20.0-45.0 [facility] Comment on above: Performed By: #### 5 0103 #### [facility] [address] [place] [address], [facility] MCH (RBC) [Entitic mass] 32.7 pg Normal 27.0-33.0 [facility] Comment on above: Performed By: #### 5 0103 #### [facility] [address] [place] [address], [facility] MCHC (RBC) [Mass/Vol] 33.1 g/dL Normal 32.0-35.0 [facility] Comment on above: Performed By: #### 5 0103 #### [facility] [address] [place] [address], [facility] MCV (RBC) [Entitic vol] 98.9 fL High 82.0-98.0 [facility] Comment on above: Performed By: #### 5 0103 #### [facility] [address] [facility] [place] [address], [facility] Monocytes (Bld) [#/Vol] 0.5 10*3/uL Normal 0.1-1.0 [facility] Comment on above: Performed By: #### 5 0103 #### [facility] [address] [place] [address], [facility] MONOS 7.4 % Normal 5.0-12.0 [facility] Comment on above: Performed By: #### 5 0103 #### [facility] [address] [facility] [place] [address], [facility] Neutrophils/100 WBC (Bld) 61.9 % Normal 40.0-72.0 [facility] Comment on above: Performed By: #### 5 0103 #### [facility] [address] [facility] [place] [address], [facility] Nucleated RBC/100 WBC (Bld) [Ratio] 0 % Normal 0-0 [facility] Comment on above: Performed By: #### 5 0103 #### [facility] [address] [place] [address], [facility] PLAT CNT 249 10*3/uL Normal 150-400 [facility] Comment on above: Performed By: #### 5 3 #### [facility] [address] [place] [address], [facility] RBC (Bld) [#/Vol] 4.43 10*6/uL Normal 4.20-5.70 The [facility] Comment on above: Performed By: #### 5 0103 #### [facility] [address] [facility]. [address] WBC (Bld) [#/Vol] 6.74 10*3/uL Normal 4.00-10.60 [facility] Comment on above: Performed By: #### 5 0103 #### [facility] [address] [facility] Cardiovascular Lab Reporton 05-16-2021 Cardiovascular Lab Report [facility] Patient Name: Radha Pitts [facility] MR #: [id number] Physician: Aren Sparrow MD Department of Service Date: 05/16/2021 Medicine Birthdate: 1950 Division of Room #: CC Cardiology Adult Cardiovascular Services [address] [address] Cardiovascular Laboratory Report DIRECT CARDIOVERSION PROCEDURE NOTE Date: 05/16/2021. Type of procedure: DC Cardioversion. Performed by: Aren Sparrow MD. Informed consent: Signed by patient. Indication: Afib. 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 11/23/2020 9:19 PM Signed No show Referring Provider: VALENTINE THURMAN [[id number]] Allergies As of Date: 11/23/2020 Noted Allergy [...] List As Of Date 11/23/2020 Noted Resolved long-term current use of anticoagulant [Z79.01] 06/01/2020 Atrial fibrillation (HCC) [I48.91] 06/01/2020 Encounter Status:Closed by RULA ALLEN on 11/23/20 [facility] CNOVSPon 11-12-2020 CNOVSP Visit (SP) Office ([facility]) RADHA PITTS ([id number]) 1950 M Date Time Provider Department 11/12/20 9:00 AM VALENTINE THURMAN During your visit today, we recorded the following information about you: Temperature Pulse Respiration Blood pressure 97.3 degrees 70/minute 16/minute 476/92 Weight Height 94.3 kg 1.702 m Valetnine Thurman MD 11/12/2020 9:25 AM Signed PATIENT NAME: Radha Pitts CLINIC NO.: [id number] ATTENDING PHYSICIAN: Valentine Thurman MD DATE OF SERVICE: November 12, [address] Valentine Thurman [address] [place] [address] here is an update on a follow [...] do not hesitate to contact me at [phone]. Valentine Thurman MD Hematology/Medical Oncology [facility] 15 I spent a total of 15 minutes on the date of the service which included preparing to see the patient, [id number] patient care, completing clinical documentation, obtaining and/or reviewing separately obtained history and ordering medications, tests, or procedures. Medical Decision Making CC: Referring Provider: VALENTINE THURMAN [[id number]] Allergies As of Date: 11/12/2020 Noted Allergy Reaction CLINDAMYCIN PHOSPHATE 12/12/2018 7 - Swelling Date Reviewed: 11/12/2020 Reviewed by: Praveena Pritchard MA - Fully Assessed Reason for Visit: A-fib [167] Cmt: 5 month follow up Primary Visit Diagnosis:Malignant neoplasm of urinary bladder, unspecified site (HCC) [C67.9] Other Visit Diagnosis (more content not included)... Normal [facility] Noni 11-12-2020 CNPN Telephone ([facility]) RADHA PITTS ([id number]) 1950 [place] Date Time Provider Department 11/12/20 VALENTINE THURMAN During your visit today, we recorded the following information about you: Stacie Aaron Sec 11/12/2020 1:11 PM Signed Patient is seeing Dr. [facility] in [place]. appt on 12-02-20 1:10pm [place] office. Diya, Please fax his records with the info in your mailbox. Thank you Julia Francis [facility] 11/15/2020 10:30 AM Signed Records faxed. [...] List As Of Date 11/12/2020 Noted Resolved long-term current use of anticoagulant [Z79.01] 06/01/2020 Atrial fibrillation (HCC) [I48.91] 06/01/2020 Encounter Status:Closed by JULIA CHRISTY on 11/15/[address] [facility] BASIC METABOLIC PANELon 07-04 Anion gap [Moles/Vol] 15 mmol/L Normal 11-13 [facility] Comment on above: Performed By: #### L [id number] ####[place] [phone] Calcium [Mass/Vol] 9.7 mg/dL Normal 8.5-10.5 [facility] Comment on above: Performed By: #### L [id number] ####[place] [phone] Chloride [Moles/Vol] 100 mmol/L Normal 96-110 [facility] Comment on above: Performed By: #### L AB064 ####[place] [phone] CO2 [Moles/Vol] 24 mmol/L Normal 19-32 [facility] Comment on above: Performed By: #### L AB064 ####[place] [phone] Creatinine [Mass/Vol] 0.6 mg/dL Normal 0.5-1.4 [facility] Comment on above: Performed By: #### L AB064 ####[place] [phone] GFR/1.73 sq M.predicted MDRD (S/P/Bld) [Vol rate/Area] 103 ML/MIN/1.73M2 Normal [facility] Comment on above: Result Comment: IF THE PATIENT IS , PLEASE MULTIPLY THIS BY 1.159. THIS RESULT HAS BEEN CALCULATED ASSUMING THE PATIENT IS NON- Performed By: #### L AB064 ####[place] [phone] Glucose [Mass/Vol] 127 mg/dL High 70-99 [facility] Comment on above: Performed By: #### L AB064 ####[place] [phone] Potassium [Moles/Vol] 4.4 mmol/L Normal 3.4-5.3 [facility] Comment on above: Performed By: #### L AB064 ####[place] [phone] Sodium [Moles/Vol] 139 mmol/L Normal 135-148 [facility] Comment on above: Performed By: #### L AB064 ####[place] [phone] Urea nitrogen [Mass/Vol] 15 mg/dL Normal 3-29 [facility] Comment on above: Performed By: #### L AB064 ####[place] [phone] Urea nitrogen/Creatinine [Mass ratio] 25 (CALC) Normal 7.0-25.0 [facility] Comment on above: Performed By: #### L [id number] ####[place] [phone] EKG Standardon 07-31-2019 EKG Standard Ventricular Rate: 65 BPM Atrial Rate: 65 BPM P-R Interval: 184 ms QRS Duration: 106 ms Q-T Interval: 424 ms QTC Calculation(Bazett): 440 ms Calculated P Rena Lara: 49 degrees Calculated R Rena Lara: 27 degrees Calculated T Rena Lara: 53 degrees Diagnosis: Sinus rhythm with premature supraventricular complexes and with occasional premature ventricular complexes Incomplete right bundle branch block Nonspecific T wave abnormality Abnormal ECG Normal [facility] EKG Standard Ventricular Rate: 84 BPM Atrial Rate: 288 BPM QRS Duration: 98 ms Q-T Interval: 376 ms QTC Calculation(Bazett): 444 ms Calculated R Rena Lara: 36 degrees Calculated T Rena Lara: 61 degrees Diagnosis: Atrial fibrillation Nonspecific T wave abnormality Abnormal ECG Normal [facility] PROTHROMBIN TIMEon 0 INR Coag (PPP) [Relative time] 1.6 {INR} High 0.9-1.1 [facility] Comment on above: Result Comment: MODERATE-INTENSITY WARFARIN THERAPY: 2.0-3.0 HIGHER-INTENSITY WARFARIN THERAPY: 3.0-4.0 Performed By: #### L [id number] #### [place] [address] PT Coag (PPP) [Time] 18.5 s High 11.7-13.9 [facility] Comment on above: Performed By: #### L [id number] #### [place] [address] ACCUCHECK GLUCOSEon 12-07-19 19 Glucose [Mass/Vol] 198 mg/dL High 70-99 [facility] Comment on above: Result Comment: NURS E AWARE Performed By: #### L [id number] #### [place] [address] BASIC METABOLIC PANELon Anion gap [Moles/Vol] 11 mmol/L Normal 5-15 [facility] Comment on above: Performed By: #### L [id number] #### [place] [address] Calcium [Mass/Vol] 8.8 mg/dL Normal 8.5-10.5 [facility] Comment on above: Performed By: #### L [id number] #### [place] [address] Chloride [Moles/Vol] 97 mmol/L Normal 96-110 [facility] Comment on above: Performed By: #### L [id number] #### [place] [address] CO2 [Moles/Vol] 31 mmol/L Normal 19-32 [facility] Comment on above: Performed By: #### L [id number] #### [place] [address] Creatinine [Mass/Vol] 0.6 mg/dL Normal 0.5-1.4 [facility] Comment on above: Performed By: #### L [id number] #### [place] [address] GFR/1.73 sq M.predicted MDRD (S/P/Bld) [Vol rate/Area] 104 ML/MIN/1.73M2 Normal [facility] Comment on above: Result Comment: IF THE PATIENT IS , PLEASE MULTIPLY THIS BY 1.159. THIS RESULT HAS BEEN CALCULATED ASSUMING THE PATIENT IS NON- Performed By: #### L [id number] #### [place] [address] Glucose [Mass/Vol] 170 mg/dL High 70-99 [facility] Comment on above: Performed By: #### L [id number] #### [place] [address] Potassium [Moles/Vol] 4.1 mmol/L Normal 3.4-5.3 [facility] Comment on above: Performed By: #### L [id number] #### [place] [address] Sodium [Moles/Vol] 139 mmol/L Normal 135-148 [facility] Comment on above: Performed By: #### L [id number] #### [place] [address] Urea nitrogen [Mass/Vol] 8 mg/dL Normal 3-29 [facility] Comment on above: Performed By: #### L [id number] #### [place] [address] Urea nitrogen/Creatinine [Mass ratio] 13 (CALC) Normal 7.0-25.0 [facility] Comment on above: Performed By: #### L [id number] #### [place] [address] COMPLETE BLOOD COUNTon 12-06 Erythrocyte distribution width (RBC) [Ratio] 12.8 % Normal 9.0-15.0 [facility] Comment on above: Performed By: #### L [id number] #### [place] [address] Hematocrit (Bld) [Volume fraction] 40.4 % Low 41.0-50.0 [facility] Comment on above: Performed By: #### L [id number] #### [place] [address] Hemoglobin (Bld) [Mass/Vol] 13.9 g/dL Normal 13.8-17.2 [facility] Comment on above: Performed By: #### L [id number] #### [place] [address] MCH (RBC) [Entitic mass] 32.2 pg Normal 27.0-33.0 [facility] Comment on above: Performed By: #### L [id number] #### [place] [address] MCHC (RBC) [Mass/Vol] 34.4 g/dL Normal 32.0-36.0 [facility] Comment on above: Performed By: #### L [id number] #### [place] [address] MCV (RBC) [Entitic vol] 93.5 fL Normal 80.0-100.0 [facility] Comment on above: Performed By: #### L [id number] #### [place] [address] Platelets (Bld) [#/Vol] 264 10*3/uL Normal 130-400 [facility] Comment on above: Performed By: #### L [id number] #### [place] [address] RBC (Bld) [#/Vol] 4.32 M/MM3 Low 4.40-5.80 [facility] Comment on above: Performed By: #### L [id number] #### [place] [address] WBC (Bld) [#/Vol] 9.1 10*3/uL Normal 3.8-10.8 [facility] Comment on above: Performed By: #### L [id number] #### [address] PROTHROMBIN TIMEon 9 INR Coag (PPP) [Relative time] 2.2 {INR} High 0.9-1.1 [facility] Comment on above: Result Comment: MODERATE-INTENSITY WARFARIN THERAPY: 2.0-3.0 HIGHER-INTENSITY WARFARIN THERAPY: 3.0-4.0 Performed By: #### L [id number] #### [address] PT Coag (PPP) [Time] 23.5 s High 11.7-13.9 [facility] Comment on above: Performed By: #### L [id number] #### [address] ACCUCHECK GLUCOSEon 12-06-19 19 Glucose [Mass/Vol] 293 mg/dL High [address] [place] [address] Comment on above: Result Comment: NURS E AWARE Performed By: #### L [id number] #### [address] Glucose [Mass/Vol] 131 mg/dL High [address] [place] [address] Comment on above: Result Comment: NURS E AWARE Performed By: #### L [id number] #### [address] Glucose [Mass/Vol] 311 mg/dL High [address] [place] [address] Comment on above: Result Comment: NURS E AWARE Performed By: #### L [id number] #### [place] [address] Glucose [Mass/Vol] 169 mg/dL High [address] [place] [address] Comment on above: Performed By: #### L [id number] #### [place] [address] Glucose [Mass/Vol] 243 mg/dL High [address] [place] [address] Comment on above: Result Comment: NURS E AWARE Performed By: #### L [id number] #### [place] [address] BASIC METABOLIC PANELon 06-0 Anion gap [Moles/Vol] 10 mmol/L Normal 5-15 [facility] Comment on above: Performed By: #### L [id number] #### [place] [address] Calcium [Mass/Vol] 8.8 mg/dL Normal 8.5-10.5 [facility] Comment on above: Performed By: #### L [id number] #### [place] [id number] Chloride [Moles/Vol] 100 mmol/L Normal 96-110 [facility] Comment on above: Performed By: #### L [id number] #### [place] [id number] CO2 [Moles/Vol] 29 mmol/L Normal 19-32 [facility] Comment on above: Performed By: #### L [id number] #### [place] [id number] Creatinine [Mass/Vol] 0.6 mg/dL Normal 0.5-1.4 [facility] Comment on above: Performed By: #### L [id number] #### [place] [id number] GFR/1.73 sq M.predicted MDRD (S/P/Bld) [Vol rate/Area] 104 ML/MIN/1.73M2 Normal [facility] Comment on above: Result Comment: IF THE PATIENT IS , PLEASE MULTIPLY THIS BY 1.159. THIS RESULT HAS BEEN CALCULATED ASSUMING THE PATIENT IS NON- Performed By: #### L [id number] #### [place] [address] Glucose [Mass/Vol] 222 mg/dL High 70-99 [facility] [facility] [place] Comment on above: Performed By: #### L [id number] #### [place] [address] Potassium [Moles/Vol] 4.1 mmol/L Normal 3.4-5.3 [facility] [place] Comment on above: Performed By: #### L [id number] #### [place] [id number] Sodium [Moles/Vol] 139 mmol/L Normal 135-148 [facility] [place] Comment on above: Performed By: #### L [id number] #### [place] [id number] Urea nitrogen [Mass/Vol] 14 mg/dL Normal 3-29 [facility] [place] Comment on above: Performed By: #### L [id number] #### [place] [id number] Urea nitrogen/Creatinine [Mass ratio] 25 (CALC) Normal 7.0-25.0 [facility] [place] Comment on above: Performed By: #### L [id number] #### [place] [id number] Anion gap [Moles/Vol] 10 mmol/L Normal 5-15 [facility] [place] Comment on above: Performed By: #### L [id number] #### [place] [id number] Calcium [Mass/Vol] 9.3 mg/dL Normal 8.5-10.5 [facility] [place] Comment on above: Performed By: #### L [id number] #### [place] [id number] Chloride [Moles/Vol] 98 mmol/L Normal 96-110 [facility] [place] Comment on above: Performed By: #### L [id number] #### [place] [id number] CO2 [Moles/Vol] 29 mmol/L Normal 19-32 [facility] Comment on above: Performed By: #### L [id number] #### [place] [address] Creatinine [Mass/Vol] 0.6 mg/dL Normal 0.5-1.4 [facility] [place] Comment on above: Performed By: #### L [id number] #### [place] [id number] GFR/1.73 sq M.predicted MDRD (S/P/Bld) [Vol rate/Area] 104 ML/MIN/1.73M2 Normal [facility] [place] Comment on above: Result Comment: IF THE PATIENT IS , PLEASE MULTIPLY THIS BY 1.159. THIS RESULT HAS BEEN CALCULATED ASSUMING THE PATIENT IS NON- Performed By: #### L [id number] #### [place] [id number] Glucose [Mass/Vol] 193 mg/dL High 70-99 [facility] [place] Comment on above: Performed By: #### L AB064 #### [place] [id number] Potassium [Moles/Vol] 5.0 mmol/L Normal 3.4-5.3 [facility] [place] Comment on above: Performed By: #### L [id number] #### [place] [id number] Sodium [Moles/Vol] 137 mmol/L Normal 135-148 [facility] [place] Comment on above: Performed By: #### L AB064 #### [place] [address] Urea nitrogen [Mass/Vol] 13 mg/dL Normal 3-29 [facility] [place] Comment on above: Performed By: #### L [id number] #### [place] [id number] Urea nitrogen/Creatinine [Mass ratio] 23 (CALC) Normal 7.0-25.0 [facility] [place] Comment on above: Performed By: #### L [id number] #### [place] [address] COMPLETE BLOOD COUNTon 12-05 Erythrocyte distribution width (RBC) [Ratio] 13.0 % Normal 9.0-15.0 [facility] [place] Comment on above: Performed By: #### L AB118 #### [place] [address] Hematocrit (Bld) [Volume fraction] 40.7 % Low 41.0-50.0 [facility] [place] Comment on above: Performed By: #### L AB118 #### [place] [address] Hemoglobin (Bld) [Mass/Vol] 13.6 g/dL Low 13.8-17.2 [facility] [place] Comment on above: Performed By: #### L AB118 #### [place] [address] MCH (RBC) [Entitic mass] 31.1 pg Normal 27.0-33.0 [facility] [place] Comment on above: Performed By: #### L AB118 #### [place] [address] MCHC (RBC) [Mass/Vol] 33.4 g/dL Normal 32.0-36.0 [facility] [place] Comment on above: Performed By: #### L AB118 #### [place] [address] MCV (RBC) [Entitic vol] 93.3 fL Normal 80.0-100.0 [facility] [place] Comment on above: Performed By: #### L AB118 #### [place] [address] Platelets (Bld) [#/Vol] 260 10*3/uL Normal 130-400 [facility] [place] Comment on above: Performed By: #### L AB118 #### [place] [address] RBC (Bld) [#/Vol] 4.36 M/MM3 Low 4.40-5.80 [facility] Comment on above: Performed By: #### L AB118 #### [place] [address] WBC (Bld) [#/Vol] 8.4 10*3/uL Normal 3.8-10.8 [facility] [place] Comment on above: Performed By: #### L AB118 #### [place] [address] COMPLETE BLOOD COUNT WITH DI FFERENTIALon 12-05-2018 ABSOLUTE BASOPHIL 0.0 K/MM3 Normal 0.0-0.3 [facility] Comment on above: Performed By: #### L [id number] #### [place] [address] ABSOLUTE SEGMENTED NEUTROPHIL 6.8 K/MM3 Normal 1.5-7.8 [facility] [place] Comment on above: Performed By: #### L [id number] #### [place] [address] Basophils/100 WBC (Bld) 0.3 % Normal 0.0-2.0 [facility] [place] Comment on above: Performed By: #### L [id number] #### [place] [address] Eosinophils (Bld) [#/Vol] 0.2 10*3/uL Normal 0.0-0.6 [facility] [place] Comment on above: Performed By: #### L [id number] #### [place] [address] Eosinophils/100 WBC (Bld) 2.7 % Normal 0.0-7.0 [facility] [place] Comment on above: Performed By: #### L [id number] #### [place] [address] Erythrocyte distribution width (RBC) [Ratio] 13.0 % Normal 9.0-15.0 [facility] [place] Comment on above: Performed By: #### L [id number] #### [place] [address] Hematocrit (Bld) [Volume fraction] 42.7 % Normal 41.0-50.0 [facility] [place] Comment on above: Performed By: #### L [id number] #### [place] [address] Hemoglobin (Bld) [Mass/Vol] 14.4 g/dL Normal 13.8-17.2 [facility] [place] Comment on above: Performed By: #### L [id number] #### [place] [phone] Lymphocytes (Bld) [#/Vol] 1.0 10*3/uL Normal 0.9-4.1 [facility] [place] Comment on above: Performed By: #### L [id number] #### [place] [id number] Lymphocytes/100 WBC (Bld) 11.5 % Low 14.0-51.0 [facility] [place] Comment on above: Performed By: #### L [id number] #### [place] [phone] MCH (RBC) [Entitic mass] 31.8 pg Normal 27.0-33.0 [facility] [place] Comment on above: Performed By: #### L [id number] #### [place] [phone] MCHC (RBC) [Mass/Vol] 33.8 g/dL Normal 32.0-36.0 [facility] [place] Comment on above: Performed By: #### L [id number] #### [place] [address] MCV (RBC) [Entitic vol] 94.0 fL Normal 80.0-100.0 [facility] [place] Comment on above: Performed By: #### L [id number] #### [place] [address] Monocytes (Bld) [#/Vol] 0.6 10*3/uL Normal 0.2-1.1 [facility] [place] Comment on above: Performed By: #### L [id number] #### [place] [address] Monocytes/100 WBC (Bld) 7.3 % Normal 0-14.0 [facility] [place] Comment on above: Performed By: #### L [id number] #### [place] [address] Platelets (Bld) [#/Vol] 265 10*3/uL Normal 130-400 [facility] [place] Comment on above: Performed By: #### L [id number] #### [place] [address] RBC (Bld) [#/Vol] 4.54 M/MM3 Normal 4.40-5.80 [facility] Comment on above: Performed By: #### L [id number] #### [place] [address] Segmented neutrophils/100 WBC (Bld) 78.2 % High 40.0-76.0 [facility] [place] Comment on above: Performed By: #### L [id number] #### [place] [address] WBC (Bld) [#/Vol] 8.7 10*3/uL Normal 3.8-10.8 [facility] [place] Comment on above: Performed By: #### L [id number] #### [place] [address] CT EXTREMITY LOWER RIGHT WIT HOUT CONTRASTon [...] IDENTIFIED. DICTATED BY: DAREN MORTENSEN M.D. Workstation ID:[id number] cellultis Normal [facility] [place] HEMOGLOBIN A1Con 12-05-2018 HbA1c (Bld) [Mass fraction] 177 MG/DL Normal [facility] [place] Comment on above: Performed By: #### L [id number] #### [place] [address] HbA1c (Bld) [Mass fraction] [facility] [place] Normal [facility] [place] Comment on above: Performed By: #### L [id number] #### [place] [address] HbA1c (Bld) [Mass fraction] 7.8 % TOTAL HGB High [facility] [place] Comment on above: Result Comment: (NOT E) The [place] Diabetic Association recommends the following guidelines: 5.7-6.4% Indicates increased risk for diabetes (Prediabetes). > 6.5% Diagnostic of diabetes. In the absence of unequivocal hyperglycemia, results should be confirmed by repeat test. < 7% Glycemic recommendation for non adults with diabetes. [place] Diabetes Association, Standards of Medical Care in Diabetes, Volume 40; 2017 Performed By: #### L [id number] #### [place] [address] PROTHROMBIN TIMEon 9 INR Coag (PPP) [Relative time] 3.5 {INR} High 0.9-1.1 [facility] [place] Comment on above: Result Comment: MODERATE-INTENSITY WARFARIN THERAPY: 2.0-3.0 HIGHER-INTENSITY WARFARIN THERAPY: 3.0-4.0 Performed By: #### L [id number] #### [place] [address] PT Coag (PPP) [Time] 33.7 s High 11.7-13.9 [facility] [place] Comment on above: Performed By: #### L [id number] #### [place] [address] INR Coag (PPP) [Relative time] 3.7 {INR} High 0.9-1.1 [facility] [place] Comment on above: Result Comment: MODERATE-INTENSITY WARFARIN THERAPY: 2.0-3.0 HIGHER-INTENSITY WARFARIN THERAPY: 3.0-4.0 Performed By: #### L [id number] #### [place] [address] PT Coag (PPP) [Time] 35.6 s High 11.7-13.9 [facility] [place] Comment on above: Performed By: #### L [id number] #### [place] [address] XR FOOT RIGHT MINIMUM 3 VIEW Son [...] REMOVED. DICTATED BY: DAREN MORTENSEN M.D. Workstation ID:[id number] Pt is c/o stepping on a insulin needle on Sunday and it was removed here. Pt was placed on antibiotic. Pt is now complaining of pain and swelling to the bottom of his right foot. Pt has redness going up his leg Normal [facility] [place] XR FOOT RIGHT MINIMUM 3 VIEW Son [...] TOE. DICTATED BY: DAREN MORTENSEN M.D. Workstation ID:[id number] Pt arrived to ER c/o right foot pain . Pt states bottom of foot is painful and has been for a couple of days. Pt states pain with palpation. Denies injury. Normal [facility] Encounters Encounter Date Encounter Type Care Provider Facility Start: 03-06-2025 End: [facility] Start: 02-25-2025 End: 02-25-2025 Emergency department patient visit [facility] Start: 11-25-2024 End: 11-25-2024 Emergency department patient visit [facility] Start: 10-23-2024 End: 10-23-2024 ambulatory BENJAMIN [facility] Start: 09-17-2024 Evaluation and management of inpatient [facility] Start: 09-17-2024 ambulatory [facility] Start: 09-17-2024 End: 09-18-2024 Evaluation and management of inpatient [facility] Start: 09-08-2024 End: 09-08-2024 Emergency department patient visit [facility] Start: 09-01-2024 End: 09-01-2024 Emergency department patient visit [facility] Start: 06-18-2024 End: 06-18-2024 ambulatory Abelardo MATTA Facility:[facility] Start: 06-18-2024 End: 06-18-2024 Patient encounter procedure Abelardo MATTA [facility] Start: 06-17-2024 End: 06-17-2024 ambulatory AREN [facility] Start: 06-03-2024 End: 06-03-2024 ambulatory Abelardo MATTA Facility:[facility] Start: 06-03-2024 End: 06-03-2024 Patient encounter procedure Abelardo MATTA [facility] Start: 04-22-2024 End: 04-22-2024 ambulatory AREN [facility] Start: 12-07-2023 ambulatory Abelardo MATTA Facility:[facility] Start: 11-21-2022 ambulatory NARENDRANATH LAKSHMIPATHY . Facility:[facility] [...] FAWWAD Facility:[facility] Start: 06-01-2022 End: 07-02-2022 ambulatory SHAIKH Brittany SKINNERD Facility:[facility] Start: 05-11-2022 End: 05-12-[address] PHILIP DA SILVA . Facility:[facility] Start: 05-02-2022 End: 05-31-2022 ambulatory SHAIKH Brittany SKINNERD Facility:[facility] Start: 04-02-2022 End: 05-01-2022 ambulatory ONTIVEROS H FANicciWAD Facility:[facility] Start: 03-02-2022 End: 04-01-2022 ambulatory ONTIVEROS H FANicciWAD Facility:[facility] Start: 02-02-2022 End: 02-03-2022 ambulatory DIANA ISAI . Facility:[facility] Start: 01-30-2022 End: 03-01-2022 ambulatory SHAIKH Brittany SKINNERD Facility:[facility] Start: 01-17-2022 End: 01-17-[address] PHILIP DA SILVA . Facility: Start: 2022 Encounter for preprocedural laboratory examination DR VARSHA RANDHAWA . [facility] Start: 01-12-2022 End: [address] VARSHA RANDHAWA . Facility: Start: 01-12-2022 End: 2022 Encounter for preprocedural laboratory examination DR VARSHA RANDHAWA . Facility: Start: 01-02-2022 End: 01-27-2022 ambulatory ONTIVEROS Brittany SKINNERD Facility: Start: 06-07-2021 End: 06-11-2021 ambulatory PHYSICIAN UNKNOWN Facility:[facility] Start: 05-16-2021 End: 05-17-2021 ambulatory PHYSICIAN UNKNOWN Facility:[facility] Start: 04-18-2021 End: 04-19-2021 ambulatory BENJAMIN BELEN Facility:[facility] Start: 05-24-2020 End: 05-24-2020 Chart abstracting Valentine Thurman Work Phone: Hematology/Oncology Start: 05-24-2020 End: 05-24-2020 Patient encounter procedure External Provider [facility] Start: 05-24-2020 Results Only External Provider Exter nal-NonCCF Procedures Date Procedure Procedure Detail Performing Clinician Start: 05-24-2020 EXTERNAL LAB External P rotalder Start: 05-24-2020 EXTERNAL PROCEDURE Exte rnal Provider Cardiac ablation usi ng fluoroscopy guidance Abelardo BULLJoseluis Tonsillectomy Abelardo BULLJoseluis Transurethral resect ion of bladder neoplasm Abelardo BULLJoseluis Vasectomy Abelardo MATTA Plan of Treatment Date Care Activity Detail Author Start: 03-02-2020 Influenza vaccination INFLUENZA (#1) [facility] Start: 01-06-2019 Urine microalbumin profile DTAP,TDAP ,TD (2 - Td) [facility] Start: 03-13-2017 PNEUMOVAX AGE 65 AND OVER WITH 5YR LOOKBACK (#1) PNEUMOVAX AGE 65 AND OVER WITH 5YR LOOKBACK (#1) [facility] Start: 01-14-2016 ADVANCE DIRECTIVE DISCUSSION ADVANCE DIRECTIVE DISCUSSION [facility] Start: 2001 COLORECTAL CANCER SCREENING,SEE MODIFIER COLORECTAL CANCER SCREENING,SEE MODIFIER [facility] Start: 2001 SHINGRIX VACCINE (1 of 2) BROWN GRIX VACCINE (1 of 2) [facility] Start: 01-14-1996 DIABETES SCREEN DIABETES SCREEN [facility] Start: 1986 LIPID SCREEN LIPID SCREEN [facility] Start: 1969 HEPATITIS C SCREENING HEPATITIS C [place] [facility] Immunizations Immunization Date Immunization Notes Care Provider June maloney 05-20-2019 influenza, high dose seasonal, preservative-free External Provider [facility] 01-08-2019 pneumococcal conjuga te vaccine, 13 valent External Provider [facility] 04-09-2018 influenza, high dose seasonal, preservative-free External Provider [facility] 04-18-2013 influenza, injectabl e, quadrivalent, contains preservative External Provider [facility] 06-22-2012 influenza, injectabl e, quadrivalent, contains preservative External Provider [facility] 03-13-2012 influenza, injectabl e, quadrivalent, contains preservative External Provider [facility] 03-13-2012 pneumococcal polysaccharide vaccine, 23 valent External Provider [facility] 03-13-2012 pneumococcal vaccine , unspecified formulation External Provider [facility] 01-06-2009 tetanus toxoid, redu leticia diphtheria toxoid, and acellular pertussis vaccine, adsorbed External Provider [facility] Payers Date Payer Category Payer Medicare HUMANA MEDICARE HU[employer]NA MEDICARE PPO [id number] 2019-Present PPO [id number] 1959 Private Health Insurance [id number] 1950 Unknown [id number] 2.16.840.1.536814.3.579.2 .647 1950 Unknown [id number] 2.16.840.1.405014.3.579.2 .647 1951 Unknown [id number] 2.16.840.1.911402.3.579.2 .647 1951 Unknown [id number] 2.16.840.1.494545.3.579.2 .593 1951 Unknown [id number] 2.16.840.1.463106.3.579.2 .593 1951 Unknown [id number] 2.16.840.1.794162.3.579.2 .593 1951 Unknown [id number] 2.16.840.1.601359.3.579.2 .593 1951 Unknown [id number] 2.16.840.1.342174.3.579.2 .593 1951 Unknown [id number] 2.16.840.1.906736.3.579.2 .593 1951 Unknown [id number] 2.16.840.1.749700.3.579.2 .593 1951 Unknown [id number] 2.16.840.1.258682.3.579.2 .593 1951 Unknown [id number] 2.16.840.1.791469.3.579.2 .593 1951 Unknown [id number] 2.16.840.1.284409.3.579.2 .593 1951 Unknown [id number] 2.16.840.1.336084.3.579.2 .593 1951 Unknown [id number] 2.16.840.1.892333.3.579.2 .593 1951 Unknown [id number] 2.16.840.1.799397.3.579.2 .593 1951 Unknown [id number] 2.16.840.1.631205.3.579.2 .593 1951 Unknown [id number] 2.16.840.1.589035.3.579.2 .593 1951 Unknown [id number] 2.16.840.1.538060.3.579.2 .593 1951 Unknown [id number] 2.16.840.1.367868.3.579.2 .593 1951 Unknown [id number] 2.16.840.1.207534.3.579.2 .593 1951 Unknown [id number] 2.16.840.1.525613.3.579.2 .593 1951 Unknown [id number] 2.16.840.1.711353.3.579.2 .593 1951 Unknown [id number] 2.16.840.1.454216.3.579.2 .593 1951 Unknown [id number] 2.16.840.1.607057.3.579.2 .593 1951 Unknown [id number] 2.16.840.1.134745.3.579.2 .727 1951 Unknown [id number] 2.16.840.1.062476.3.579.2 .727 1951 Unknown [id number] 2.16.840.1.615869.3.579.2 .1286 1951 Unknown [id number] 2.16.840.1.388199.3.579.2 .1286 1951 Unknown [id number] 2.16.840.1.218588.3.579.2 .1286 1951 Unknown [id number] 2.16.840.1.244229.3.579.2 .1286 Social History Date Type Detail Facility Start: 05-24-2020 Tobacco smoking stat NHIS Former smoker [facility] Start: 05-24-2020 Tobacco use and exposure Never used [facility] Sex Assigned At Not on file [facility] Exposure to SARS-CoV -2 (event) Unable to assess [facility] Tobacco smoking status No Smokin g Status Entered [facility] [employer] Sex Assigned At Male [facility] Clinical Notes 11-12-2020 to 03-06-2025 Note Date & Type Note Facility 03-06-2025 Note SUBJECTIVE Reason for Visit: Radha Pitts is a 75 y.o. year old male patient being seen for 3-month follow-up visit. HPI: Radha Pitts is a 75 y.o. year old male with significant medical history of CAD, HFrEF no HFimpEF (EF 60% ON 01/30/2025), hyperlipidemia, hypertension, and DM on insulin. Recently presented to the emergency department in [facility] on 02/25/2025 for weakness for the past past prior days and had fall and abrasion of his left elbow. Patient endorsed dizziness at the time. Patient reports he fell against the wall. Denied hitting his head. 03/06/2025 office visit: Patient was seen and evaluated in the office today. He reports falling about 1 week ago or so approximately. He states he was getting out of bed he felt dizzy and fell into his wall. Denied hitting his head. This is the first episode that he has experienced. He had called EMS and was transported to [facility] where workup was unremarkable. Since then he has not experienced any further episodes. He notes his blood pressures around that time were normal and not any lower than his usual. He adamantly denies any chest pain, palpitations, shortness of breath, lightheadedness or dizziness, or lower extremity edema. 10/23/2024 office visit (Benjamin Patel NP): He has been feeling well since his recent a.fib abltion procedure. He did have some right groin bruising that has almost resolved. Beginning of August he was in the ER for uncontrolled HTN. BP at home has been running higher, 150s/80s. Denies c/o CP, dyspnea, orthopnea, PND, LE edema, dizziness/LH, palpitations, syncope. Medical History[1] Surgical History[2] Problem List[3] family history is not on file. Social History[4] OBJECTIVE Visit Vitals Smoking Status Former Physical Exam Constitutional: General Appearance: well-developed, appears stated age. Level of Distress: no acute distress. Neck: Jugular Veins: normal jugular venous pressure. Lungs: Auscultation: no rales or rhonchi and normal breath sounds. Cardiovascular: Rate And Rhythm: regular Heart Sounds: normal S1 and s2; Systolic Murmur: not heard. Diastolic Murmur: not heard. Extremities: no edema Peripheral Pulses: Pulses: full and equal in all extremities except if noted. Abdomen: Inspection and Palpation: non distended or tender and soft. Musculoskeletal: Inspection: no joint tenderness or swelling. Neurologic: Gait: normal gait. Psychiatric: Mental Status: alert and normal affect. Skin: Inspection and Palpation: warm and dry. Allergies: Allergies[5] Outpatient Medications: Current Outpatient Medications Medication Instructions amiodarone (PACERONE) 200 mg, oral, Once Daily apixaban (ELIQUIS) 5 mg, oral, 2 times daily aspirin 81 mg chewable tablet Chew 1 tablet every day by oral route. atorvastatin (Lipitor) 80 mg tablet Take 1 tablet every day by oral route. empagliflozin (JARDIANCE) 25 mg, oral, Daily folic acid (Folvite) 1 mg tablet TAKE ONE PILL BY MOUTH ON THE DAYS NOT TAKING THE METHOTREXATE. insulin NPH and regular human (NovoLIN) 100 unit/mL (70-30) injection 2 times daily before meals, 24 units am, 12 units pm lisinopril 5 mg, oral, Daily lisinopril 5 mg, oral, Once Daily metFORMIN (Glucophage) 1,000 mg tablet Take 1 tablet twice a day by oral route for 90 days. methotrexate 2.5 mg tablet TAKE 4 TABLETS BY MOUTH ONCE WEEKLY ON SUNDAY metoprolol succinate XL (TOPROL-XL) 25 mg, oral, Daily, Do not crush or chew. multivitamin tablet 1 tablet, oral, Daily Recent Labs: Admission on 09/17/2024, Discharged on 09/18/2024 Component Date Value Ventricular Rate 09/17/2024 45 Atrial Rate 09/17/2024 45 ND Interval 09/17/2024 222 QRS DURATION 09/17/2024 104 QT Interval 09/17/2024 498 QTC CALCULATION(BAZETT) 09/17/2024 430 P Rena Lara 09/17/2024 9 R-Rena Lara 09/17/2024 35 T Wave Rena Lara 09/17/2024 64 Protime 09/17/2024 13.9 INR 09/17/2024 1.08 Ventricular Rate 09/17/2024 61 Atrial Rate 09/17/2024 61 ND Interval 09/17/2024 190 QRS DURATION 09/17/2024 116 QT Interval 09/17/2024 458 QTC CALCULATION(BAZETT) 09/17/2024 461 P Rena Lara 09/17/2024 68 R-Rena Lara 09/17/2024 33 T Wave Rena Lara 09/17/2024 47 POCT ACT 09/17/2024 303 (A) QC Pass/Fail 09/17/2024 Passed QC LOT # 09/17/2024 8 QC Expiration Date 09/17/2024 73,125 POCT ACT 09/17/2024 370 (A) QC Pass/Fail 09/17/2024 Passed QC LOT # 09/17/2024 8 QC Expiration Date 09/17/2024 73,125 POCT ACT 09/17/2024 269 (A) QC Pass/Fail 09/17/2024 Passed QC LOT # 09/17/2024 8 QC Expiration Date 09/17/2024 73,125 POCT ACT 09/17/2024 276 (A) QC Pass/Fail 09/17/2024 Passed QC LOT # 09/17/2024 8 QC Expiration Date 09/17/2024 73,125 POCT ACT 09/17/2024 193 (A) QC Pass/Fail 09/17/2024 Passed QC LOT # 09/17/2024 8 QC Expiration Date 09/17/2024 73,125 POCT ACT 09/17/2024 203 (A) QC Pass/Fail 09/17/2024 Passed QC LOT # 09/17/2024 8 QC Expiration Date 09/17/2024 73,125 (more content not included)... [facility] 02-03-2025 Note Please let him know his ECHO showed his heart function improved to normal at 60%, yay! He has some mildly leaky mitral/aortic/tricuspid valves that we can just monitor. Important to keep up with good BP control so we can help preserve his heart function. Thanks! [facility] 10-23-2024 Note Cardiovascular Medic [facility] SUBJECTIVE Chief Complaint Patient presents with Atrial [...] diabetes mellitus (CMS/HCC) Coronary artery disease involving cap[place] band coronary artery of cap[place] band heart without angina pectoris Chronic systolic CHF (congestive heart failure), NYHA class 2 (CMS/HCC) Bradycardia Cellulitis long-term current use of anticoagulant therapy Plaque psoriasis [...] 09/17/2024, Discharged on (more content not included)... [facility] 10-23-2024 Note Patient here for fol low up afib ablation performed on 09/17/[address] Sparrow. Doing very well. Denies chest pain, SOB, palpitations, lightheadedness/syncope, and bleeding on Eliquis. Review of Systems Musculoskeletal: Positive for back pain and joint pain. All other systems reviewed and are negative. 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 [facility] 09-17-2024 Note ATRIAL FIBRILLATION ABLATION PROCEDURE NOTE DATE OF PROCEDURE: 09/17/2024 PERFORMING PHYSICIAN: Dr. Aren Sparrow HUMAN RESOURCE ASSISTANT: JHOAN CONSENT: Patient NAME OF THE PROCEDURE: [...] Coumadin ridge. Esophagus was mapped using the behaview 3D mapping software and noted to be [...] on fluoroscopy. The (more content not included)... 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 Additional Equipment Requests [facility] 09-17-2024 Note Arterial Line: Date/Time: 09/17/2024 [...] mL - 09/17/2024 2:00:00 PM Staffing Performed: resident/HIRE CAR DRIVER/CAA and anesthesiologist Anesthesiologist: Perry Chou MD Resident/HIRE CAR DRIVER: Guillaume Clements MD Performed by: Guillaume Clements MD Authorized by: Perry Chou MD [facility] 09-17-2024 Note Airway Date/Time: 09/17/2024 2:32 PM Urgency: elective Airway not difficult General Information and Staff Patient location during procedure: [place] Anesthesiologist: Perry Chou MD Resident/HIRE CAR DRIVER/CAA: Guillaume Clements MD Performed: resident/HIRE CAR DRIVER/CAA Indications and Patient Condition Indications for airway [...] 1 Number of other approaches attempted: 0 [facility] 06-17-2024 Note [facility] Consult Note [...] CAD, hypertension, hyperlipidemia. He was recently at [facility] ER in August 2021 for strokelike [...] Insecurity: No Food Insecurity (08/24/2022) Received from [employer], [employer], [employer] Hunger Screening Within the past 12 months [...] on file Intimate Partner Violence: Unknown (08/23/2023) [place] Safety & Environment Fear of Current or Ex-Partner: Not on file Emotionally Abused: Not on file Physically Abused: Not on file Sexually Abused: Not on file Physically or Sexually Abused: Not on file Depression: Not at risk (11/12/2020) Received from [facility], [facility] PHQ-2 PHQ-2 score: 0 Housing Stability: Low Risk (08/24/2022) Received from [employer], [employer], [facility] Housing Instability Are you worried or [...] to time, place, (more content not included)... [facility] 04-22-2024 Note Patient here for 6 [...] All other systems reviewed and are negative. [facility] 04-22-2024 Note [facility] Consult Note [...] CAD, hypertension, hyperlipidemia. He was recently at [facility] ER in August 2021 for strokelike [...] on file Intimate Partner Violence: Unknown (08/23/2023) [place] Safety & Environment Fear of Current or [...] of emboli P (more content not included)... [facility] 10-12-2022 Note CONSULTATION CONSULTATION DATE: [...] our patients to inform us about any [id number] medications or herbal remedies/nutritional supplements/alternative remedies. 2. [...] options with their primary care provider. [facility] 05-11-2022 Note CONSULTATION CONSULTATION DATE: 05/11/2022 [...] may call us at any time. [facility] 02-02-2022 Note CONSULTATION CONSULTATION DATE: 02/02/2022 [...] three months' time unless otherwise indicated. [facility] 11-23-2020 Note HNO ID: [id number] Author: Rula Allen APRN.CHECKERING MACHINE ADJUSTER Service: ? Author Type: Nurse Practitioner Type: Progress Notes Filed: 11/23/2020 9:19 PM Note Text: No show [facility] 11-23-2020 Note Patient Outreach (UR OLMN) RADHA PITTS ([id number]) 1950 M Date Time Provider Department 11/23/20 WEIGHT, COLE ZHU During your visit today, we recorded the following information about you: Allergies As of Date: 11/23/2020 Noted Allergy Reaction CLINDAMYCIN PHOSPHATE 12/12/2018 7 - Swelling Date Reviewed: 11/12/2020 Reviewed by: Praveena Pritchard MA - Fully Assessed Visit Diagnosis:Screening for genitourinary condition [Z13.89] Order(s):URINALYSIS, DIPSTICK ONLY [SQUA] Order #: [id number] Prescriptions as of 11/23/2020 Sig: FOLIC ACID [...] List As Of Date 11/23/2020 Noted Resolved 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 Author Type: Physician Type: Progress Notes Filed: 11/12/2020 9:25 AM Note Text: PATIENT NAME: Radha Pitts CLINIC NO.: [id number] ATTENDING PHYSICIAN: Valentine Thurman MD DATE OF SERVICE: November 12, [address] Valentine Thurman [address] [place], [place] [id number] here is an update on a follow [...] do not hesitate to contact me at [phone]. Valentine Thurman MD Hematology/Medical Oncology [facility] 15 I spent a total of 15 minutes on the date of the service which included preparing to see the patient, [id number] patient care, completing clinical documentation, obtaining and/or reviewing separately obtained history and ordering medications, tests, or procedures. Medical Decision Making CC: [facility] Evaluation + Plan note Future Appointments Appointment Date:06/18/2024 02:00:00 PM Scheduled Provider:Abelardo MATTA MD Location:[facility] Appointment Type:[address] [facility] course Narrative No data available for this section [facility] Discharge instructions No data available for this section [facility] [place] Progress note No data available for this section [facility] Summary Purpose Family History No Family History [...] section and content) DATE CREATED AUTHOR 08/01/2019 [facility] DATE CREATED AUTHOR AUTHOR'S ORGANIZ ATION 07/05/2021 [facility] DATE CREATED AUTHOR AUTHOR'S ORGANIZ ATION 07/26/2021 [facility] DATE CREATED AUTHOR AUTHOR'S ORGANIZ ATION 12/10/2022 [facility] DATE CREATED AUTHOR AUTHOR'S ORGANIZ ATION 06/22/2024 [facility] DATE CREATED AUTHOR AUTHOR'S ORGANIZ ATION 02/27/2025 [facility] DATE CREATED AUTHOR AUTHOR'S ORGANIZ ATION 03/08/2025 [facility] Source Comments (unrecognize d section and content) In the event this informatio n is protected by the Federal Confidentiality of Alcohol and Drug Abuse Patient Records regulations: The Federal rules restrict any use of the information to criminally investigate or prosecute any alcohol or drug abuse patient.[facility] the event this information is protected by the Federal Confidentiality of Alcohol and Drug Abuse Patient Records regulations: The Federal rules restrict any use of the information to criminally investigate or prosecute any alcohol or drug abuse patient.[facility] the event this information is protected by the Federal Confidentiality of Alcohol and Drug Abuse Patient Records regulations: The Federal rules restrict any use of the information to criminally investigate or prosecute any alcohol or drug abuse patient.[facility] the event this information is protected by the Federal Confidentiality of Alcohol and Drug Abuse Patient Records regulations: The Federal rules restrict any use of the information to criminally investigate or prosecute any alcohol or drug abuse patient.[facility] Patient Care team informatio n (unrecognized section and content) Personnel Name: MILADIS PEREIRA CNP Address: Address: [address] [place] [address] DINORAH PONCE, [address] Personnel Name: MILADIS PEREIRA CNP Address: Address: [address] [place] [address] DINORAH PONCE, [address] FOR RECORDS PERTAINING TO PATIENTS WHO [...] BE BASED ON THE PRIMARY CLINICAL RECORDS. [facility]. provides no warranty or guarantee of the accuracy or completeness of information in this document.
--- NOTE | 2025-03-11 08:59 | XR_ITS ---
The [address] [address] Patient Name: RADHA PETERS MRN: [id number] date: 1950 Sex: M Assigned Patient Location: LAB Current Patient Location: LAB Accession/Order Number: [id number] Exam Date: 03/11/2025 09:00 Report Date: 03/11/2025 10:07 At the request of: BENJAMIN GLOVER APRN Procedure: XR chest 2V PA AND LATERAL CHEST: CLINICAL HISTORY: prison use of amiodarone COMPARISON: 10/23/2022 There is no focal parenchymal consolidation, effusion or pneumothorax. The cardiac, hilar and mediastinal silhouettes are within normal limits. There is no vascular congestion. The visualized bony thorax is intact. There is thoracolumbar levoscoliotic curvature and endplate spurring. Some mild degenerative change at the shoulders. XR/XR chest 2V IMPRESSION: NO ACUTE CARDIOPULMONARY ABNORMALITY. Impression dictated by: Ariadna Ballesteros M.D. 03/11/2025 10:07 AM Dictation Location: [employer] Electronically authenticated by: [id number] Y Date: 03/11/2025 10:07
[2025-03-11 09:22] LABS: Alanine Aminotransferase 26 U/L (16-63); Albumin Globulin Ratio 1.3; Albumin Level 4.3 g/dL (3.4-5.0); Alkaline Phosphatase 50 U/L (46-116); Aspartate Amino Transferase 31 U/L (15-37); Globulin 3.4 g/dL; Total Protein 7.7 g/dL (6.4-8.2)
[2025-03-11 10:16] LABS: Thyroid Stimulating Hormone 110.110 uIU/mL (0.358-3.740)
== END 2025-03-11 08:31 | disposition home or self-care (01) ==
LOC: LAB 08:32
PROVIDERS: PCP Nurse Practitioner Family; Visit Provider Nurse Practitioner Family
DX: Z79.899 Other long term (current) drug therapy (principal)
CPT/HCPCS: 36415; 71046; 80076; 84439; 84443